=== PATIENT | female | born 1940 | race Caucasian/White ===

== ENCOUNTER → 2017-04-03 | Outpatient (CLI) | payer OTHER ==
[~2017-04-03] MED LIST: ACET10SO3 NEB; ALBUAER19 INH; BRVIN INH; CALC500C70 PO; CHOL1000 PO; ENOX40IN SQ; [UNRECOGNIZED DRUG - OTHER] NEB; prednisone PO
--- NOTE | 2017-04-03 16:32 | ECHOCARDIOGRAM REPORT ---
*NOTICE TO RECEIVING DEMOCRAT AGENCY This information is strictly Confidential and protected under [place] law. [place] law prohibits you from making any further disclosure of this information unless further disclosure is expressly permitted by the written consent of the person to whom it pertains or is authorized by law. A general authorization for the release of medical or other information is not sufficient for this purpose. Hospital accepts no responsibility if the information is made available to any other person, INCLUDING THE PATIENT. Interpretation Summary * Name: PREETHI TRINH Study Date: 04/03/2017 12:36 PM BP: 111/71 mmHg * Patient Location: [facility] HR: 69 * : 1940 (M/d/yyyy) Gender: Female Height: 64 in * Age: 77 yrs Ethnicity: [place] Weight: 144 lb * Ordering Physician: Alejandro Sales * Referring Physician: Alejandro Sales * Performed By: Cindy Edwards RDCS * * Reason For Study: Hypoxemia * BSA: 1.7 m2 * Normal biventricular systolic function. * Normal chamber dimensions. * Class I left ventricular diastolic dysfunction. * Trace pulmonic, mitral, and triscupid regurgitation. * No evidence of elevated right heart pressures. * -- Conclusions -- * Aortic valve sclerosis mild, without significant aortic valvular stenosis. Procedure Details * A complete two-dimensional transthoracic echocardiogram was performed (2D, M-mode, Doppler and color flow Doppler). Left Ventricle * The left ventricle is normal in size. * There is normal left ventricular wall thickness. * Ejection Fraction = 65-70%. * A full diastolic examination was done with clinical findings of Class I diastolic dysfunction. * The left ventricular wall motion is normal. Right Ventricle * The right ventricle is normal in size and function. * The right ventricular systolic function is normal as assessed by tricuspid annular plane systolic excursion (TAPSE) (normal >1.5 cm). Atria * The left atrial size is normal. * Right atrial size is normal. * No ASD detected; PFO is not assessed. Mitral Valve * There is mild mitral annular calcification. * There is no mitral valve stenosis. * There is trace mitral regurgitation. Tricuspid Valve * The tricuspid valve is normal. * There is no tricuspid stenosis. * There is trace tricuspid regurgitation. * Right ventricular systolic pressure is normal. Aortic Valve * The aortic valve is trileaflet. * The aortic valve opens well. * Aortic valve sclerosis mild, without significant aortic valvular stenosis. * No aortic regurgitation is present. Pulmonic Valve * The pulmonic valve is not well visualized. * Pulmonic stenosis is absent. * Trace pulmonic valvular regurgitation. Great Vessels * The aortic root is normal size. Pericardium/Pleural * There is no pericardial effusion. Great Vessels * Normal inferior vena cava diameter and respiratory variation suggests normal central venous pressure. MMode 2D Measurements and Calculations IVSd 0.90 cm IVSs 1.2 cm LVIDd 4.5 cm LVIDs 2.9 cm LVPWd 1.0 cm LVPWs 1.3 cm IVS/LVPW 0.89 FS 34.8 % EDV(Teich) 92.8 ml ESV(Teich) 33.3 ml EF(Teich) 64.1 % EDV(cubed) 91.6 ml ESV(cubed) 25.4 ml EF(cubed) 72.2 % % IVS thick 31.0 % % LVPW thick 26.9 % LV mass(C)d 143.9 grams LV mass(C)dI 84.6 grams/m\S\2 LV mass(C)s 110.2 grams LV mass(C)sI 64.8 grams/m\S\2 SV(Teich) 59.5 ml SI(Teich) 35.0 ml/m\S\2 SV(cubed) 66.2 ml SI(cubed) 38.9 ml/m\S\2 Ao root diam 3.1 cm Ao root area 7.4 cm\S\2 ACS 1.6 cm LA dimension 3.1 cm asc Aorta Diam 3.1 cm LA/Ao 1.0 LVAd ap4 20.7 cm\S\2 LVLd ap4 7.0 cm EDV(MOD-sp4) 53.5 ml EDV(sp4-el) 52.0 ml LVAs ap4 10.5 cm\S\2 LVLs ap4 5.8 cm ESV(MOD-sp4) 16.6 ml ESV(sp4-el) 16.0 ml EF(MOD-sp4) 68.9 % EF(sp4-el) 69.3 % LVAd ap2 22.2 cm\S\2 LVLd ap2 7.3 cm EDV(MOD-sp2) 59.2 ml EDV(sp2-el) 57.5 ml LVAs ap2 13.1 cm\S\2 LVLs ap2 6.7 cm ESV(MOD-sp2) 23.5 ml ESV(sp2-el) 21.8 ml EF(MOD-sp2) 60.3 % EF(sp2-el) 62.1 % LVLd %diff 3.3 % EDV(MOD-bp) 57.3 ml LVLs %diff 12.8 % ESV(MOD-bp) 20.8 ml EF(MOD-bp) 63.7 % SV(MOD-sp4) 36.9 ml SI(MOD-sp4) 21.7 ml/m\S\2 SV(MOD-sp2) 35.7 ml SI(MOD-sp2) 21.0 ml/m\S\2 SV(MOD-bp) 36.5 ml SI(MOD-bp) 21.5 ml/m\S\2 SV(sp4-el) 36.0 ml SI(sp4-el) 21.2 ml/m\S\2 SV(sp2-el) 35.7 ml SI(sp2-el) 21.0 ml/m\S\2 Doppler Measurements and Calculations MV E max marquis 65.0 cm/sec MV A max marquis 68.9 cm/sec MV E/A 0.94 MV dec time 0.30 sec Ao V2 max 120.8 cm/sec Ao max PG 5.8 mmHg Ao max PG (full) 1.8 mmHg LV V1 max PG 4.0 mmHg LV V1 max 100.4 cm/sec PA V2 max 103.2 cm/sec PA max PG 4.3 mmHg PI max marquis 142.5 cm/sec PI max PG 8.1 mmHg PI dec slope 103.0 cm/sec\S\2 PI P1/2t 405.2 msec
== END | disposition home or self-care (01) ==
LOC: C.CPL 12:24
PROVIDERS: ATTEND Internal Medicine Critical Care Medicine
DX: R09.02 Hypoxemia (principal)

== ENCOUNTER → 2017-09-17 | Outpatient (CLI) | payer OTHER ==
--- NOTE | 2017-09-22 15:02 | ECHOCARDIOGRAM REPORT ---
*NOTICE TO RECEIVING REPUBLICAN AGENCY This information is strictly Confidential and protected under [place] law. [place] law prohibits you from making any further disclosure of this information unless further disclosure is expressly permitted by the written consent of the person to whom it pertains or is authorized by law. A general authorization for the release of medical or other information is not sufficient for this purpose. Hospital accepts no responsibility if the information is made available to any other person, INCLUDING THE PATIENT. Interpretation Summary * Name: PREETHI TRINH Study Date: 09/17/2017 01:27 PM BP: 116/62 mmHg * Patient Location: [facility] HR: 77 * : 1940 (M/d/yyyy) Gender: Female Height: 62 in * Age: 77 yrs Ethnicity: [place] Weight: 144 lb * Ordering Physician: Zeus Garcia * Referring Physician: Zeus Garcia. * Performed By: Milli Coello RDCS * * Reason For Study: ENDOMETRIAL CA, METS, PRE-CHEMO * BSA: 1.7 m2 * -- Conclusions -- * 1. Normal LV size, moderate concentric LVH. * 2. LVEF 65-70%. No regional wall motion abnormalities. * 3. Normal RV size and function. * 4. No significant valvular pathology. * 5. Compared with prior study on 04/03/2017: No significant changes. Procedure Details * A complete two-dimensional transthoracic echocardiogram was performed (2D, M-mode, Doppler and color flow Doppler). Left Ventricle * The left ventricle is grossly normal size. * There is moderate concentric left ventricular hypertrophy. * Ejection Fraction = 65-70%. * No regional wall motion abnormalities noted. Right Ventricle * The right ventricle is grossly normal size. * The right ventricular systolic function is qualitatively normal. Atria * The left atrial size is normal. * The right atrium is borderline dilated. * No ASD detected; PFO is not assessed. Mitral Valve * The mitral valve leaflets appear thickened, but open well. * There is mild mitral annular calcification. * Calcified mitral apparatus. * There is borderline mitral valve prolapse. * There is no mitral valve stenosis. * Significant mitral regurgitation is absent. Tricuspid Valve * There is trace tricuspid regurgitation. Aortic Valve * The aortic valve is trileaflet. * No hemodynamically significant valvular aortic stenosis. * Trace aortic regurgitation. Pulmonic Valve * The pulmonary valve is inadequately visualized, but the Doppler data is adequate for interpretation. * There is no pulmonic valvular stenosis. * Trace pulmonic valvular regurgitation. Great Vessels * The aortic root and proximal ascending aorta are normal sized. Pericardium/Pleural * There is no pericardial effusion. Great Vessels * Normal inferior vena cava size and collapsability with sniff indicates a normal right atrial pressure of 3 mmHg MMode 2D Measurements and Calculations IVSd 1.8 cm IVSs 2.1 cm LVIDd 3.1 cm LVIDs 1.9 cm LVPWd 1.2 cm LVPWs 2.2 cm IVS/LVPW 1.4 FS 38.7 % EDV(Teich) 36.9 ml ESV(Teich) 10.9 ml EF(Teich) 70.5 % EDV(cubed) 28.9 ml ESV(cubed) 6.7 ml EF(cubed) 76.9 % % IVS thick 17.7 % % LVPW thick 77.8 % LV mass(C)d 160.8 grams LV mass(C)dI 96.7 grams/m\S\2 LV mass(C)s 186.9 grams LV mass(C)sI 112.4 grams/m\S\2 SV(Teich) 26.1 ml SI(Teich) 15.7 ml/m\S\2 SV(cubed) 22.2 ml SI(cubed) 13.4 ml/m\S\2 ACS 1.0 cm LA dimension 3.3 cm asc Aorta Diam 3.1 cm LVOT diam 1.9 cm LVOT area 2.7 cm\S\2 LVAd ap4 20.3 cm\S\2 LVLd ap4 6.8 cm EDV(MOD-sp4) 49.4 ml EDV(sp4-el) 51.4 ml LVAs ap4 9.4 cm\S\2 LVLs ap4 5.1 cm ESV(MOD-sp4) 14.4 ml ESV(sp4-el) 14.8 ml EF(MOD-sp4) 70.9 % EF(sp4-el) 71.3 % LVAd ap2 19.6 cm\S\2 LVLd ap2 6.8 cm EDV(MOD-sp2) 47.4 ml EDV(sp2-el) 48.1 ml LVAs ap2 10.5 cm\S\2 LVLs ap2 5.8 cm ESV(MOD-sp2) 15.7 ml ESV(sp2-el) 16.0 ml EF(MOD-sp2) 66.8 % EF(sp2-el) 66.8 % LVLd %diff 0.03 % EDV(MOD-bp) 48.4 ml LVLs %diff 12.6 % ESV(MOD-bp) 16.1 ml EF(MOD-bp) 66.7 % SV(MOD-sp4) 35.0 ml SI(MOD-sp4) 21.1 ml/m\S\2 SV(MOD-sp2) 31.7 ml SI(MOD-sp2) 19.1 ml/m\S\2 SV(MOD-bp) 32.3 ml SI(MOD-bp) 19.4 ml/m\S\2 SV(sp4-el) 36.7 ml SI(sp4-el) 22.0 ml/m\S\2 SV(sp2-el) 32.1 ml SI(sp2-el) 19.3 ml/m\S\2 Doppler Measurements and Calculations MV E max marquis 59.9 cm/sec MV A max marquis 83.6 cm/sec MV E/A 0.72 MV dec time 0.37 sec Ao V2 max 114.7 cm/sec Ao max PG 5.3 mmHg Ao max PG (full) 0.71 mmHg MORALES(V,A) 2.5 cm\S\2 MORALES(V,D) 2.5 cm\S\2 LV V1 max PG 4.6 mmHg LV V1 max 106.8 cm/sec PA V2 max 65.8 cm/sec PA max PG 1.7 mmHg PI end-d marquis 92.3 cm/sec
== END | disposition home or self-care (01) ==
LOC: C.CPL 13:23
PROVIDERS: ATTEND Internal Medicine Hematology
DX: Z01.818 Encounter for other preprocedural examination (principal); C54.1 Malignant neoplasm of endometrium; C79.51 Secondary malignant neoplasm of bone

== ENCOUNTER 2020-01-11 21:40 | Inpatient (IN) ==
[2020-01-11] MEDS ORDERED: ONDANSETRON INJ 2 MG/ML 2 ML VIAL IV STA (22:10)
--- NOTE | 2020-01-11 22:14 | Emergency Department Note ---
History of Present Illness General Chief complaint: Abdominal Pain Stated complaint: AB PAIN, GI ASSESSMENT Time Seen by Provider: 01/11/20 21:48 Source: patient, family and RN notes reviewed Mode of arrival: EMS Limitations: altered mental status History of Present Illness Provider complaint: Abdominal pain Onset (ago): day(s) Location: abdomen and left Severity: moderate Pain Consistency: + constant Maximum Pain Intensity: 5 Relieved By: + none Associated symptoms: + nausea/vomiting; no chest pain, no fever/chills and no shortness of breath This is an 79-year-old female who presents with abdominal pain for the past 3 days. She states it is located in the left upper quadrant as well as the right lower quadrant. It does not radiate to the back. She is unable to describe it. No modifying factors. It is associated with loss of appetite as well as vomiting which started today. Her son states that the vomit looks like coffee grounds but there was no bright red blood. She denies any fever, chest pain, shortness of breath or cough or cold symptoms. She did vomit in the ambulance which was said to resemble coffee-ground emesis. She does have a history of uterine cancer with mets to the left hip and has been on oxycodone for the past week. The patient's son states that she has seemed to be slower to respond since starting that medication. Home Medications Medication Instructions Recorded Confirmed Type metformin 850 mg tablet 850 mg PO BIDM 09/22/18 01/12/20 History cholecalciferol (vitamin D3) 25 1,000 units PO BID cap 04/20/19 01/12/20 History mcg (1,000 unit) capsule ondansetron 8 mg disintegrating 8 mg PO TID PRN tab 04/20/19 01/12/20 History tablet prochlorperazine maleate 10 mg 10 mg PO Q6H PRN tab 04/20/19 01/12/20 History tablet prednisone 10 mg tablet 10 mg PO DAILY #90 tab 11/14/19 01/12/20 Rx oxycodone 5 mg capsule 10 mg PO Q6H PRN 11/18/19 01/12/20 History albuterol sulfate 2 puff INHALATION Q4 PRN 01/12/20 01/12/20 History oxycodone [OxyContin] 20 mg PO Q12 01/12/20 01/12/20 History Allergies Allergy/AdvReac Type Severity Reaction Status Date / Time azithromycin Allergy Severe Hives Verified 01/12/20 00:38 mold Allergy Unknown SHORTNESS Verified 01/12/20 00:38 OF BREATH Past Med/Surg History Medical History Colitis COPD (chronic obstructive pulmonary disease) Endometrial cancer H/O chronic ulcerative colitis Left hip pain left hip / Core Needle BX Surgical History H/O elbow surgery Right elbow , surgery many yrs ago S/P KAREEN-BSO surgery 3 - 4 yrs ago Family History Mother , age 49 Heart disease enlarged heart Father , age 75 Stroke Brother , age 84 Prostate cancer Other No pertinent family history Social History Smoking Status: Never smoker Second Hand Exposure: No; Hx Alcohol Use: No Hx Substance Use: No Preferred Language: Mongolian Communication Ability: Effective Visual Impairment: No Limitations Hearing Ability: Normal Dinner Cook Required: No Beliefs That Will Affect Care: None marital status: Current Living Situation: Spouse Current Living Situation Comment: lives with who is a stroke victim / she takes care of him current occupational status: retired 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 and A total of 10 systems reviewed and were otherwise negative Physical Exam Vital Signs Vital Signs - 24 hr 01/11/20 21:53 01/11/20 21:55 01/11/20 22:00 Temperature 36.6 C Temperature Source Oral Pulse Rate 110 H 93 H Pulse Rate from SpO2 Sensor 100 H Respiratory Rate 18 15 Respiratory Effort / Characteristics Non-Labored Spontaneous Respiratory Depth Normal Respiratory Pattern Regular Blood Pressure 120/90 121/86 Blood Pressure Mean 100 96 Blood Pressure Position Lying Pulse Oximetry 92 92 92 Oxygen Delivery Method Room Air Room Air Room Air Sepsis Recent Fever Within 48 Hours No Sepsis New/Unexplained Change in Mental Status No Sepsis Action Taken by Nursing No Action Required 01/11/20 22:46 01/11/20 23:00 01/11/20 23:30 Temperature Temperature Source Pulse Rate 98 H 109 H 117 H Pulse Rate from SpO2 Sensor 97 H 110 H 117 H Respiratory Rate 16 16 16 Respiratory Effort / Characteristics Respiratory Depth Respiratory Pattern Blood Pressure 123/84 118/84 114/81 Blood Pressure Mean 92 91 86 Blood Pressure Position Pulse Oximetry 93 93 91 Oxygen Delivery Method Room Air Room Air Room Air Sepsis Recent Fever Within 48 Hours Sepsis New/Unexplained Change in Mental Status Sepsis Action Taken by Nursing 01/12/20 00:00 01/12/20 00:30 01/12/20 01:00 Temperature Temperature Source Pulse Rate 114 H 124 H 122 H Pulse Rate from SpO2 Sensor 103 H 122 H 122 H Respiratory Rate 16 18 19 Respiratory Effort / Characteristics Respiratory Depth Respiratory Pattern Blood Pressure 126/85 101/70 107/81 Blood Pressure Mean 92 88 88 Blood Pressure Position Pulse Oximetry 91 92 91 Oxygen Delivery Method Room Air Room Air Room Air Sepsis Recent Fever Within 48 Hours Sepsis New/Unexplained Change in Mental Status Sepsis Action Taken by Nursing Constitutional: Vital signs reviewed. Eyes: Pupils are equal round reactive to light. Conjunctiva are noninjected. ENT: Pharynx is clear without erythema or exudate. Mucous membranes are dry. Neck supple without meningeal signs. Respiratory: Clear to auscultation bilaterally. Breath sounds are equal bilaterally. Cardiovascular: Tachycardic. Heart rate 110. GI: Soft, nondistended with diffuse tenderness without guarding. Bowel sounds are present. Rectal: Guaiac negative brown stool. Musculoskeletal: No peripheral edema. No lower extremity tenderness. Integumentary: No cyanosis. or jaundice. Neurological: The patient is awake and alert. Slow to respond to questions. Moves all extremities. Cranial nerves grossly intact. Psychiatric: Normal affect. Not anxious appearing. Course Administered Medications Magnesium Sulfate/Dextrose (Magnesium Sulfate / D5w) 1 gm in 100 mls @ 50 mls/hr IV Q2H REESE Stop: 01/12/20 08:06 Last Admin: 01/12/20 00:43 Dose: 50 mls/hr Documented by: [id number] Discontinued Medications Sodium Chloride (Nss) 500 mls @ 500 mls/hr IV .Q1H ONE Stop: 01/12/20 00:55 Last Admin: 01/12/20 00:53 Dose: 500 mls/hr Documented by: [id number] Pantoprazole Sodium 80 mg/ (Dextrose) 100 mls @ 400 mls/hr IV ONE STA Stop: 01/12/20 00:14 Last Infusion: 01/12/20 00:35 Dose: 0 mls/hr Documented by: [id number] Admin: 01/12/20 00:20 Dose: 400 mls/hr Documented by: [id number] Ondansetron HCl (Ondansetron Inj 2 Mg/Ml 2 Ml Vial) 4 mg IV NOW STA Stop: 01/11/20 22:11 Last Admin: 01/11/20 22:15 Dose: 4 mg Documented by: [id number] Medical Decision Making Differential Diagnosis Upper GI bleed, anemia, SBO, metastatic disease to the abdomen, colitis Medical Records Attestation: I reviewed the patient's medical records. I did perform a limited focused review of portions of the patient's old chart o n the electronic medical record. The patient has had no recent pertinent visits to this hospital. I did obtain records from the [facility] system. The patient did have a ultrasound of the abdomen pelvis earlier today at 10:35 AM. This demonstrated 3 hypoechoic areas within the liver concerning for metastatic disease. She does have cholelithiasis without signs of cholecystitis. There is trace ascites and bilateral renal cysts. Home Medications Current Medication List: was personally reviewed by me Laboratory Data Attestation: I reviewed the patient's lab results. Result diagrams: 01/12/20 00:23 01/11/20 22:13 Lab Results 01/11/20 01/11/20 01/11/20 Range/Units 22:13 22:13 23:20 WBC 8.93 (4.8-10.8) K/uL RBC 4.50 (4.2-5.4) M/uL Hgb 10.5 L (12.0-16.0) g/dL Hct 33.5 L (37-47) % MCV 74.4 L (80-100) fL MCH 23.3 L (25-34) pg MCHC 31.3 L (32-36) g/dL RDW Std Deviation 48.9 H (36.4-46.3) fL RDW Coeff of Gretta 18.3 H (11.5-14.5) % Plt Count 506 H (130-400) K/uL MPV 8.6 (7.4-10.4) fL Immature Gran % (Auto) 0.4 % Neut % (Auto) 83.8 % Lymph % (Auto) 8.1 % [place] % (Auto) 7.7 % Eos % (Auto) 0.0 % Baso % (Auto) 0.0 % Neut # (Auto) 7.48 H (1.4-6.5) K/uL Lymph # (Auto) 0.72 L (1.2-3.4) K/uL [place] # (Auto) 0.69 H (0.11-0.59) K/uL Eos # (Auto) 0.00 (0-0.5) K/uL Baso # (Auto) 0.00 (0-0.2) K/uL Immature Gran # (Auto) 0.04 H (0.00-0.02) K/uL PT (9.0-12.0) Seconds INR (0.9-1.1) Sodium 133 L (136-145) mmol/L Potassium 3.7 (3.5-5.1) mmol/L Chloride 90 L (98-107) mmol/L Carbon Dioxide 32 (21-32) mmol/L Anion Gap 11.0 (3-11) BUN 32 H (7-18) mg/dl Creatinine 0.80 (0.6-1.2) mg/dl Est Cr Clr Drug Dosing 51.4 ml/min Est GFR ( Amer) 80.1 Est GFR (Non-Af Amer) 69.1 BUN/Creatinine Ratio 40.3 H (10-20) Glucose 142 H (70-99) mg/dl Calcium 9.2 (8.5-10.1) mg/dl Magnesium 1.2 L (1.8-2.4) mg/dl Total Bilirubin 0.4 (0.2-1) mg/dl AST 20 (15-37) U/L ALT 25 (12-78) U/L Alkaline Phosphatase 143 H (45-117) U/L Ammonia (11-32) umol/L Total Protein 7.1 (6.4-8.2) gm/dl Albumin 2.7 L (3.4-5.0) gm/dl Globulin 4.4 H (2.5-4.0) gm/dl Albumin/Globulin Ratio 0.6 L (0.9-2) Lipase 51 L (73-393) U/L Urine Color Dark Yellow Urine Appearance Clear (Clear) Urine pH 5.0 (4.5-7.5) Ur Specific [place] 1.030 (1.000-1.030) Urine Protein 1+ H (Negative) Urine Glucose (UA) Negative (Negative) Urine Ketones 1+ H (Negative) Urine Blood Negative (Negative) Urine Nitrite Negative (Negative) Urine Bilirubin 1+ H (Negative) Urine Urobilinogen Negative (Negative) Ur Leukocyte Esterase Trace H (Negative) Urine WBC (Auto) 1-5 (0-5) /hpf Urine RBC (Auto) 0-4 (0-4) /hpf U Hyaline Cast (Auto) 1-5 (0-5) /lpf U Epithel Cells (Auto) 5-10 H (0-5) /lpf Urine Bacteria (Auto) Negative (Negative) Gastric Fluid pH Gastric Occult Blood (Negative) SARS-CoV-2 Ag (Rapid) (Negative) 01/11/20 01/12/20 01/12/20 Range/Units 23:50 00:10 00:23 WBC (4.8-10.8) K/uL RBC (4.2-5.4) M/uL Hgb 10.4 L (12.0-16.0) g/dL Hct 33.3 L (37-47) % MCV (80-100) fL MCH (25-34) pg MCHC (32-36) g/dL RDW Std Deviation (36.4-46.3) fL RDW Coeff of Gretta (11.5-14.5) % Plt Count (130-400) K/uL MPV (7.4-10.4) fL Immature Gran % (Auto) % Neut % (Auto) % Lymph % (Auto) % [place] % (Auto) % Eos % (Auto) % Baso % (Auto) % Neut # (Auto) (1.4-6.5) K/uL Lymph # (Auto) (1.2-3.4) K/uL [place] # (Auto) (0.11-0.59) K/uL Eos # (Auto) (0-0.5) K/uL Baso # (Auto) (0-0.2) K/uL Immature Gran # (Auto) (0.00-0.02) K/uL PT (9.0-12.0) Seconds INR (0.9-1.1) Sodium (136-145) mmol/L Potassium (3.5-5.1) mmol/L Chloride (98-107) mmol/L Carbon Dioxide (21-32) mmol/L Anion Gap (3-11) BUN (7-18) mg/dl Creatinine (0.6-1.2) mg/dl Est Cr Clr Drug Dosing ml/min Est GFR ( Amer) Est GFR (Non-Af Amer) BUN/Creatinine Ratio (10-20) Glucose (70-99) mg/dl Calcium (8.5-10.1) mg/dl Magnesium (1.8-2.4) mg/dl Total Bilirubin (0.2-1) mg/dl AST (15-37) U/L ALT (12-78) U/L Alkaline Phosphatase (45-117) U/L Ammonia (11-32) umol/L Total Protein (6.4-8.2) gm/dl Albumin (3.4-5.0) gm/dl Globulin (2.5-4.0) gm/dl Albumin/Globulin Ratio (0.9-2) Lipase (73-393) U/L Urine Color Urine Appearance (Clear) Urine pH (4.5-7.5) Ur Specific [place] (1.000-1.030) Urine Protein (Negative) Urine Glucose (UA) (Negative) Urine Ketones (Negative) Urine Blood (Negative) Urine Nitrite (Negative) Urine Bilirubin (Negative) Urine Urobilinogen (Negative) Ur Leukocyte Esterase (Negative) Urine WBC (Auto) (0-5) /hpf Urine RBC (Auto) (0-4) /hpf U Hyaline Cast (Auto) (0-5) /lpf U Epithel Cells (Auto) (0-5) /lpf Urine Bacteria (Auto) (Negative) Gastric Fluid pH 3 Gastric Occult Blood Positive A (Negative) SARS-CoV-2 Ag (Rapid) Negative (Negative) 01/12/20 01/12/20 Range/Units 00:23 00:23 WBC (4.8-10.8) K/uL RBC (4.2-5.4) M/uL Hgb (12.0-16.0) g/dL Hct (37-47) % MCV (80-100) fL MCH (25-34) pg MCHC (32-36) g/dL RDW Std Deviation (36.4-46.3) fL RDW Coeff of Gretta (11.5-14.5) % Plt Count (130-400) K/uL MPV (7.4-10.4) fL Immature Gran % (Auto) % Neut % (Auto) % Lymph % (Auto) % [place] % (Auto) % Eos % (Auto) % Baso % (Auto) % Neut # (Auto) (1.4-6.5) K/uL Lymph # (Auto) (1.2-3.4) K/uL [place] # (Auto) (0.11-0.59) K/uL Eos # (Auto) (0-0.5) K/uL Baso # (Auto) (0-0.2) K/uL Immature Gran # (Auto) (0.00-0.02) K/uL PT 12.1 H (9.0-12.0) Seconds INR 1.2 H (0.9-1.1) Sodium (136-145) mmol/L Potassium (3.5-5.1) mmol/L Chloride (98-107) mmol/L Carbon Dioxide (21-32) mmol/L Anion Gap (3-11) BUN (7-18) mg/dl Creatinine (0.6-1.2) mg/dl Est Cr Clr Drug Dosing ml/min Est GFR ( Amer) Est GFR (Non-Af Amer) BUN/Creatinine Ratio (10-20) Glucose (70-99) mg/dl Calcium (8.5-10.1) mg/dl Magnesium (1.8-2.4) mg/dl Total Bilirubin (0.2-1) mg/dl AST (15-37) U/L ALT (12-78) U/L Alkaline Phosphatase (45-117) U/L Ammonia < 10.0 L (11-32) umol/L Total Protein (6.4-8.2) gm/dl Albumin (3.4-5.0) gm/dl Globulin (2.5-4.0) gm/dl Albumin/Globulin Ratio (0.9-2) Lipase (73-393) U/L Urine Color Urine Appearance (Clear) Urine pH (4.5-7.5) Ur Specific [place] (1.000-1.030) Urine Protein (Negative) Urine Glucose (UA) (Negative) Urine Ketones (Negative) Urine Blood (Negative) Urine Nitrite (Negative) Urine Bilirubin (Negative) Urine Urobilinogen (Negative) Ur Leukocyte Esterase (Negative) Urine WBC (Auto) (0-5) /hpf Urine RBC (Auto) (0-4) /hpf U Hyaline Cast (Auto) (0-5) /lpf U Epithel Cells (Auto) (0-5) /lpf Urine Bacteria (Auto) (Negative) Gastric Fluid pH Gastric Occult Blood (Negative) SARS-CoV-2 Ag (Rapid) (Negative) Imaging Data Radiologist's Impression: Preliminary Findings Only See Final Report For Complete Findings CT ABDOMEN & PELVIS Without Contrast: Comparison 11/09/2017. Small pleural effusions. Mild left basilar atelectasis or scarring. Several right basilar lung nodules measuring up to 6 mm. Multiple vague hypodense hepatic masses measuring up to 2.9 cm in the left lobe, suspicious for hepatic metastases. Markedly distended fluid-filled stomach with large air-fluid level. Diffusely dilated small bowel with multiple air-fluid levels. Findings suspicious for sm all bowel obstruction though a discrete transition point is not identified. There is a fecalized small bowel loop in the right pelvis. Right inguinal hernia, as before containing loop of small bowel and fluid. No significant dilatation of the afferent or efferent limbs. No evidence for acute appendicitis. Pancolonic diverticulosis. No CT evidence for diverticulitis. Calcified gallstones, as before. No abdominal aortic aneurysm. 2.6 cm fat-containing periumbilical ventral abdominal wall hernia, as before. Extensive diffuse osteoblastic metastases. Several thoracolumbar compression fracture deformities which may be pathologic. Radiologist: Tesfaye Chávez M.D. Study ready at 22:59 and initial results transmitted at 23:15 Preliminary Findings Only See Final Report For Complete Findings CT HEAD: Comparison 07/24/2012. No acute intracranial hemorrhage, edema or mass. Moderate ventriculomegaly, as before which may be related to central atrophy. Mild periventricular white matter chronic small vessel ischemic changes. No extra-axial fluid collection. No calvarial fracture. Obits, paranasal sinuses and mastoids are unremarkable. Radiologist: Tesfaye Chávez M.D. Study ready at 22:53 and initial results transmitted at 22:59 ECG Data Attestation: I personally reviewed and interpreted this ECG as follows: Indication: + abdominal pain Rate (beats per minute): 93 Rhythm: + normal sinus ECG Intervals/blocks: + Left anterior fascicular block ECG ST segments: no ST elevation ECG Findings: no PVCs MDM Narrative I did evaluate the patient as noted above. I did obtain history from the patient as well her as her son over the telephone. IV access was established. I did place an order for continuous cardiac monitoring. The monitor showed normal sinus rhythm at a rate of 97 bpm. I did order and personally review the patient's 12-lead EKG as described above. She has no acute ischemic changes. I did order a urine analysis. She does not have a UTI. I did order and review the patient's blood work as noted in the electronic medical record. Her white blood cell count is not elevated. Hemoglobin is 10.5 which is improved from her last visit. Sodium is 133. Glucose is slightly elevated. I did order a CT of the head, abdomen and pelvis. I did review the images myself as well as the radiology report as described above. Head CT is unremarkable. There is no evidence of metastatic disease. CT of the abdomen pelvis shows lesions in the liver concerning for metastatic disease as well as a small bowel obstruction. There is no transition point identified. She does have a right inguinal hernia which does not show any signs of bowel dilation or decompression. I did order a rapid Covid testing for admission. I did discuss the test results with the patient as well as her son over the telephone. I did order an NG tube to low continuous suction. The aspirate was sent down for gastric occult testing. She was guaiac-negative from below. The patient was hospitalized. I did discuss the case with the hospitalist and case technician. Impression & Plan SBO (small bowel obstruction), Hernia, inguinal, right, Anemia, Acute hyponatremia, Hematemesis Discharge Plan Visit Data Chief Complaint: Abdominal Pain Stated Complaint: AB PAIN, GI ASSESSMENT ED Provider: Alejandro Love Discharge Problem: SBO (small bowel obstruction), Hernia, inguinal, right, Anemia, Acute hyponatremia, Hematemesis Patient Disposition: Being Evaluated by Hospitalist Forms Stand Alone Forms: [facility] Prescriptions Prescriptions: No Action oxycodone 5 mg capsule 10 mg PO Q6H PRN (Reason: Severe Pain (Scale Score 7-10)) RF: 0 prednisone 10 mg tablet 10 mg PO DAILY Qty: 90 RF: 1 cholecalciferol (vitamin D3) 25 mcg (1,000 unit) capsule 1,000 units PO BID RF: 0 prochlorperazine maleate 10 mg tablet 10 mg PO Q6H PRN (Reason: Nausea) RF: 0 ondansetron 8 mg tablet,disintegrating 8 mg PO TID PRN (Reason: Nausea) RF: 0 oxycodone [OxyContin] 20 mg tablet,oral only,ext.rel.12 hr 20 mg PO Q12 RF: 0 albuterol sulfate 90 mcg/actuation Hfa Aerosol Inhaler 2 puff INHALATION Q4 PRN (Reason: Shortness Of Breath) RF: 0 metformin 850 mg tablet 850 mg PO BIDM RF: 0 Referrals Referrals: Josiah Reddy MD [Primary Care Provider] - Discharge Problem: Anemia Qualifiers: Anemia type: unspecified type Qualified Code(s): D64.9 - Anemia, unspecified Hematemesis Qualifiers: Nausea presence: unspecified Qualified Code(s): K92.0 - Hematemesis
[2020-01-11 22:26] LABS: Hematocrit (blood only) 33.5 % (37-47); Hemoglobin 10.5 g/dL (12.0-16.0); Immature Granulocytes # (auto) 0.04 K/uL (0.00-0.02); Immature Granulocytes % (auto) 0.4 %; Lymphocytes # (auto) 0.72 K/uL (1.2-3.4); Lymphocytes % (auto) 8.1 %; Mean Corpuscular Hemoglobin 23.3 pg (25-34); Mean Corpuscular Hgb Conc 31.3 g/dL (32-36); Mean Corpuscular Volume 74.4 fL (80-100); Mean Platelet Volume 8.6 fL (7.4-10.4); Monocytes # (auto) 0.69 K/uL (0.11-0.59); Monocytes % (auto) 7.7 %; Neutrophils # (auto) 7.48 K/uL (1.4-6.5); Neutrophils % (auto) 83.8 %; Platelet Count 506 K/uL (130-400); RDW Coefficient of Variation 18.3 % (11.5-14.5); RDW Standard Deviation 48.9 fL (36.4-46.3); White Blood Count 8.93 K/uL (4.8-10.8)
[2020-01-11 22:44] LABS: Albumin Level 2.7 gm/dl (3.4-5.0); BUN Creatinine Ratio 40.3 (10-20); Calcium 9.2 mg/dl (8.5-10.1); Creatinine Clr Calc Pharmacy 51.4 ml/min; Est GFR (African American) 80.1; Est GFR (Non-African American) 69.1; Potassium 3.7 mmol/L (3.5-5.1)
[2020-01-11 22:47] LABS: Albumin Globulin Ratio 0.6 (0.9-2); Bilirubin,Total 0.4 mg/dl (0.2-1); Globulin 4.4 gm/dl (2.5-4.0); Total Protein 7.1 gm/dl (6.4-8.2)
[2020-01-11] MEDS ORDERED: SODIUM CHLORIDE 0.9% 500 ML IV ONE (23:56)
[2020-01-12] MEDS ORDERED: PANTOprazole 80 MG in DEXTROSE 5% 100 ML IV STA
[2020-01-12 00:02] LABS: Magnesium 1.2 mg/dl (1.8-2.4)
[2020-01-12 00:04] LABS: Appearance Urine Clear (Clear); Bacteria Urine Automated Negative (Negative); Blood Urine Negative (Negative); Color Urine Dark Yellow; Glucose Urine UA Negative (Negative); Ketones Urine 1+ (Negative); Leukocyte Esterase Urine Trace (Negative); Nitrite Urine Negative (Negative); Protein Urine 1+ (Negative); RBC Urine Automated 0-4 /hpf (0-4); Urobilinogen Urine Negative (Negative)
[2020-01-12 00:06] LABS: Bilirubin Urine 1+ (Negative)
[2020-01-12 00:07] LABS: Ictotest Urine Positive (Negative)
[2020-01-12 00:34] LABS: Hematocrit (blood only) 33.3 % (37-47); Hemoglobin 10.4 g/dL (12.0-16.0)
[2020-01-12 00:43] LABS: INR 1.2 (0.9-1.1); Prothrombin Time 12.1 Seconds (9.0-12.0)
[2020-01-12] MEDS: MAGNESIUM SULFATE / D5W 1 GM/100 ML BAG IV SCH ×4 (00:43→05:37)
--- NOTE | 2020-01-12 01:00 | History & Physical Report ---
Date of Service January 12, 2020 Assessment & Plan (1) UGIB (upper gastrointestinal bleed): Secondary to gastritis from SBO hx colitis with microperforation (2018) hx metastatic endometrial cancer status post surgery/chemotherapy/radiation progressive disease with new liver/possible lung mets on recent imaging [id number] OxyContin contributory to SBO Hemoglobin currently better than baseline chronic anemia likely secondary to hemoconcentration COPD/asthma/chronic bronchiectasis on chronic steroid Rx, stable lung disease prediabetes, outpatient hemoglobin A1c of 5.01 October 2019 Medical telemetry IV PPI Serial H&H, transfuse PRBC if hemoglobin less than 7 and or for symptomatic anemia GI consult RE UGIB Bowel rest, continue NGT decompression Surgery consult RE bowel obstruction Suppository trial Appropriate to hold [id number] OxyContin for now given bowel obstruction. May benefit from inpatient palliative care consultation if patient's [facility] oncologist (Dr. Garcia) agreeable to delineate goals of care given progression of malignancy/metastatic burden. DVT prophylaxis. SCDs RE GI bleed Full code for now as per son/POA, Mr. Jose C Boucher. He requests updates from providers thru [id number]. Text document was generated using [employer] voice recognition software. It may contain grammatical or spelling errors. Kindly contact undersigned for clarification of any documentation item in question. History of Present Illness Chief Complaint: Abdominal pain as per records Primary Care Provider: Josiah Reddy MD History obtained from patient, family, and records. Limited history from patient secondary to chronic disorientation. Medical history significant for COPD/asthma/chronic bronchiectasis on chronic steroid Rx, metastatic endometrial cancer status post surgery/chemotherapy/radiation, chronic anemia (baseline hemoglobin 9), prediabetes. Last confinement October 2017 for sepsis secondary to colitis with microperforation status post conservative management. Patient decided to stop chemotherapy around April 2019. 4 months ago, patient had a mechanical fall which led to incidental discovery of bone mets on imaging. Patient mentation has not been the same after fall as per family. Patient family wondering about a stroke. Patient started by outpatient providers on [id number] OxyContin for uncontrolled hip bone mets pain last month. Patient/family to decide on chemotherapy as per recent outpatient Oncology note from last month. Re-radiation recommendation as per outpatient Radiation Oncology note from 2 months ago. Outpatient G Palliative Medicine recommended DNR/limited treatment after video meeting with patient last month which patient son was not in agreement with. 3 days achy abdominal pain with bilious emesis and constipation symptoms. Patient denies chest pain, shortness of breath, cough symptoms. Patient a little more confused than usual as per family. No fever, no chills. PCP office ordered outpatient abdominal ultrasound yesterday which showed 3 hypoechoic areas within the liver concerning for metastatic disease. Cholelithiasis. Bilateral renal cysts. Trace ascites. Emesis later noted to be coffee-ground. No OTC NSAID intake. Patient brought to the ER for evaluation. NGT inserted at the ER for bowel obstruction. 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 Allergies Allergy/AdvReac Type Severity Reaction Status Date / Time azithromycin Allergy Severe Hives Verified 01/12/20 00:38 mold Allergy Unknown SHORTNESS Verified 01/12/20 00:38 OF BREATH Home Medications Medication Instructions Recorded Confirmed Type metformin 850 mg tablet 850 mg PO BIDM 09/22/18 01/12/20 History cholecalciferol (vitamin D3) 25 1,000 units PO BID cap 04/20/19 01/12/20 History mcg (1,000 unit) capsule ondansetron 8 mg disintegrating 8 mg PO TID PRN tab 04/20/19 01/12/20 History tablet prochlorperazine maleate 10 mg 10 mg PO Q6H PRN tab 04/20/19 01/12/20 History tablet prednisone 10 mg tablet 10 mg PO DAILY #90 tab 11/14/19 01/12/20 Rx oxycodone 5 mg capsule 10 mg PO Q6H PRN 11/18/19 01/12/20 History albuterol sulfate 2 puff INHALATION Q4 PRN 01/12/20 01/12/20 History oxycodone [OxyContin] 20 mg PO Q12 01/12/20 01/12/20 History Past Med/Surg History Medical History Colitis COPD (chronic obstructive pulmonary disease) Endometrial cancer H/O chronic ulcerative colitis Left hip pain left hip / Core Needle BX Surgical History H/O elbow surgery Right elbow , surgery many yrs ago S/P KAREEN-BSO surgery 3 - 4 yrs ago Family History Mother , age 49 Heart disease enlarged heart Father , age 75 Stroke Brother , age 84 Prostate cancer Other No pertinent family history Social History Smoking Status: Never smoker Second Hand Exposure: No; Hx Alcohol Use: No Hx Substance Use: No Preferred Language: Spanish Communication Ability: Effective Visual Impairment: No Limitations Hearing Ability: Normal Music Historian Required: No Beliefs That Will Affect Care: None marital status: Current Living Situation: Spouse Current Living Situation Comment: lives with who is a stroke victim / she takes care of him current occupational status: retired 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 Feels Safe at Home: Yes Childhood Exposure to Second-Hand Smoke: Yes Assistive Devices: Glasses and Walker Review of Systems Review of Systems: Could not be reliably obtained Physical Exam Physical Exam: GENERAL: Comfortable, laconic, mild hearing impairment, no respiratory distress SKIN: Pallor, warm HEENT: Pale palpebral conjunctivae, no ptosis, dry buccal mucosa, NGT in place NECK : Supple, no tenderness CHEST : CTA, no tenderness HEART : Tachycardic, no obvious murmurs ABDOMEN: Some distention, nontender EXTREMITIES : No LE swelling/tenderness, no other conspicuous deformities noted NEUROLOGIC : Coherent, disoriented, no facial asymmetry, no other gross focality Results & Data Results & Data ([facility]) Vital Signs (Past 12 Hours) Vital Signs Temp Pulse Resp BP Pulse Ox 01/12/20 00:00 114 H 16 126/85 91 01/11/20 23:30 117 H 16 114/81 91 01/11/20 23:00 109 H 16 118/84 93 01/11/20 22:46 98 H 16 123/84 93 01/11/20 22:00 93 H 15 121/86 92 01/11/20 21:55 36.6 C 110 H 18 120/90 92 01/11/20 21:53 92 Laboratory Results Laboratory Results WBC 8.93 K/uL (4.8-10.8) 01/11/20 22:13 RBC 4.50 M/uL (4.2-5.4) 01/11/20 22:13 Hgb 10.4 g/dL (12.0-16.0) L 01/12/20 00:23 Hct 33.3 % (37-47) L 01/12/20 00:23 MCV 74.4 fL (80-100) L 01/11/20 22:13 MCH 23.3 pg (25-34) L 01/11/20 22:13 MCHC 31.3 g/dL (32-36) L 01/11/20 22:13 RDW Std Deviation 48.9 fL (36.4-46.3) H 01/11/20 22:13 RDW Coeff of Gretta 18.3 % (11.5-14.5) H 01/11/20 22:13 Plt Count 506 K/uL (130-400) H 01/11/20 22:13 MPV 8.6 fL (7.4-10.4) 01/11/20 22:13 Immature Gran % (Auto) 0.4 % 01/11/20 22:13 Neut % (Auto) 83.8 % 01/11/20 22:13 Lymph % (Auto) 8.1 % 01/11/20 22:13 [place] % (Auto) 7.7 % 01/11/20 22:13 Eos % (Auto) 0.0 % 01/11/20 22:13 Baso % (Auto) 0.0 % 01/11/20 22:13 Neut # (Auto) 7.48 K/uL (1.4-6.5) H 01/11/20 22:13 Lymph # (Auto) 0.72 K/uL (1.2-3.4) L 01/11/20 22:13 [place] # (Auto) 0.69 K/uL (0.11-0.59) H 01/11/20 22:13 Eos # (Auto) 0.00 K/uL (0-0.5) 01/11/20 22:13 Baso # (Auto) 0.00 K/uL (0-0.2) 01/11/20 22:13 Immature Gran # (Auto) 0.04 K/uL (0.00-0.02) H 01/11/20 22:13 PT 12.1 Seconds (9.0-12.0) H 01/12/20 00:23 INR 1.2 (0.9-1.1) H 01/12/20 00:23 Sodium 133 mmol/L (136-145) L 01/11/20 22:13 Potassium 3.7 mmol/L (3.5-5.1) 01/11/20 22:13 Chloride 90 mmol/L (98-107) L 01/11/20 22:13 Carbon Dioxide 32 mmol/L (21-32) 01/11/20 22:13 Anion Gap 11.0 (3-11) 01/11/20 22:13 BUN 32 mg/dl (7-18) H 01/11/20 22:13 Creatinine 0.80 mg/dl (0.6-1.2) 01/11/20 22:13 Est Cr Clr Drug Dosing 51.4 ml/min 01/11/20 22:13 Est GFR ( Amer) 80.1 01/11/20 22:13 Est GFR (Non-Af Amer) 69.1 01/11/20 22:13 BUN/Creatinine Ratio 40.3 (10-20) H 01/11/20 22:13 Glucose 142 mg/dl (70-99) H 01/11/20 22:13 Calcium 9.2 mg/dl (8.5-10.1) 01/11/20 22:13 Magnesium 1.2 mg/dl (1.8-2.4) L 01/11/20 22:13 Total Bilirubin 0.4 mg/dl (0.2-1) 01/11/20 22:13 AST 20 U/L (15-37) 01/11/20 22:13 ALT 25 U/L (12-78) 01/11/20 22:13 Alkaline Phosphatase 143 U/L (45-117) H 01/11/20 22:13 Ammonia < 10.0 umol/L (11-32) L 01/12/20 00:23 Total Protein 7.1 gm/dl (6.4-8.2) 01/11/20 22:13 Albumin 2.7 gm/dl (3.4-5.0) L 01/11/20 22:13 Globulin 4.4 gm/dl (2.5-4.0) H 01/11/20 22:13 Albumin/Globulin Ratio 0.6 (0.9-2) L 01/11/20 22:13 Lipase 51 U/L (73-393) L 01/11/20 22:13 Urine Color Dark Yellow 01/11/20 23:20 Urine Appearance Clear (Clear) 01/11/20 23:20 Urine pH 5.0 (4.5-7.5) 01/11/20 23:20 Ur Specific Magazine 1.030 (1.000-1.030) 01/11/20 23:20 Urine Protein 1+ (Negative) H 01/11/20 23:20 Urine Glucose (UA) Negative (Negative) 01/11/20 23:20 Urine Ketones 1+ (Negative) H 01/11/20 23:20 Urine Blood Negative (Negative) 01/11/20 23:20 Urine Nitrite Negative (Negative) 01/11/20 23:20 Urine Bilirubin 1+ (Negative) H 01/11/20 23:20 Urine Urobilinogen Negative (Negative) 01/11/20 23:20 Ur Leukocyte Esterase Trace (Negative) H 01/11/20 23:20 Urine WBC (Auto) 1-5 /hpf (0-5) 01/11/20 23:20 Urine RBC (Auto) 0-4 /hpf (0-4) 01/11/20 23:20 U Hyaline Cast (Auto) 1-5 /lpf (0-5) 01/11/20 23:20 U Epithel Cells (Auto) 5-10 /lpf (0-5) H 01/11/20 23:20 Urine Bacteria (Auto) Negative (Negative) 01/11/20 23:20 SARS-CoV-2 Ag (Rapid) Negative (Negative) 01/11/20 23:[address] head initial read: No acute intracranial hemorrhage, edema or mass. Moderate ventriculomegaly which may be related to central atrophy. Chronic small vessel ischemic changes. CT abdomen pelvis initial read: Small pleural effusions. Mild left basilar atelectasis or scarring. Several right basilar lung nodules measuring up to 6 mm. Hypodense hepatic masses measuring 2.9 cm left lobe suspicious for hepatic mets. Distended fluid-filled stomach with large air-fluid level. Diffusely dilated small bowel with multiple air-fluid levels suspicious for small bowel obstruction though a discrete transition point is not identified. Fecalized small bowel loops right pelvis. Right inguinal hernia as before containing loop of small bowel and fluid. No significant dilatation of apparent or efferent limbs. No appendicitis. Pancolonic diverticulosis. Calcified gallstones. Extensive diffuse osteoblastic mets. Several thoracolumbar compression fracture deformities which may be pathologic. EKG as per my interpretation: Rate 95, NSR, LAD, LAFB, T wave abnormality septal leads
[2020-01-12 01:05] LABS: Gastric Occult Blood Positive (Negative); pH Gastric Fluid 3
[2020-01-12] MEDS ORDERED: ACETAMINOPHEN 1,000 MG/100 ML VIAL IV PRN (01:06)
[2020-01-12] MEDS ORDERED: LACTATED RINGER'S 1,000 ML IV SCH (01:15)
[2020-01-12] MEDS ORDERED: MoRPHine SULFATE 2 MG/ML CARP IV PRN (01:17)
[2020-01-12] MEDS ORDERED: PROMETHAZINE HCL 6.25 MG in SODIUM CHLORIDE 0.9% 50 ML IV PRN (02:30)
[2020-01-12] MEDS ORDERED: bisacodyL 10 MG SUPP PR STA ×2 (02:30→12:07)
[2020-01-12] MEDS ORDERED: INFLUENZA VIRUS QUAD VACCINE 0.5 ML SYR IM ONE (02:54)
[2020-01-12] MEDS ORDERED: INFLUENZA ADMINISTRATION CHARGE ONE (02:54)
[2020-01-12] MEDS ORDERED: XOPENEX/ATROVENT 1.25mg/0.5MG NEB COMBO NEB PRN (05:56)
[2020-01-12] MEDS ORDERED: LEVALBUTEROL 1.25MG/0.5ML NEB INH PRN (06:00)
[2020-01-12] MEDS ORDERED: IPRATROPIUM BROMIDE NEB SOLN 0.02% 2.5 ML VIAL INH PRN (06:00)
--- NOTE | 2020-01-12 06:39 | CT Scan Report ---
CT head/brain wo con CLINICAL HISTORY: 79 years-old Female with confusion eval for mets. Acutely altered mental status. H istory of reported carcinoma. TECHNIQUE: Multiple axial CT images of the head were obtained without contrast. A dose lowering tech nique was utilized adhering to the principles of ALARA. CT DOSE: 920.69 mGy.cm COMPARISON: Head CT 07/24/2012, PET CT 01/05/2019. FINDINGS: No acute intracranial hemorrhage, midline shift, intracranial mass, hydrocephalus, territorial ischem ia or abnormal extra-axial collection. Age-related involutional changes with ex vacuo ventriculomegal y. Minimal white matter hypodensities suggest a component of chronic microvascular ischemic disease. Cerebral vascular calcifications. Senescent calcifications of the lentiform nuclei. The calvarium is intact. Note is made of a metopic suture. Indeterminate 1.4 cm area of sclerosis inv olves the left frontal calvarium which is new from the 2013 exam. Unchanged mild sclerosis of the rig ht frontal bone superior to the frontal sinus. The paranasal sinuses, mastoid air cells, and middle e ar cavities are clear. IMPRESSION: 1. No acute intracranial abnormality. 2. No evidence of intracranial metastatic disease. 3. 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 ACT 112: Negative or not required by law. The above report was generated using voice recognition software. It may contain grammatical, syntax o r spelling errors. Electronically signed by: Trent Chanel M.D. 01/12/2020 6:37 AM
[2020-01-12 07:33] LABS: Eosinophils # (auto) 0.02 K/uL (0-0.5); Eosinophils % (auto) 0.3 %; Hematocrit (blood only) 30.3 % (37-47); Hemoglobin 9.3 g/dL (12.0-16.0); Immature Granulocytes # (auto) 0.04 K/uL (0.00-0.02); Immature Granulocytes % (auto) 0.6 %; Lymphocytes % (auto) 11.3 %; Mean Corpuscular Hemoglobin 22.9 pg (25-34); Mean Corpuscular Hgb Conc 30.7 g/dL (32-36); Mean Corpuscular Volume 74.6 fL (80-100); Mean Platelet Volume 8.4 fL (7.4-10.4); Monocytes # (auto) 0.63 K/uL (0.11-0.59); Monocytes % (auto) 8.9 %; Neutrophils % (auto) 78.9 %; Platelet Count 394 K/uL (130-400); RDW Coefficient of Variation 18.3 % (11.5-14.5); RDW Standard Deviation 49.6 fL (36.4-46.3); Red Blood Count 4.06 M/uL (4.2-5.4); White Blood Count 7.09 K/uL (4.8-10.8)
[2020-01-12 08:04] LABS: BUN Creatinine Ratio 41.7 (10-20); Calcium 8.7 mg/dl (8.5-10.1); Creatinine Clr Calc Pharmacy 46.2 ml/min; Est GFR (African American) 81.4; Est GFR (Non-African American) 70.2; Magnesium 2.8 mg/dl (1.8-2.4); Potassium 3.4 mmol/L (3.5-5.1)
--- NOTE | 2020-01-12 08:10 | CT Scan Report ---
CT OF THE ABDOMEN AND PELVIS WITHOUT CONTRAST CLINICAL HISTORY: Abdominal pain. Evaluate for small bowel obstruction. History of malignancy. COMPARISON STUDY: PET/CT November 09, 2019. TECHNIQUE: Axial images of the abdomen and pelvis were obtained without IV contrast. Images were revi ewed in the axial, sagittal, and coronal planes. Automated exposure control was utilized for the kaye dy. A dose lowering technique was utilized adhering to the principles of ALARA. FINDINGS: Visualized portions of the lower chest demonstrate a large hiatal hernia. The stomach is fl uid-filled and distended. There are trace bilateral pleural effusions. A few small lower lung pulmona ry nodules measure up to 4 mm. These were not evident on PET/CT of November 09, 2019. No pneumatosis , free air or portal venous gas is present. Evaluation of the abdomen and pelvis is suboptimal on thi s unenhanced examination. Several hypodense hepatic lesions are noted. The largest is a 2.8 cm latera l segment hepatic lesion. These were not evident on the CT portion of the PET/CT of November 08 0. A gallstone is noted within the gallbladder. There is no pericholecystic infiltration. Mild gallbl adder distention is unchanged. There is no biliary ductal dilatation. Unenhanced images of the spleen , adrenal glands and pancreas are unremarkable. Water attenuation bilateral renal lesions reflect cys ts. There is extensive colonic diverticulosis without evidence for acute diverticulitis. Right inguin al hernia contains a loop of small bowel with a small amount of fluid. This does not appear to result in the bowel obstruction. The majority of the small bowel is dilated and fluid-filled. No definite t ransition point is identified however there is stool within small bowel within the right lower quadra nt. These findings suggest a small small bowel dilatation. Mild mesenteric infiltration and trace asc ites is noted. Numerous blastic metastases are similar to PET/CT of November 09, 2019. Several spine compression fractures may be pathologic. IMPRESSION: 1. Moderately dilated fluid-filled small bowel without definitive transition point however stool with in the right lower quadrant small bowel loops. The findings represent a small bowel obstruction. Mild associated mesenteric infiltration and interloop fluid. Fluid-filled distended stomach with hiatal h ernia. Nasogastric tube placement might be considered. 2. Interval development of several hypodense hepatic lesions consistent with metastases. A few small pulmonary nodules which were not present on prior PET/CT and are suspicious for metastases. 3. No significant change in blastic metastases. 4. Cholelithiasis. 5. Extensive colonic diverticulosis without evidence for acute diverticulitis. ACT 112: Negative or not required by law. Electronically signed by: Leonard Reza M.D. 01/12/2020 8:08 AM
[2020-01-12 08:14] LABS: Ovalocytes 1+
[2020-01-12] MEDS ORDERED: METOPROLOL TARTRATE 1 MG/ML VIAL IV ONE ×2 (08:40→15:45)
[2020-01-12] MEDS: POTASSIUM CHLORIDE / WTR 10 MEQ/100 ML PLCT IV SCH ×4 (08:56→11:40)
[2020-01-12] MEDS: PANTOprazole 40 MG in SYRINGE 0 ML IV SCH ×2 (08:56→20:59)
[2020-01-12] MEDS ORDERED: bisacodyL 10 MG SUPP PR SCH (09:00)
[2020-01-12] MEDS ORDERED: predniSONE 10 MG TABLET PO SCH (09:00)
[2020-01-12] MEDS ORDERED: METHYLPREDNISOLONE IV SCH (09:00)
--- NOTE | 2020-01-12 09:19 | Hospitalist Progress Note ---
Date of Service January 12, 2020 Assessment & Plan (1) SBO (small bowel obstruction): 79 year old female with history of COPD/Asthma, Bronchiectasis on Chronic Prednisone, Endometrial CA with Bone Mets s/p Chemo/Radiation/Surgery, and other problems noted below presenting with abdominal pain, coffee ground emesis. SMALL BOWEL OBSTRUCTION LIKELY FROM ADHESIONS, OXYCONTIN CT abd/pelv: 1. Moderately dilated fluid-filled small bowel without definitive transition point however stool within the right lower quadrant small bowel loops. The findings represent a small bowel obstruction. Mild associated mesenteric infiltration and interloop fluid. Fluid-filled distended stomach with hiatal h ernia. Nasogastric tube placement might be considered. 2. Interval development of several hypodense hepatic lesions consistent with metastases. A few small pulmonary nodules which were not present on prior PET/CT and are suspicious for metastases. 3. No significant change in blastic metastases. 4. Cholelithiasis. 5. Extensive colonic diverticulosis without evidence for acute diverticulitis. -- NG tube in place draining bilious output 200cc so far -- NPO, D5NSS + K replace K+ -- convert meds to IV -- General Surgery consulted POSSIBLE UPPER GI BLEED risk factor: chronic Prednisone use Hg at baseline Protonix IV BID GI consulted ATRIAL FIBRILLATION in RVR, NEW ONSET likely from underlying SBO, GI bleed given Metoprolol 5mg IV one dose, HR improved from 160s to 110s, BP 108/60 no symptoms Echo ordered Chair And Couch Maker consulted ENDOMETRIAL CA WITH BONE METS- PELVIS CT abd/pelvis showing new Liver mets and Pulm nodules per last ff up with Oncologist Dr. Garcia last month, family deciding on possible resumption of chemotherapy and initiation of palliative radiation therapy COPD/ASTHMA/BRONCHIECTASIS on chronic Prednisone 10mg po daily changed to Solumedrol 10mg IV daily DVT prophylaxis SCDs only in light of possible GI Bleed Disposition pending Of care discussed with patient's daughter in the morning and son over the phone in the evening All questions were answered She is understanding, agreeable, comfortable with the plan of care Admission and Anticipated Discharge Date Admission Date: January 12, 2020 Subjective ff up for SBO, possible upper GI bleed called by RN to report patient converted to A fib in RVR HR 140s, BP 108/70 EKG confirmed A fib in RVR seen at bedside, resting, comfortable, not in distress, oriented x 2, answers questions appropriately denies chest pain, palpitations, dizziness, dyspnea, nausea, abdominal pain no BM yet, no flatus no other symptoms Review of Systems Review of Systems: All systems reviewed & are unremarkable except as noted in Subjective Physical Exam Physical Exam: General- oriented x 2, not in distress, speaks in sentences with no effort or accessory muscle use Head- atraumatic Eyes- PERRL, EOMI, anicteric ENT- oropharynx clear; (+) dry oral mucosa NG tube in place draining bilious fluid Neck- supple, no JVD, no adenopathy, no thyromegaly; carotids +2/2, no bruits appreciated Lungs- clear to auscultation bilaterally, no rales/wheezes Heart- tachycardic, irregularly irregular rhythm; no murmurs, no gallop, no rub appreciated Abdomen- hypoactive bowel sounds, nondistended, soft, nontender, no masses or hepatosplenomegaly Extremities- no pretibial edema, no calf tenderness; peripheral pulses intact Neuro- alert, oriented x 2; CN 2-12 grossly intact; motor 5/5 bilaterally;sensation 100% on all extremities; no other gross focal neurologic deficits Skin- warm & dry Results & Data Results & Data ([facility]) Vital Signs (Past 12 Hours) Vital Signs Temp Pulse Pulse Resp BP BP Pulse Ox 01/12/20 08:44 155 H 110/60 01/12/20 07:35 36.8 C 113 H 16 108/70 93 01/12/20 02:45 109 H 01/12/20 02:15 37.2 C 111 H 20 102/72 93 01/12/20 02:02 115 H 16 111/92 92 01/12/20 01:30 109 H 17 135/69 94 01/12/20 01:00 122 H 19 107/81 91 01/12/20 00:30 124 H 18 101/70 92 01/12/20 00:00 114 H 16 126/85 91 01/11/20 23:30 117 H 16 114/81 91 01/11/20 23:00 109 H 16 118/84 93 01/11/20 22:46 98 H 16 123/84 93 01/11/20 22:00 93 H 15 121/86 92 01/11/20 21:55 36.6 C 110 H 18 120/90 92 01/11/20 21:53 92 Laboratory Results Laboratory Results - last 24 hr 01/11/20 01/11/20 01/11/20 22:13 22:13 23:20 WBC 8.93 RBC 4.50 Hgb 10.5 L Hct 33.5 L MCV 74.4 L MCH 23.3 L MCHC 31.3 L RDW Std Deviation 48.9 H RDW Coeff of Gretta 18.3 H Plt Count 506 H MPV 8.6 Immature Gran % (Auto) 0.4 Neut % (Auto) 83.8 Lymph % (Auto) 8.1 Stephens % (Auto) 7.7 Eos % (Auto) 0.0 Baso % (Auto) 0.0 Neut # (Auto) 7.48 H Lymph # (Auto) 0.72 L Stephens # (Auto) 0.69 H Eos # (Auto) 0.00 Baso # (Auto) 0.00 Immature Gran # (Auto) 0.04 H Ovalocytes PT INR Sodium 133 L Potassium 3.7 Chloride 90 L Carbon Dioxide 32 Anion Gap 11.0 BUN 32 H Creatinine 0.80 Est Cr Clr Drug Dosing 51.4 Est GFR ( Amer) 80.1 Est GFR (Non-Af Amer) 69.1 BUN/Creatinine Ratio 40.3 H Glucose 142 H Calcium 9.2 Magnesium 1.2 L Total Bilirubin 0.4 AST 20 ALT 25 Alkaline Phosphatase 143 H Ammonia Total Protein 7.1 Albumin 2.7 L Globulin 4.4 H Albumin/Globulin Ratio 0.6 L Lipase 51 L Urine Color Dark Yellow Urine Appearance Clear Urine pH 5.0 Ur Specific [place] 1.030 Urine Protein 1+ H Urine Glucose (UA) Negative Urine Ketones 1+ H Urine Blood Negative Urine Nitrite Negative Urine Bilirubin 1+ H Urine Urobilinogen Negative Ur Leukocyte Esterase Trace H Urine WBC (Auto) 1-5 Urine RBC (Auto) 0-4 U Hyaline Cast (Auto) 1-5 U Epithel Cells (Auto) 5-10 H Urine Bacteria (Auto) Negative Gastric Fluid pH Gastric Occult Blood SARS-CoV-2 Ag (Rapid) Blood Type Antibody Screen 01/11/20 01/12/20 01/12/20 23:50 00:10 00:23 WBC RBC Hgb Hct MCV MCH MCHC RDW Std Deviation RDW Coeff of Gretta Plt Count MPV Immature Gran % (Auto) Neut % (Auto) Lymph % (Auto) Stephens % (Auto) Eos % (Auto) Baso % (Auto) Neut # (Auto) Lymph # (Auto) Stephens # (Auto) Eos # (Auto) Baso # (Auto) Immature Gran # (Auto) Ovalocytes PT INR Sodium Potassium Chloride Carbon Dioxide Anion Gap BUN Creatinine Est Cr Clr Drug Dosing Est GFR ( Amer) Est GFR (Non-Af Amer) BUN/Creatinine Ratio Glucose Calcium Magnesium Total Bilirubin AST ALT Alkaline Phosphatase Ammonia Total Protein Albumin Globulin Albumin/Globulin Ratio Lipase Urine Color Urine Appearance Urine pH Ur Specific [place] Urine Protein Urine Glucose (UA) Urine Ketones Urine Blood Urine Nitrite Urine Bilirubin Urine Urobilinogen Ur Leukocyte Esterase Urine WBC (Auto) Urine RBC (Auto) U Hyaline Cast (Auto) U Epithel Cells (Auto) Urine Bacteria (Auto) Gastric Fluid pH 3 Gastric Occult Blood Positive A SARS-CoV-2 Ag (Rapid) Negative Blood Type A Positive Antibody Screen NEGATIVE 01/12/20 01/12/20 01/12/20 00:23 00:23 00:23 WBC RBC Hgb 10.4 L Hct 33.3 L MCV MCH MCHC RDW Std Deviation RDW Coeff of Gretta Plt Count MPV Immature Gran % (Auto) Neut % (Auto) Lymph % (Auto) Stephens % (Auto) Eos % (Auto) Baso % (Auto) Neut # (Auto) Lymph # (Auto) Stephens # (Auto) Eos # (Auto) Baso # (Auto) Immature Gran # (Auto) Ovalocytes PT 12.1 H INR 1.2 H Sodium Potassium Chloride Carbon Dioxide Anion Gap BUN Creatinine Est Cr Clr Drug Dosing Est GFR ( Amer) Est GFR (Non-Af Amer) BUN/Creatinine Ratio Glucose Calcium Magnesium Total Bilirubin AST ALT Alkaline Phosphatase Ammonia < 10.0 L Total Protein Albumin Globulin Albumin/Globulin Ratio Lipase Urine Color Urine Appearance Urine pH Ur Specific [place] Urine Protein Urine Glucose (UA) Urine Ketones Urine Blood Urine Nitrite Urine Bilirubin Urine Urobilinogen Ur Leukocyte Esterase Urine WBC (Auto) Urine RBC (Auto) U Hyaline Cast (Auto) U Epithel Cells (Auto) Urine Bacteria (Auto) Gastric Fluid pH Gastric Occult Blood SARS-CoV-2 Ag (Rapid) Blood Type Antibody Screen 01/12/20 01/12/20 07:19 07:19 WBC 7.09 RBC 4.06 L Hgb 9.3 L Hct 30.3 L MCV 74.6 L MCH 22.9 L MCHC 30.7 L RDW Std Deviation 49.6 H RDW Coeff of Gretta 18.3 H Plt Count 394 MPV 8.4 Immature Gran % (Auto) 0.6 Neut % (Auto) 78.9 Lymph % (Auto) 11.3 Stephens % (Auto) 8.9 Eos % (Auto) 0.3 Baso % (Auto) 0.0 Neut # (Auto) 5.60 Lymph # (Auto) 0.80 L Stephens # (Auto) 0.63 H Eos # (Auto) 0.02 Baso # (Auto) 0.00 Immature Gran # (Auto) 0.04 H Ovalocytes 1+ PT INR Sodium 131 L Potassium 3.4 L Chloride 92 L Carbon Dioxide 32 Anion Gap 7.0 BUN 33 H Creatinine 0.79 Est Cr Clr Drug Dosing 46.2 Est GFR ( Amer) 81.4 Est GFR (Non-Af Amer) 70.2 BUN/Creatinine Ratio 41.7 H Glucose 127 H Calcium 8.7 Magnesium 2.8 H Total Bilirubin AST ALT Alkaline Phosphatase Ammonia Total Protein Albumin Globulin Albumin/Globulin Ratio Lipase Urine Color Urine Appearance Urine pH Ur Specific [place] Urine Protein Urine Glucose (UA) Urine Ketones Urine Blood Urine Nitrite Urine Bilirubin Urine Urobilinogen Ur Leukocyte Esterase Urine WBC (Auto) Urine RBC (Auto) U Hyaline Cast (Auto) U Epithel Cells (Auto) Urine Bacteria (Auto) Gastric Fluid pH Gastric Occult Blood SARS-CoV-2 Ag (Rapid) Blood Type Antibody Screen
[2020-01-12] MEDS ORDERED: AMIODARONE IV BOLUS & DRIP IV STA (09:53)
[2020-01-12] MEDS ORDERED: STAT IV Infusion **Titration per Protocol STA (09:53)
[2020-01-12] MEDS ORDERED: SODIUM CHLORIDE 0.9% 1000ML 500 ML IV ONE (09:53)
[2020-01-12] MEDS: METHYLPREDNISOLONE IV SCH (10:08)
[2020-01-12] MEDS ORDERED: AMIODARONE / D5W 150 MG/100 ML BAG IV ONE (10:15)
[2020-01-12] MEDS ORDERED: 0.2 MICRON FILTER SET 1 EA IV ONE (10:15)
[2020-01-12] MEDS ORDERED: AMIODARONE / D5W 360 MG/200 ML BAG IV ONE (10:30)
--- NOTE | 2020-01-12 11:02 | Gastrointestinal Consultation ---
Date of Consultation January 12, 2020 Assessment & Plan (1) SBO (small bowel obstruction): Doubt that she has experienced a significant GI bleed. The initial dark gastric contents likely represented bilious fluid or some mild diffuse bleeding from gastritis associated with the gastric distention. Her Hb remains at baseline and BUN is only minimally elevated. Will continue to follow pt. Recommend BID PPI, IV For now, no plans for EGD, will reconsider significant drop in Hb/Hct, if melena or if bloody or coffee grounds through the NG tube. Present on Admission?: Yes Supervising Physician Co-Signing Physician Notes Attending attestation I have seen, examined this patient, and agree with the findings and above by our mid-level provider STEPHANIE Araya, with the following additions: - SBO with bilious fluid - Care and management per surgery - Hb near baseline, no signs or symptoms of acute GI bleeding - Continue PPI - Call with questions History of Present Illness Reason for Consultation: ugib Requesting Physician: Dr. Marvin Attending Physician: Victor Manuel Cowan MD History of Present Illness Ms. Shila Boucher is an 79 yr old female pt of Dr. Gilbert with a hx of COPD/asthma/chronic bronchiectasis on chronic steroid Rx, metastatic endometrial cancer status post surgery/chemotherapy/radiation, chronic anemia (baseline hemoglobin 9), prediabetes. There is recent evidence of progression of her metastatic endometrial cancer with new liver lesions on recent OP US and CT on arrival. She has not been on chemo since May 2019. She is on chronic OxyContin for pain from cancer and m/s pain from a recent fall etc. She was brought to the ED yesterday for abdominal pain, nausea, vomiting. She tells me that she was feeling week. She believes that she passed one BM that looked like coffee grounds, unsure of exactly when this occurred. Imaging on arrival with suggestion of SBO. GI is consulted for UGI bleed. Her NG output appears green/black. Her Hb on arrival was 10.5 ->9.3. Her approximate baseline is 9.5. She has had improvement in pain since the NG was placed, but when asked indicates that she continues to have some diffuse abdominal pain. No BMs or vomiting since prior to arrival. This morning, he was found to be in A- fib with RVR and was transferred to the PCU. Allergies Allergy/AdvReac Type Severity Reaction Status Date / Time azithromycin Allergy Severe Hives Verified 01/12/20 00:38 mold Allergy Unknown SHORTNESS Verified 01/12/20 00:38 OF BREATH Home Medications Medication Instructions Recorded Confirmed Type metformin 850 mg tablet 850 mg PO BIDM 09/22/18 01/12/20 History cholecalciferol (vitamin D3) 25 1,000 units PO BID cap 04/20/19 01/12/20 History mcg (1,000 unit) capsule ondansetron 8 mg disintegrating 8 mg PO TID PRN tab 04/20/19 01/12/20 History tablet prochlorperazine maleate 10 mg 10 mg PO Q6H PRN tab 04/20/19 01/12/20 History tablet prednisone 10 mg tablet 10 mg PO DAILY #90 tab 11/14/19 01/12/20 Rx oxycodone 5 mg capsule 10 mg PO Q6H PRN 11/18/19 01/12/20 History albuterol sulfate 2 puff INHALATION Q4 PRN 01/12/20 01/12/20 History oxycodone [OxyContin] 20 mg PO Q12 01/12/20 01/12/20 History Patient History Medical History Colitis COPD (chronic obstructive pulmonary disease) Endometrial cancer H/O chronic ulcerative colitis Left hip pain left hip / Core Needle BX Surgical History H/O elbow surgery Right elbow , surgery many yrs ago S/P KAREEN-BSO surgery 3 - 4 yrs ago Family History Mother , age 49 Heart disease enlarged heart Father , age 75 Stroke Brother , age 84 Prostate cancer Other No pertinent family history Social History Smoking Status: Never smoker Second Hand Exposure: No; Hx Alcohol Use: No Hx Substance Use: No Preferred Language: [place] Communication Ability: Effective Visual Impairment: No Limitations Hearing Ability: Normal Business Process Expert Required: No Beliefs That Will Affect Care: None marital status: Current Living Situation: Spouse Current Living Situation Comment: lives with who is a stroke victim / she takes care of him current occupational status: retired 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 How many Children do You have: 4 Feels Safe at Home: Yes Childhood Exposure to Second-Hand Smoke: Yes Assistive Devices: Glasses and Walker Review of Systems Review of Systems: ROS: Gen: + weakness, and weight loss Denies fevers Eyes: No eye redness, or pain, no recent vision changes Resp: No SOB, no cough Cardio: + palpitations; no chest pain GI: She HPI, otherwise (-) : Denies pain on urination Skin: No jaundice, itching or new rashes Physical Exam Constitutional: + ill appearing, average body habitus, + frail appearing and cooperative Eyes: PERRL, conjunctivae normal, anicteric sclerae ENMT: external ear and nose normal, oropharynx normal Neck: trachea midline, no thyromegaly Respiratory: normal respiratory effort, lungs clear to auscultation Cardiovascular: Rate/Rhythm: + irregularly irregular Heart Sounds: no murmur Vessels: no JVD Gastrointestinal (Abdomen): Inspection/Auscultation: + abdomen distended (mildly) and + hypoactive bowel sounds Percussion/Palpation: + abdomen tender (mild, diffuse ) Musculoskeletal: no cyanosis or clubbing, extremities motor strength 5/5 Skin: no rashes, warm and dry Neurologic: PERRL, EOMI, accommodation nl, no face palsy, no dysarthria Psychiatric: Orientation: alert, oriented to person and oriented to place Eye Contact: good eye contact Speech: + mute Affect: + flat affect Lymphatic: no cervical or axillary lymphadenopathy Results & Data ([facility]) Vital Signs (Past 12 Hours) Vital Signs Temp Pulse Pulse Resp BP BP Pulse Ox 01/12/20 08:44 155 H 110/60 01/12/20 07:35 36.8 C 113 H 16 108/70 93 01/12/20 02:45 109 H 01/12/20 02:15 37.2 C 111 H 20 102/72 93 01/12/20 02:02 115 H 16 111/92 92 01/12/20 01:30 109 H 17 135/69 94 01/12/20 01:00 122 H 19 107/81 91 01/12/20 00:30 124 H 18 101/70 92 11/19/20 00:00 114 H 16 126/85 91 01/11/20 23:30 117 H 16 114/81 91 01/11/20 23:00 109 H 16 118/84 93 Laboratory Results WBC 7, Hb 9.3, Hct 30, Plts 394, Na 131, K 3.4, BN 33, Cr 0.79, Diagnostic Findings CT abd pelvis 01/10 (non contrast): 1. Moderately dilated fluid-filled small bowel without definitive transition point however stool within the right lower quadrant small bowel loops. The findings represent a small bowel obstruction. Mild associated mesenteric infiltration and interloop fluid. Fluid-filled distended stomach with hiatal hernia. Nasogastric tube placement might be considered. 2. Interval development of several hypodense hepatic lesions consistent with metastases. A few small pulmonary nodules which were not present on prior PET/CT and are suspicious for metastases. 3. No significant change in blastic metastases. 4. Cholelithiasis. 5. Extensive colonic diverticulosis without evidence for acute diverticulitis.
--- NOTE | 2020-01-12 12:02 | Surgery Consultation ---
Date of Consultation January 12, 2020 Assessment & Plan (1) SBO (small bowel obstruction): pt is 79 year-old female who was admitted to hospital for SBO, pt has not passed BM 2 days, no vomiting, IMP: SBO Plan, conservation treatment , no emergent surgery indication now, IV fluid, NPO, NG tube, repeat labs in am, will F/U Present on Admission?: Yes History of Present Illness Attending Physician: Victor Manuel Cowan MD History of Present Illness Chief Complaint: Abdominal pain as per records Primary Care Provider: Josiah Reddy MD History obtained from patient, family, and records. Limited history from patient secondary to chronic disorientation. Medical history significant for COPD/asthma/chronic bronchiectasis on chronic steroid Rx, metastatic endometrial cancer status post surgery/chemotherapy/radiation, chronic anemia (baseline hemoglobin 9), prediabetes. Last confinement October 2017 for sepsis secondary to colitis with microperforation status post conservative management. Patient decided to stop chemotherapy around April 2019. 4 months ago, patient had a mechanical fall which led to incidental discovery of bone mets on imaging. Patient mentation has not been the same after fall as per family. Patient family wondering about a stroke. Patient started by outpatient providers on [id number] OxyContin for uncontrolled hip bone mets pain last month. Patient/family to decide on chemotherapy as per recent outpatient Oncology note from last month. Re-radiation recommendation as per outpatient Radiation Oncology note from 2 months ago. Outpatient [facility] recommended DNR/limited treatment after video meeting with patient last month which patient son was not in agreement with. 3 days achy abdominal pain with bilious emesis and constipation symptoms. Patient denies chest pain, shortness of breath, cough symptoms. Patient a little more confused than usual as per family. No fever, no chills. PCP office ordered outpatient abdominal ultrasound yesterday which showed 3 hypoechoic areas within the liver concerning for metastatic disease. Cholelithiasis. Bilateral renal cysts. Trace ascites. Emesis later noted to be coffee-ground. No OTC NSAID intake. Patient brought to the ER for evaluation. NGT inserted at the ER for bowel obstruction. I ( Fariha Dee mD ) got a call for consult SBO, I reviewed pt's H/P, labs, CT scan with pt, pt has no significant abdominal pain, no nausea, no vomiting, pt had NG tube in clear fluid, no active UGI bleeding, pt developed A-Fib pt was transferred to monitor bed. 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 Allergies Allergy/AdvReac Type Severity Reaction Status Date / Time azithromycin Allergy Severe Hives Verified 01/12/20 00:38 mold Allergy Unknown SHORTNESS Verified 01/12/20 00:38 OF BREATH Home Medications Medication Instructions Recorded Confirmed Type metformin 850 mg tablet 850 mg PO BIDM 09/22/18 01/12/20 History cholecalciferol (vitamin D3) 25 1,000 units PO BID cap 04/20/19 01/12/20 History mcg (1,000 unit) capsule ondansetron 8 mg disintegrating 8 mg PO TID PRN tab 04/20/19 01/12/20 History tablet prochlorperazine maleate 10 mg 10 mg PO Q6H PRN tab 04/20/19 01/12/20 History tablet prednisone 10 mg tablet 10 mg PO DAILY #90 tab 11/14/19 01/12/20 Rx oxycodone 5 mg capsule 10 mg PO Q6H PRN 11/18/19 01/12/20 History albuterol sulfate 2 puff INHALATION Q4 PRN 01/12/20 01/12/20 History oxycodone [OxyContin] 20 mg PO Q12 01/12/20 01/12/20 History Past Med/Surg History Medical History Colitis COPD (chronic obstructive pulmonary disease) Endometrial cancer H/O chronic ulcerative colitis Left hip pain left hip / Core Needle BX Surgical History H/O elbow surgery Right elbow , surgery many yrs ago S/P KAREEN-BSO surgery 3 - 4 yrs ago Family History Mother , age 49 Heart disease enlarged heart Father , age 75 Stroke Brother , age 84 Prostate cancer Other No pertinent family history Social History Smoking Status: Never smoker Second Hand Exposure: No; Hx Alcohol Use: No Hx Substance Use: No Preferred Language: Honduran Communication Ability: Effective Visual Impairment: No Limitations Hearing Ability: Normal Accounts Payable Accountant Required: No Beliefs That Will Affect Care: None marital status: Current Living Situation: Spouse Current Living Situation Comment: lives with who is a stroke victim / she takes care of him current occupational status: retired 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 Feels Safe at Home: Yes Childhood Exposure to Second-Hand Smoke: Yes Assistive Devices: Glasses and Walker Review of Systems Review of Systems: Could not be reliably obtained Allergies Allergy/AdvReac Type Severity Reaction Status Date / Time azithromycin Allergy Severe Hives Verified 01/12/20 00:38 mold Allergy Unknown SHORTNESS Verified 01/12/20 00:38 OF BREATH Home Medications Medication Instructions Recorded Confirmed Type metformin 850 mg tablet 850 mg PO BIDM 09/22/18 01/12/20 History cholecalciferol (vitamin D3) 25 1,000 units PO BID cap 04/20/19 01/12/20 History mcg (1,000 unit) capsule ondansetron 8 mg disintegrating 8 mg PO TID PRN tab 04/20/19 01/12/20 History tablet prochlorperazine maleate 10 mg 10 mg PO Q6H PRN tab 04/20/19 01/12/20 History tablet prednisone 10 mg tablet 10 mg PO DAILY #90 tab 11/14/19 01/12/20 Rx oxycodone 5 mg capsule 10 mg PO Q6H PRN 11/18/19 01/12/20 History albuterol sulfate 2 puff INHALATION Q4 PRN 01/12/20 01/12/20 History oxycodone [OxyContin] 20 mg PO Q12 01/12/20 01/12/20 History Patient History Medical History Colitis COPD (chronic obstructive pulmonary disease) Endometrial cancer H/O chronic ulcerative colitis Left hip pain left hip / Core Needle BX Surgical History H/O elbow surgery Right elbow , surgery many yrs ago S/P KAREEN-BSO surgery 3 - 4 yrs ago Family History Mother , age 49 Heart disease enlarged heart Father , age 75 Stroke Brother , age 84 Prostate cancer Other No pertinent family history Social History Smoking Status: Never smoker Second Hand Exposure: No; Hx Alcohol Use: No Hx Substance Use: No Preferred Language: Honduran Communication Ability: Effective Visual Impairment: No Limitations Hearing Ability: Normal Accounts Payable Accountant Required: No Beliefs That Will Affect Care: None marital status: Current Living Situation: Spouse Current Living Situation Comment: lives with who is a stroke victim / she takes care of him current occupational status: retired 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 How many Children do You have: 4 Feels Safe at Home: Yes Childhood Exposure to Second-Hand Smoke: Yes Assistive Devices: Glasses and Walker Review of Systems Review of Systems: All systems reviewed & are unremarkable except as noted in HPI & below Constitutional: as per Subjective / HPI Eyes: as per Subjective / HPI Ear, Nose, Mouth, Throat: as per Subjective / HPI Respiratory: as per Subjective / HPI COPD, bronchiectasis, acute respiratory failure Cardiovascular: as per Subjective / HPI Additional Comments: A-fib Gastrointestinal: as per Subjective / HPI right inguinal hernia, colitis, bowel perforation Genitourinary: as per Subjective / HPI endometrial cancer, secondary carcinoma of bone Musculoskeletal: as per Subjective / HPI Integumentary: as per Subjective / HPI Neurologic: as per Subjective / HPI Psychiatric: as per Subjective / HPI Endocrine: as per Subjective / HPI Hematologic / Lymphatic: as per Subjective / HPI Allergy / Immunological: as per Subjective / HPI Physical Exam Constitutional: WD/WN, vitals as above well developed and well nourished Eyes: PERRL, conjunctivae normal, anicteric sclerae ENMT: external ear and nose normal, oropharynx normal Neck: trachea midline, no thyromegaly Respiratory: normal respiratory effort, lungs clear to auscultation Cardiovascular: Rate/Rhythm: + irregularly irregular Gastrointestinal (Abdomen): normal bowel sounds, soft, nontender, no hepatosplenomegaly Percussion/Palpation: abdomen soft no significant tende rness at abdomen, no rebound pain, BS + no distend Musculoskeletal: no cyanosis or clubbing, extremities motor strength 5/5 Skin: no rashes, warm and dry Neurologic: awake Psychiatric: Orientation: alert and oriented x 3 Results & Data ([facility]) Vital Signs (Past 12 Hours) Vital Signs Temp Pulse Pulse Resp BP BP Pulse Ox 01/12/20 11:16 37 C 122 H 18 97/60 L 92 01/12/20 08:44 155 H 110/60 01/12/20 07:35 36.8 C 113 H 16 108/70 93 01/12/20 02:45 109 H 01/12/20 02:15 37.2 C 111 H 20 102/72 93 01/12/20 02:02 115 H 16 111/92 92 01/12/20 01:30 109 H 17 135/69 94 01/12/20 01:00 122 H 19 107/81 91 01/12/20 00:30 124 H 18 101/70 92 01/12/20 00:00 114 H 16 126/85 91 Laboratory Results Abnormal lab results 01/11/20 01/11/20 01/11/20 Range/Units 22:13 22:13 23:20 RBC (4.2-5.4) M/uL Hgb 10.5 L (12.0-16.0) g/dL Hct 33.5 L (37-47) % MCV 74.4 L (80-100) fL MCH 23.3 L (25-34) pg MCHC 31.3 L (32-36) g/dL RDW Std Deviation 48.9 H (36.4-46.3) fL RDW Coeff of Gretta 18.3 H (11.5-14.5) % Plt Count 506 H (130-400) K/uL Neut # (Auto) 7.48 H (1.4-6.5) K/uL Lymph # (Auto) 0.72 L (1.2-3.4) K/uL Yates # (Auto) 0.69 H (0.11-0.59) K/uL Immature Gran # (Auto) 0.04 H (0.00-0.02) K/uL PT (9.0-12.0) Seconds INR (0.9-1.1) Sodium 133 L (136-145) mmol/L Potassium (3.5-5.1) mmol/L Chloride 90 L (98-107) mmol/L BUN 32 H (7-18) mg/dl BUN/Creatinine Ratio 40.3 H (10-20) Glucose 142 H (70-99) mg/dl Magnesium 1.2 L (1.8-2.4) mg/dl Alkaline Phosphatase 143 H (45-117) U/L Ammonia (11-32) umol/L Albumin 2.7 L (3.4-5.0) gm/dl Globulin 4.4 H (2.5-4.0) gm/dl Albumin/Globulin Ratio 0.6 L (0.9-2) Lipase 51 L (73-393) U/L Urine Protein 1+ H (Negative) Urine Ketones 1+ H (Negative) Urine Bilirubin 1+ H (Negative) Ur Leukocyte Esterase Trace H (Negative) U Epithel Cells (Auto) 5-10 H (0-5) /lpf Gastric Occult Blood (Negative) 01/12/20 01/12/20 01/12/20 Range/Units 00:10 00:23 00:23 RBC (4.2-5.4) M/uL Hgb 10.4 L (12.0-16.0) g/dL Hct 33.3 L (37-47) % MCV (80-100) fL MCH (25-34) pg MCHC (32-36) g/dL RDW Std Deviation (36.4-46.3) fL RDW Coeff of Gretta (11.5-14.5) % Plt Count (130-400) K/uL Neut # (Auto) (1.4-6.5) K/uL Lymph # (Auto) (1.2-3.4) K/uL Yates # (Auto) (0.11-0.59) K/uL Immature Gran # (Auto) (0.00-0.02) K/uL PT 12.1 H (9.0-12.0) Seconds INR 1.2 H (0.9-1.1) Sodium (136-145) mmol/L Potassium (3.5-5.1) mmol/L Chloride (98-107) mmol/L BUN (7-18) mg/dl BUN/Creatinine Ratio (10-20) Glucose (70-99) mg/dl Magnesium (1.8-2.4) mg/dl Alkaline Phosphatase (45-117) U/L Ammonia (11-32) umol/L Albumin (3.4-5.0) gm/dl Globulin (2.5-4.0) gm/dl Albumin/Globulin Ratio (0.9-2) Lipase (73-393) U/L Urine Protein (Negative) Urine Ketones (Negative) Urine Bilirubin (Negative) Ur Leukocyte Esterase (Negative) U Epithel Cells (Auto) (0-5) /lpf Gastric Occult Blood Positive A (Negative) 01/12/20 01/12/20 01/12/20 Range/Units 00:23 07:19 07:19 RBC 4.06 L (4.2-5.4) M/uL Hgb 9.3 L (12.0-16.0) g/dL Hct 30.3 L (37-47) % MCV 74.6 L (80-100) fL MCH 22.9 L (25-34) pg MCHC 30.7 L (32-36) g/dL RDW Std Deviation 49.6 H (36.4-46.3) fL RDW Coeff of Gretta 18.3 H (11.5-14.5) % Plt Count (130-400) K/uL Neut # (Auto) (1.4-6.5) K/uL Lymph # (Auto) 0.80 L (1.2-3.4) K/uL Yates # (Auto) 0.63 H (0.11-0.59) K/uL Immature Gran # (Auto) 0.04 H (0.00-0.02) K/uL PT (9.0-12.0) Seconds INR (0.9-1.1) Sodium 131 L (136-145) mmol/L Potassium 3.4 L (3.5-5.1) mmol/L Chloride 92 L (98-107) mmol/L BUN 33 H (7-18) mg/dl BUN/Creatinine Ratio 41.7 H (10-20) Glucose 127 H (70-99) mg/dl Magnesium 2.8 H (1.8-2.4) mg/dl Alkaline Phosphatase (45-117) U/L Ammonia < 10.0 L (11-32) umol/L Albumin (3.4-5.0) gm/dl Globulin (2.5-4.0) gm/dl Albumin/Globulin Ratio (0.9-2) Lipase (73-393) U/L Urine Protein (Negative) Urine Ketones (Negative) Urine Bilirubin (Negative) Ur Leukocyte Esterase (Negative) U Epithel Cells (Auto) (0-5) /lpf Gastric Occult Blood (Negative) Diagnostic Findings CT OF THE ABDOMEN AND PELVIS WITHOUT CONTRAST CLINICAL HISTORY: Abdominal pain. Evaluate for small bowel obstruction. History of malignancy. COMPARISON STUDY: PET/CT November 09, 2019. TECHNIQUE: Axial images of the abdomen and pelvis were obtained without IV contrast. Images were reviewed in the axial, sagittal, and coronal planes. Automated exposure control was utilized for the study. A dose lowering technique was utilized adhering to the principles of ALARA. FINDINGS: Visualized portions of the lower chest demonstrate a large hiatal hernia. The stomach is fluid-filled and distended. There are trace bilateral pleural effusions. A few small lower lung pulmonary nodules measure up to 4 mm. These were not evident on PET/CT of November 09, 2019. No pneumatosis, free air or portal venous gas is present. Evaluation of the abdomen and pelvis is suboptimal on this unenhanced examination. Several hypodense hepatic lesions are noted. The largest is a 2.8 cm lateral segment hepatic lesion. These were not evident on the CT portion of the PET/CT of November 09, 2019. A gallstone is noted within the gallbladder. There is no pericholecystic infiltration. Mild gallbladder distention is unchanged. There is no biliary ductal dilatation. Unenhanced images of the spleen, adrenal glands and pancreas are unremarkable. Water attenuation bilateral renal lesions reflect cysts. There is extensive colonic diverticulosis without evidence for acute diverticulitis. Right inguinal hernia contains a loop of small bowel with a small amount of fluid. This does not appear to result in the bowel obstruction. The majority of the small bowel is dilated and fluid-filled. No definite transition point is identified however there is stool within small bowel within the right lower quadrant. These findings suggest a small small bowel dilatation. Mild mesenteric infiltration and trace ascites is noted. Numerous blastic metastases are similar to PET/CT of November 09, 2019. Several spine compression fractures may be pathologic. IMPRESSION: 1. Moderately dilated fluid-filled small bowel without definitive transition point however stool within the right lower quadrant small bowel loops. The findings represent a small bowel obstruction. Mild associated mesenteric infiltration and interloop fluid. Fluid-filled distended stomach with hiatal hernia. Nasogastric tube placement might be considered. 2. Interval development of several hypodense hepatic lesions consistent with metastases. A few small pulmonary nodules which were not present on prior PET/CT and are suspicious for metastases. 3. No significant change in blastic metastases. 4. Cholelithiasis. 5. Extensive colonic diverticulosis without evidence for acute diverticulitis.
[2020-01-12 12:37] LABS: Hematocrit (blood only) 26.8 % (37-47); Hemoglobin 8.5 g/dL (12.0-16.0)
--- NOTE | 2020-01-12 15:25 | Electrocardiogram Report ---
Test Reason : Blood Pressure : / mmHG Vent. Rate : 093 BPM Atrial Rate : 093 BPM P-R Int : 140 ms QRS Dur : 108 ms QT Int : 360 ms P-R-T Axes : 036 -61 098 degrees QTc Int : 447 ms Poor data quality, interpretation may be adversely affected Sinus rhythm with marked sinus arrhythmia Left anterior fascicular block Abnormal ECG When compared with ECG of 20-JUL-2013 15:17, Inverted T waves have replaced nonspecific T wave abnormality in Lateral leads Confirmed by Juaquin Marte ([id number]) on 01/12/2020 3:25:29 PM Referred By: REFERRED SELF Confirmed By:Juaquin Marte
[2020-01-12] MEDS ORDERED: Nursing to Pharmacy Communication SCH (15:30)
[2020-01-12] MEDS: AMIODARONE / D5W 360 MG/200 ML BAG IV SCH (16:22)
[2020-01-12 18:44] LABS: Hematocrit (blood only) 26.5 % (37-47); Hemoglobin 8.2 g/dL (12.0-16.0)
--- NOTE | 2020-01-12 19:28 | Cardiology Consultation ---
Date of Consultation January 12, 2020 Assessment & Plan (1) Atrial fibrillation with rapid ventricular response: (2) UGIB (upper gastrointestinal bleed): (3) SBO (small bowel obstruction): EKG performed this morning at 813 revealed atrial fibrillation with interventricular conduction delay, rapid ventricular response, 160 bpm. Compared to the prior tracing performed on 01/11/2028 2224, atrial fibrillation had replaced sinus rhythm with PACs. GI and general surgery input noted and appreciated. Currently it is felt that her presentation is perhaps suggestive of a small bowel obstruction rather than a cordell upper GI bleed. Given the coffee-ground emesis, and mild anemia, she is not a candidate for anticoagulation in terms of stroke prophylaxis at present. Atrial fibrillation with rapid ventricular response of 240 bpm had been present, IV amiodarone was initiated earlier today, and her rates are down to 100 to 110 bpm at present while she is resting. Her most recent blood pressure of 81/51 precludes the use of other medications such as metoprolol and diltiazem. Echocardiogram reveals normal left atrial chamber size, hyperdynamic left ventricular systolic function. At present, I recommend ongoing IV fluid resuscitation, amiodarone. She is receiving electrolyte replacement intravenously. History of Present Illness Attending Physician: Victor Manuel Cowan MD History of Present Illness Shila Boucher is and 79 year old female seen in cardiology consultation per the request of Dr Cowan for the evaluation of atrial fibrillation with rapid ventricular rate. Beto Garg tells me he has a cat has made thanks bety patient admitted via the emergency room overnight last night with abdominal pain, bilious emesis and constipation. She has developed coffee-ground emesis. Currently she is being treated for gastrointestinal bleed, and nasogastric tube is in place with coffee-ground colored drainage. The patient is lying supine, and states that she is comfortable. She denies ever having had atrial fibrillation before. She denies subjective palpitations or chest discomfort. 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 Allergies Allergy/AdvReac Type Severity Reaction Status Date / Time azithromycin Allergy Severe Hives Verified 01/12/20 00:38 mold Allergy Unknown SHORTNESS Verified 01/12/20 00:38 OF BREATH Home Medications Medication Instructions Recorded Confirmed Type metformin 850 mg tablet 850 mg PO BIDM 09/22/18 01/12/20 History cholecalciferol (vitamin D3) 25 1,000 units PO BID cap 04/20/19 01/12/20 History mcg (1,000 unit) capsule ondansetron 8 mg disintegrating 8 mg PO TID PRN tab 04/20/19 01/12/20 History tablet prochlorperazine maleate 10 mg 10 mg PO Q6H PRN tab 04/20/19 01/12/20 History tablet prednisone 10 mg tablet 10 mg PO DAILY #90 tab 11/14/19 01/12/20 Rx oxycodone 5 mg capsule 10 mg PO Q6H PRN 11/18/19 01/12/20 History albuterol sulfate 2 puff INHALATION Q4 PRN 01/12/20 01/12/20 History oxycodone [OxyContin] 20 mg PO Q12 01/12/20 01/12/20 History Patient History Medical History Colitis COPD (chronic obstructive pulmonary disease) Endometrial cancer H/O chronic ulcerative colitis Left hip pain left hip / Core Needle BX Surgical History H/O elbow surgery Right elbow , surgery many yrs ago S/P KAREEN-BSO surgery 3 - 4 yrs ago Family History Mother , age 49 Heart disease enlarged heart Father , age 75 Stroke Brother , age 84 Prostate cancer Other No pertinent family history Social History Smoking Status: Never smoker Second Hand Exposure: No; Hx Alcohol Use: No Hx Substance Use: No Preferred Language: Chilean Communication Ability: Effective Visual Impairment: No Limitations Hearing Ability: Normal Sketch Artist Required: No Beliefs That Will Affect Care: None marital status: Current Living Situation: Spouse Current Living Situation Comment: lives with who is a stroke victim / she takes care of him current occupational status: retired 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 How many Children do You have: 4 Feels Safe at Home: Yes Childhood Exposure to Second-Hand Smoke: Yes Assistive Devices: Glasses and Walker Physical Exam Physical Exam: Temp Pulse Resp BP Pulse Ox 36.7 C 113 H 16 81/51 L 96 01/12/20 19:16 01/12/20 19:16 01/12/20 19:16 01/12/20 19:16 01/12/20 19:16 Constitutional: No acute distress, frail in appearance Respiratory: normal respiratory effort, lungs clear to auscultation Cardiovascular: Rate/Rhythm: + tachycardic and + irregularly irregular Vessels: no JVD Extremities: no edema Gastrointestinal (Abdomen): Abdomen nontender Neurologic: Follows commands, moves all 4 extremities Results & Data ([facility]) Vital Signs (Past 12 Hours) Vital Signs Temp Pulse Pulse Pulse Resp BP BP 01/12/20 19:16 36.7 C 113 H 16 81/51 L 01/12/20 16:16 96/62 L 01/12/20 16:13 36.9 C 108 H 19 96/62 L 01/12/20 13:44 94/60 L 01/12/20 12:23 126 H 88/56 L 01/12/20 11:16 37 C 122 H 18 97/60 L 01/12/20 08:44 155 H 110/60 01/12/20 07:35 36.8 C 113 H 16 108/70 Pulse Ox 01/12/20 19:16 96 01/12/20 16:16 01/12/20 16:13 98 01/12/20 13:44 01/12/20 12:23 96 01/12/20 11:16 92 01/12/20 08:44 01/12/20 07:35 93 Laboratory Results Cardiac Enzymes 01/11/20 Range/Units 22:13 AST 20 (15-37) U/L Coagulation 01/12/20 Range/Units 00:23 PT 12.1 H (9.0-12.0) Seconds CBC 01/11/20 01/12/20 01/12/20 Range/Units 22:13 00:23 07:19 WBC 8.93 7.09 (4.8-10.8) K/uL RBC 4.50 4.06 L (4.2-5.4) M/uL Hgb 10.5 L 10.4 L 9.3 L (12.0-16.0) g/dL Hct 33.5 L 33.3 L 30.3 L (37-47) % Plt Count 506 H 394 (130-400) K/uL Neut # (Auto) 7.48 H 5.60 (1.4-6.5) K/uL Lymph # (Auto) 0.72 L 0.80 L (1.2-3.4) K/uL Dubois # (Auto) 0.69 H 0.63 H (0.11-0.59) K/uL Eos # (Auto) 0.00 0.02 (0-0.5) K/uL Baso # (Auto) 0.00 0.00 (0-0.2) K/uL 01/12/20 01/12/20 Range/Units 12:09 18:28 WBC (4.8-10.8) K/uL RBC (4.2-5.4) M/uL Hgb 8.5 L 8.2 L (12.0-16.0) g/dL Hct 26.8 L 26.5 L (37-47) % Plt Count (130-400) K/uL Neut # (Auto) (1.4-6.5) K/uL Lymph # (Auto) (1.2-3.4) K/uL Dubois # (Auto) (0.11-0.59) K/uL Eos # (Auto) (0-0.5) K/uL Baso # (Auto) (0-0.2) K/uL Comprehensive Metabolic Panel 01/11/20 01/12/20 Range/Units 22:13 07:19 Sodium 133 L 131 L (136-145) mmol/L Potassium 3.7 3.4 L (3.5-5.1) mmol/L Chloride 90 L 92 L (98-107) mmol/L Carbon Dioxide 32 32 (21-32) mmol/L BUN 32 H 33 H (7-18) mg/dl Creatinine 0.80 0.79 (0.6-1.2) mg/dl Glucose 142 H 127 H (70-99) mg/dl Calcium 9.2 8.7 (8.5-10.1) mg/dl AST 20 (15-37) U/L ALT 25 (12-78) U/L Alkaline Phosphatase 143 H (45-117) U/L Total Protein 7.1 (6.4-8.2) gm/dl Albumin 2.7 L (3.4-5.0) gm/dl Intake and Output 01/12/20 01/12/20 01/12/20 06:59 14:59 22:59 Intake Total 840.833 / 233.001 4922.833 / 1555.833 200 / 1555.833 Output Total 1300 / 1300 Balance -459.167 / -783.372 6992.833 / 1555.833 200 / 1555.833 Intake: IV 840.833 / 599.715 0828.833 / 1555.833 200 / 1555.833 NEXTERONE / D5W 150 mg In 100 100 / 100 ml @ 600 mls/hr IV 1015 ONE Rx# :[id number] NEXTERONE / D5W 360 mg In 200 200 / 200 ml @ 33.333 mls/hr IV ONE ONE Rx#:[id number] Lr 1,000 ml @ 50 mls/hr IV . 352.5 / 352.5 Q20H REESE Rx#:[id number] MAGNESIUM SULFATE / D5W 1 gm In 240.833 / 240.833 100 / 100 100 ml @ 50 mls/hr IV Q2H REESE Rx#:[id number] Protonix 80 mg In D5 100 ml @ 100 / 100 400 mls/hr IV ONE STA Rx#: [id number] K RIDER / WTR 10 meq In 100 ml 303.333 / 303.333 @ 100 mls/hr IV Q1H REESE Rx#: [id number] Nss 1000ML 500 ml @ 999 mls/hr 500 / 500 IV .Q31M ONE Rx#:[id number] Nss 500 ml @ 500 mls/hr IV .Q1H 500 / 500 ONE Rx#:[id number] Output: Gastric Drainage 1300 / 1300 Right Nare 1300 / 1300 Other: Other Intake Source NPO NPO Weight 60.2 kg Weight Measurement Method Built in [facility]
[2020-01-12] MEDS: D5NSS + 20MEQ KCL 20 MEQ/1,000 ML BAG IV SCH (21:52)
[2020-01-13] MEDS: AMIODARONE / D5W 360 MG/200 ML BAG IV SCH ×2 (03:25→14:29)
--- NOTE | 2020-01-13 05:33 | Electrocardiogram Report ---
Test Reason : Blood Pressure : / mmHG Vent. Rate : 160 BPM Atrial Rate : 000 BPM P-R Int : 000 ms QRS Dur : 114 ms QT Int : 316 ms P-R-T Axes : 000 -35 114 degrees QTc Int : 515 ms Atrial fibrillation with rapid ventricular response Left axis deviation Moderate voltage criteria for LVH, may be normal variant Abnormal ECG When compared with ECG of 11-JAN-2020 22:24, Atrial fibrillation has replaced Sinus rhythm Vent. rate has increased BY 67 BPM Confirmed by Juaquin Marte ([id number]) on 01/13/2020 5:32:51 AM Referred By: REFERRED SELF Confirmed By:Juaquin Marte
[2020-01-13] MEDS: METHYLPREDNISOLONE IV SCH (07:58)
[2020-01-13] MEDS: PANTOprazole 40 MG in SYRINGE 0 ML IV SCH ×2 (07:58→20:04)
[2020-01-13 08:31] LABS: Eosinophils # (auto) 0.01 K/uL (0-0.5); Eosinophils % (auto) 0.2 %; Hematocrit (blood only) 27.1 % (37-47); Hemoglobin 8.5 g/dL (12.0-16.0); Immature Granulocytes # (auto) 0.03 K/uL (0.00-0.02); Immature Granulocytes % (auto) 0.5 %; Lymphocytes # (auto) 0.82 K/uL (1.2-3.4); Lymphocytes % (auto) 14.3 %; Mean Corpuscular Hemoglobin 23.3 pg (25-34); Mean Corpuscular Hgb Conc 31.4 g/dL (32-36); Mean Corpuscular Volume 74.2 fL (80-100); Mean Platelet Volume 8.2 fL (7.4-10.4); Monocytes # (auto) 0.54 K/uL (0.11-0.59); Monocytes % (auto) 9.4 %; Neutrophils # (auto) 4.34 K/uL (1.4-6.5); Neutrophils % (auto) 75.6 %; Platelet Count 296 K/uL (130-400); RDW Coefficient of Variation 18.3 % (11.5-14.5); RDW Standard Deviation 49.7 fL (36.4-46.3); Red Blood Count 3.65 M/uL (4.2-5.4); White Blood Count 5.74 K/uL (4.8-10.8)
[2020-01-13 09:05] LABS: BUN Creatinine Ratio 35.7 (10-20); Calcium 8.2 mg/dl (8.5-10.1); Creatinine Clr Calc Pharmacy 63.9 ml/min; Est GFR (Non-African American) 84.6; Magnesium 1.9 mg/dl (1.8-2.4); Potassium 3.5 mmol/L (3.5-5.1)
--- NOTE | 2020-01-13 10:12 | XRay Report ---
KUB HISTORY: Small bowel obstruction. Follow-up. COMPARISON: Abdomen and pelvis CT 01/11/2020. FINDINGS: Multiple dilated gas-filled loops of small bowel are seen throughout the abdomen consistent with a small bowel obstruction. This is not significantly changed. Nasogastric tube terminates in th e large hiatus hernia. The tip is likely just beyond the diaphragmatic hiatus. Large gallstone is pre sent. Surgical clips within the deep pelvis. 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 No renal calculi. No ureteral calculi. No pneumoperitoneum or pneumatosis. IMPRESSION: 1. No significant change in the small bowel obstruction. 2. Nasogastric tube terminates in the large hiatus hernia with the tip just beyond the level of the d iaphragmatic hiatus. Therefore, this is in good position. 3. Cholelithiasis. ACT 112: Negative or not required by law. Electronically signed by: Beto Davenport M.D. 01/13/2020 10:11 AM
--- NOTE | 2020-01-13 10:27 | Cardiology Progress Note ---
Date of Service January 13, 2020 Assessment & Plan (1) Atrial fibrillation with rapid ventricular response: Persistent afib noted. Ventricular rates improved on IV amiodarone. Currently ranging 100-110 bpm. Will continue amiodarone Due to borderline hypotension, she will likely not tolerate metoprolol or diltiazem. Echo reveals normal LV systolic function and normal left atrial size. Hopeful she will convert to NSR No anticoagulation at this time due to UGIB. Per review of outpatient records, patient follows closely with [facility] and palliative care. no cardiovascular history. Case discussed with Dr. Esquivel. (2) UGIB (upper gastrointestinal bleed): (3) SBO (small bowel obstruction): . Admission and Anticipated Discharge Date Admission Date: January 12, 2020 Supervising Physician Co-Signing Physician Notes Supervising Physician Attestation: I have personally performed a history and physical examination on the patient. I agree with the physician assistant professor of chemistry's findings and plan as documented with the following additions. Subjective: Patient resting comfortably Exam: Heart rates down to the 60s to 70s Assessment and Plan: Atrial fibrillation, with rapid ventricular response, earlier this morning her ventricular rates trended down from 110 bpm to the 60s to 70s, heart R interval appears regular on telemetry, but it is difficult to discern P waves. Update EKG in terms of assessing for sinus rhythm. Given the relative low blood pressure, and inability to take oral medications at present given small bowel obstruction, continue IV amiodarone. As noted, not a candidate for stroke prophylaxis. DVT prophylaxis: SCDs ordered for DVT prophylaxis, if hemoglobin remains stable, would have low threshold for starting cautious Lovenox given VTE risk, stasis, underlying cancer. Eric Esquivel, DO Subjective Patient resting comfortably in bed. NG tube in place. Full Review of systems not able to be performed but was able to nod her head to yes or no questions. She denies chest pain, SOB, palpitations or dizziness. She reported abdominal pain but better than admission. Telemetry reviewed - Persistent afib, rates trending down overnight. Currently 100-110 bpm Review of Systems Review of Systems: Other (unobtainable due to NG tube in place, difficult to speak) Physical Exam Constitutional: WD/WN, vitals as above + ill appearing; no acute distress Respiratory: normal respiratory effort, lungs clear to auscultation Cardiovascular: Rate/Rhythm: + tachycardic and + irregularly irregular Heart Sounds: no murmur Vessels: no JVD Extremities: no edema Gastrointestinal (Abdomen): Inspection/Auscultation: + abdomen distended and + hypoactive bowel sounds Percussion/Palpation: + abdomen tender (diffuse) Neurologic: PERRL, EOMI, accommodation nl, no face palsy, no dysarthria Psychiatric: A+Ox3, euthymic affect Results & Data ([facility]) Vital Signs (Past 12 Hours) Vital Signs Temp Pulse Resp BP BP Pulse Ox 01/13/20 07:48 37.0 C 75 19 93/64 L 91 01/13/20 04:06 36.9 C 72 18 100/64 96 01/12/20 23:41 37.1 C 121 H 20 99/65 L 93
--- NOTE | 2020-01-13 10:45 | Electrocardiogram Report ---
Test Reason : Blood Pressure : / mmHG Vent. Rate : 106 BPM Atrial Rate : 000 BPM P-R Int : 000 ms QRS Dur : 114 ms QT Int : 376 ms P-R-T Axes : 000 -43 104 degrees QTc Int : 499 ms Atrial fibrillation with rapid ventricular response Left axis deviation Incomplete left bundle block Nonspecific ST and T wave abnormality Abnormal ECG When compared with ECG of 12-JAN-2020 08:13, Vent. rate has decreased BY 54 BPM Incomplete left bundle block is now Present Confirmed by Jed Guillen ([id number]) on 01/13/2020 10:45:41 AM Referred By: REFERRED SELF Confirmed By:Jed Guillen
--- NOTE | 2020-01-13 12:10 | Surgery Progress Note ---
Date of Service pt said she feels better today, no abdominal pain, NG tube 4900ml, bloody color, no BM yet, VVS, January 13, 2020 Assessment & Plan (1) SBO (small bowel obstruction): pt is 79 year-old female who was admitted to hospital for SBO, pt has not passed BM 2 days, no vomiting, IMP: SBO Plan, conservation treatment , no emergent surgery indication now, IV fluid, NPO, NG tube, repeat labs in am, will F/U 01/13/2020 12:10 PM F/U SBO, pt feels better, KUB- SBO, no BM yet, NG tube out put 490ml, continue conservative treatment, vascular sonographer surgeon cover this weekend, thanks, Admission and Anticipated Discharge Date Admission Date: January 12, 2020 Subjective Patient resting comfortably in bed. NG tube in place. Full Review of systems not able to be performed but was able to nod her head to yes or no questions. She denies chest pain, SOB, palpitations or dizziness. She reported abdominal pain but better than admission. Telemetry reviewed - Persistent afib, rates trending down overnight. Currently 100-110 bpm Physical Exam Constitutional: WD/WN, vitals as above well developed and well nourished Eyes: PERRL, conjunctivae normal, anicteric sclerae ENMT: external ear and nose normal, oropharynx normal Neck: trachea midline, no thyromegaly Respiratory: normal respiratory effort, lungs clear to auscultation Cardiovascular: Rate/Rhythm: + irregularly irregular Gastrointestinal (Abdomen): normal bowel sounds, soft, nontender, no hepatosplenomegaly Percussion/Palpation: abdomen soft Musculoskeletal: no cyanosis or clubbing, extremities motor strength 5/5 Skin: no rashes, warm and dry Neurologic: awake Psychiatric: Orientation: alert and oriented x 3 Results & Data ([facility]) Vital Signs (Past 12 Hours) Vital Signs Temp Pulse Pulse Resp BP Pulse Ox 01/13/20 11:07 36.7 C 77 18 95/57 L 95 01/13/20 10:38 72 01/13/20 07:48 37.0 C 75 19 93/64 L 91 01/13/20 04:06 36.9 C 72 18 100/64 96 Laboratory Results Abnormal lab results 11/19/20 11/19/20 11/19/20 Range/Units 11:57 12:09 16:29 RBC (4.2-5.4) M/uL Hgb 8.5 L (12.0-16.0) g/dL Hct 26.8 L (37-47) % MCV (80-100) fL MCH (25-34) pg MCHC (32-36) g/dL RDW Std Deviation (36.4-46.3) fL RDW Coeff of Gretta (11.5-14.5) % Lymph # (Auto) (1.2-3.4) K/uL Immature Gran # (Auto) (0.00-0.02) K/uL BUN (7-18) mg/dl BUN/Creatinine Ratio (10-20) Glucose (70-99) mg/dl POC Glucose 147 H 161 H (70-99) mg/dl Calcium (8.5-10.1) mg/dl 01/12/20 01/13/20 01/13/20 Range/Units 18:28 08:23 08:23 RBC 3.65 L (4.2-5.4) M/uL Hgb 8.2 L 8.5 L (12.0-16.0) g/dL Hct 26.5 L 27.1 L (37-47) % MCV 74.2 L (80-100) fL MCH 23.3 L (25-34) pg MCHC 31.4 L (32-36) g/dL RDW Std Deviation 49.7 H (36.4-46.3) fL RDW Coeff of Gretta 18.3 H (11.5-14.5) % Lymph # (Auto) 0.82 L (1.2-3.4) K/uL Immature Gran # (Auto) 0.03 H (0.00-0.02) K/uL BUN 22 H (7-18) mg/dl BUN/Creatinine Ratio 35.7 H (10-20) Glucose 118 H (70-99) mg/dl POC Glucose (70-99) mg/dl Calcium 8.2 L (8.5-10.1) mg/dl KUB HISTORY: Small bowel obstruction. Follow-up. COMPARISON: Abdomen and pelvis CT 01/11/2020. FINDINGS: Multiple dilated gas-filled loops of small bowel are seen throughout the abdomen consistent with a small bowel obstruction. This is not significantly changed. Nasogastric tube terminates in the large hiatus hernia. The tip is likely just beyond the diaphragmatic hiatus. Large gallstone is present. Surgical clips within the deep pelvis. 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 No renal calculi. No ureteral calculi. No pneumoperitoneum or pneumatosis. IMPRESSION: 1. No significant change in the small bowel obstruction. 2. Nasogastric tube terminates in the large hiatus hernia with the tip just beyond the level of the diaphragmatic hiatus. Therefore, this is in good position. 3. Cholelithiasis.
[2020-01-13] MEDS: D5NSS + 20MEQ KCL 20 MEQ/1,000 ML BAG IV SCH (13:32)
--- NOTE | 2020-01-13 18:58 | Hospitalist Progress Note ---
Date of Service January 13, 2020 Assessment & Plan (1) SBO (small bowel obstruction): 79 year old female with history of COPD/Asthma, Bronchiectasis on Chronic Prednisone, Endometrial CA with Bone Mets s/p Chemo/Radiation/Surgery, and other problems noted below presenting with abdominal pain, coffee ground emesis. SMALL BOWEL OBSTRUCTION LIKELY FROM ADHESIONS, OXYCONTIN CT abd/pelv: 1. Moderately dilated fluid-filled small bowel without definitive transition point however stool within the right lower quadrant small bowel loops. The findings represent a small bowel obstruction. Mild associated mesenteric infiltration and interloop fluid. Fluid-filled distended stomach with hiatal h ernia. Nasogastric tube placement might be considered. 2. Interval development of several hypodense hepatic lesions consistent with metastases. A few small pulmonary nodules which were not present on prior PET/CT and are suspicious for metastases. 3. No significant change in blastic metastases. 4. Cholelithiasis. 5. Extensive colonic diverticulosis without evidence for acute diverticulitis. -- NG tube in place draining bilious output -1.7 cc so far -- NPO, D5NSS + K replace K+ -- convert meds to IV -- General Surgery consulted: Continue conservative management for now Monitor very closely POSSIBLE UPPER GI BLEED risk factor: chronic Prednisone use Hg at baseline Protonix IV BID GI consulted: EGD not recommended at this point unless with significant decrease in hemoglobin Monitor closely ATRIAL FIBRILLATION in RVR, NEW ONSET likely from underlying SBO, GI bleed given Metoprolol 5mg IV one dose, HR improved from 160s to 110s, BP 108/60 Neurologist consulted Placed currently on amiodarone, heart rate under control Anticoagulation indicated secondary to possible GI bleed ENDOMETRIAL CA WITH BONE METS- PELVIS CT abd/pelvis showing new Liver mets and Pulm nodules per last ff up with Oncologist Dr. Garcia last month, family deciding on possible resumption of chemotherapy and initiation of palliative radiation therapy COPD/ASTHMA/BRONCHIECTASIS on chronic Prednisone 10mg po daily changed to Solumedrol 10mg IV daily DVT prophylaxis SCDs only in light of possible GI Bleed Disposition pending Plan of care discussed with patient's son over the phone All questions were answered She is understanding, agreeable, comfortable with the plan of care Admission and Anticipated Discharge Date Admission Date: January 12, 2020 Subjective Follow-up for small bowel obstruction, atrial fibrillation Seen resting in bed, comfortable, sleeping but easily awakened Not in distress, answers most questions appropriately States she feels fine overall No abdominal pain, no nausea or vomiting, no fevers or chills No flatus or bowel movements yet No chest pain, palpitations, dizziness, shortness of breath Review of Systems Review of Systems: All systems reviewed & are unremarkable except as noted in Subjective Physical Exam Physical Exam: General- oriented x2, not in distress, speaks in sentences with no effort or accessory muscle use Eyes- anicteric Neck- no JVD Lungs- clear breath sounds bilaterally, no rales/wheezes Heart- normal rate, irregularly irregular rhythm; no murmurs Abdomen- normal bowel sounds, nondistended, soft, nontender Extremities- no pretibial edema, no calf tenderness Neuro- alert, oriented x 3; no gross focal neurologic deficits Skin- warm & dry Results & Data Results & Data ([facility]) Vital Signs (Past 12 Hours) Vital Signs Temp Pulse Pulse Resp BP Pulse Ox 01/13/20 15:36 36.4 C L 72 18 103/66 91 01/13/20 11:07 36.7 C 77 18 95/57 L 95 01/13/20 10:38 72 01/13/20 07:48 37.0 C 75 19 93/64 L 91 Laboratory Results Laboratory Results - last 24 hr 01/13/20 01/13/20 08:23 08:23 WBC 5.74 RBC 3.65 L Hgb 8.5 L Hct 27.1 L MCV 74.2 L MCH 23.3 L MCHC 31.4 L RDW Std Deviation 49.7 H RDW Coeff of Gretta 18.3 H Plt Count 296 MPV 8.2 Immature Gran % (Auto) 0.5 Neut % (Auto) 75.6 Lymph % (Auto) 14.3 [place] % (Auto) 9.4 Eos % (Auto) 0.2 Baso % (Auto) 0.0 Neut # (Auto) 4.34 Lymph # (Auto) 0.82 L [place] # (Auto) 0.54 Eos # (Auto) 0.01 Baso # (Auto) 0.00 Immature Gran # (Auto) 0.03 H Sodium 136 Potassium 3.5 Chloride 101 Carbon Dioxide 30 Anion Gap 5.0 BUN 22 H Creatinine 0.62 Est Cr Clr Drug Dosing 63.9 Est GFR ( Amer) 98.0 Est GFR (Non-Af Amer) 84.6 BUN/Creatinine Ratio 35.7 H Glucose 118 H Calcium 8.2 L Magnesium 1.9
--- NOTE | 2020-01-14 02:32 | Communication Note ---
Date of Service: January 14, 2020 Made aware by RN of Gonsalo barnes conversion to normal sinus rhythm. Episodic cardiac rate of 40s as per RN. AP PAF Hold amiodarone for now. Will relay to AM provider.
[2020-01-14] MEDS ORDERED: MAGNESIUM SULFATE / D5W 1 GM/100 ML BAG IV ONE (02:45)
[2020-01-14] MEDS: POTASSIUM CHLORIDE / WTR 10 MEQ/100 ML PLCT IV SCH ×4 (03:38→06:48)
[2020-01-14] MEDS: D5NSS + 20MEQ KCL 20 MEQ/1,000 ML BAG IV SCH ×2 (05:29→21:40)
[2020-01-14 07:56] LABS: Eosinophils # (auto) 0.03 K/uL (0-0.5); Eosinophils % (auto) 0.4 %; Hematocrit (blood only) 26.5 % (37-47); Hemoglobin 8.4 g/dL (12.0-16.0); Immature Granulocytes # (auto) 0.04 K/uL (0.00-0.02); Immature Granulocytes % (auto) 0.6 %; Lymphocytes % (auto) 11.4 %; Mean Corpuscular Hemoglobin 23.7 pg (25-34); Mean Corpuscular Hgb Conc 31.7 g/dL (32-36); Mean Corpuscular Volume 74.6 fL (80-100); Mean Platelet Volume 8.5 fL (7.4-10.4); Monocytes # (auto) 0.54 K/uL (0.11-0.59); Monocytes % (auto) 7.7 %; Neutrophils # (auto) 5.61 K/uL (1.4-6.5); Neutrophils % (auto) 79.9 %; Platelet Count 280 K/uL (130-400); RDW Coefficient of Variation 18.4 % (11.5-14.5); RDW Standard Deviation 50.3 fL (36.4-46.3); Red Blood Count 3.55 M/uL (4.2-5.4); White Blood Count 7.02 K/uL (4.8-10.8)
[2020-01-14] MEDS: METHYLPREDNISOLONE IV SCH (08:17)
[2020-01-14] MEDS: PANTOprazole 40 MG in SYRINGE 0 ML IV SCH ×2 (08:17→20:06)
[2020-01-14 08:29] LABS: BUN Creatinine Ratio 34.1 (10-20); Calcium 8.6 mg/dl (8.5-10.1); Creatinine Clr Calc Pharmacy 65.2 ml/min; Est GFR (African American) 101.3; Est GFR (Non-African American) 87.4; Magnesium 1.7 mg/dl (1.8-2.4)
--- NOTE | 2020-01-14 08:53 | Surgery Progress Note ---
Date of Service January 14, 2020 Assessment & Plan (1) SBO (small bowel obstruction): +BM NGT clamping trial May remove later today No plans for surgical intervention Admission and Anticipated Discharge Date Admission Date: January 12, 2020 Subjective Pt seen and examined. Feeling better without abdominal pain. Had BM per nursing. NGT with lower output. NO N/V. Physical Exam Constitutional: WD/WN, vitals as above well developed and well nourished Eyes: PERRL, conjunctivae normal, anicteric sclerae ENMT: external ear and nose normal, oropharynx normal Neck: trachea midline, no thyromegaly Respiratory: normal respiratory effort, lungs clear to auscultation Cardiovascular: Rate/Rhythm: + irregularly irregular Gastrointestinal (Abdomen): normal bowel sounds, soft, nontender, no hepatosplenomegaly Percussion/Palpation: abdomen soft Musculoskeletal: no cyanosis or clubbing, extremities motor strength 5/5 Skin: no rashes, warm and dry Neurologic: awake Psychiatric: Orientation: alert and oriented x 3 Results & Data ([facility]) Vital Signs (Past 12 Hours) Vital Signs Temp Pulse Pulse Resp BP Pulse Ox 01/14/20 08:09 36.9 C 77 18 106/68 93 01/14/20 03:11 37.2 C 74 18 103/64 92 01/13/20 23:19 37.1 C 78 18 103/62 91 PG Care Time/CCT Total # of Minutes Spent Total Time Spent with Patient: Total time spent is greater than 50% in coordination of care (as documented) at patient's floor/unit and/or counseling patient: Coding Level of Care Code 84576 Subseq Hosp Care Lvl 1 Diagnoses SBO (small bowel obstruction) K56.609
[2020-01-14] MEDS: MAGNESIUM SULFATE / D5W 1 GM/100 ML BAG IV SCH ×2 (11:18→13:01)
--- NOTE | 2020-01-14 12:38 | Cardiology Progress Note ---
Date of Service January 14, 2020 Assessment & Plan (1) SBO (small bowel obstruction): (2) Atrial fibrillation with rapid ventricular response: (3) Endometrial cancer: Surgery input noted and appreciated. I think she will feel more comfortable once the nasogastric tube is removed. Ongoing anemia, hemoglobin 8.4 today, microcytic. EKG performed per my request yesterday at 1424 documents patient had reverted to sinus rhythm. Amiodarone infusion had been continued for rhythm control strategy. She remained in sinus rhythm overnight last night, while on amiodarone infusion, and was bradycardic down to the 40s, prompting discontinuation of IV amiodarone which I think is reasonable. Magnesium was 1.7 today and for placement has already been ordered by the primary team. She remains n.p.o. from a medication standpoint, I think it is reasonable to observe her, and if she has recurrence of atrial fibrillation , can administer low-dose IV metoprolol, or reinitiate IV amiodarone as needed. Given concerns of heme positive gastric output and anemia she is not a candidate for systemic anticoagulation. She has been followed as an outpatient by palliative care for her metastatic endometrial carcinoma. DVT prophylaxis: Continue SCDs. Admission and Anticipated Discharge Date Admission Date: January 12, 2020 Subjective Patient seen in cardiology follow-up. She is lying supine and is comfortable. Physical Exam Physical Exam: Temp Pulse Resp BP Pulse Ox 36.9 C 78 18 111/68 92 01/14/20 11:50 01/14/20 11:50 01/14/20 11:50 01/14/20 11:50 01/14/20 11:50 Constitutional: WD/WN, vitals as above Respiratory: normal respiratory effort, lungs clear to auscultation Gastrointestinal (Abdomen): Nontender to palpitation Nasogastric tube in place Neurologic: No focal deficits Results & Data ([facility]) Vital Signs (Past 12 Hours) Vital Signs Temp Pulse Pulse Pulse Resp BP Pulse Ox 01/14/20 11:50 36.9 C 78 18 111/68 92 01/14/20 08:09 36.9 C 77 18 106/68 93 01/14/20 08:00 72 01/14/20 03:11 37.2 C 74 18 103/64 92 Laboratory Results CBC 01/14/20 Range/Units 07:35 WBC 7.02 (4.8-10.8) K/uL RBC 3.55 L (4.2-5.4) M/uL Hgb 8.4 L (12.0-16.0) g/dL Hct 26.5 L (37-47) % Plt Count 280 (130-400) K/uL Neut # (Auto) 5.61 (1.4-6.5) K/uL Lymph # (Auto) 0.80 L (1.2-3.4) K/uL [place] # (Auto) 0.54 (0.11-0.59) K/uL Eos # (Auto) 0.03 (0-0.5) K/uL Baso # (Auto) 0.00 (0-0.2) K/uL Comprehensive Metabolic Panel 01/14/20 Range/Units 07:35 Sodium 136 (136-145) mmol/L Potassium 4.0 (3.5-5.1) mmol/L Chloride 104 (98-107) mmol/L Carbon Dioxide 28 (21-32) mmol/L BUN 19 H (7-18) mg/dl Creatinine 0.56 L (0.6-1.2) mg/dl Glucose 98 (70-99) mg/dl Calcium 8.6 (8.5-10.1) mg/dl Intake and Output 01/13/20 01/14/20 01/14/20 22:59 06:59 14:59 Intake Total 1342.000 / 2466.813 Output Total 400 / 625 0 / 625 Balance -400 / 1303.675 6112.000 / 1841.813 Intake: IV 1342.000 / 2466.813 D5NSS + 20MEQ KCL 20 meq In 1, 957 / 1897 000 ml @ 60 mls/hr IV .[id number] REESE Rx#:[id number] MAGNESIUM SULFATE / D5W 1 gm In 100 / 100 100 ml @ 50 mls/hr IV ONE ONE Rx#:[id number] K RIDER / WTR 10 meq In 100 ml 285.000 / 285.000 @ 100 mls/hr IV Q1H REESE Rx#: [id number] Output: Gastric Drainage 400 / 625 0 / 625 Right Nare 400 / 625 0 / 625 Other: Other Intake Source NPO # Unmeasured Voids 1 Weight 62 kg Weight Measurement Method Built in Bedscale
--- NOTE | 2020-01-14 17:22 | Hospitalist Progress Note ---
Date of Service January 14, 2020 Assessment & Plan (1) SBO (small bowel obstruction): 79 year old female with history of COPD/Asthma, Bronchiectasis on Chronic Prednisone, Endometrial CA with Bone Mets s/p Chemo/Radiation/Surgery, and other problems noted below presenting with abdominal pain, coffee ground emesis. SMALL BOWEL OBSTRUCTION LIKELY FROM ADHESIONS, OXYCONTIN CT abd/pelv: 1. Moderately dilated fluid-filled small bowel without definitive transition point however stool within the right lower quadrant small bowel loops. The findings represent a small bowel obstruction. Mild associated mesenteric infiltration and interloop fluid. Fluid-filled distended stomach with hiatal h ernia. Nasogastric tube placement might be considered. 2. Interval development of several hypodense hepatic lesions consistent with metastases. A few small pulmonary nodules which were not present on prior PET/CT and are suspicious for metastases. 3. No significant change in blastic metastases. 4. Cholelithiasis. 5. Extensive colonic diverticulosis without evidence for acute diverticulitis. -- NG tube in place draining bilious output -- Positive BM --NG tube clamped, if with no significant residuals, will advance her to clear liquids tonight per general surgery --Continue to monitor POSSIBLE UPPER GI BLEED risk factor: chronic Prednisone use Hg remains at 8.4 Protonix IV BID GI consulted: EGD not recommended at this point unless with significant decrease in hemoglobin Monitor closely ATRIAL FIBRILLATION in RVR, NEW ONSET likely from underlying SBO, GI bleed given Metoprolol 5mg IV one dose, HR improved from 160s to 110s, BP 108/60 Rubber Roller Grinder Operator consulted Placed on amiodarone Converted to sinus rhythm morning of 01/14/2020 Amiodarone discontinued Anticoagulation indicated secondary to possible GI bleed ENDOMETRIAL CA WITH BONE METS- PELVIS CT abd/pelvis showing new Liver mets and Pulm nodules per last ff up with Oncologist Dr. Garcia last month, family deciding on possible resumption of chemotherapy and initiation of palliative radiation therapy COPD/ASTHMA/BRONCHIECTASIS on chronic Prednisone 10mg po daily changed to Solumedrol 10mg IV daily DVT prophylaxis SCDs only in light of possible GI Bleed Disposition pending will need PT/OT eval Admission and Anticipated Discharge Date Admission Date: January 12, 2020 Subjective ff up for small bowel obstruction, possible upper GI bleed, atrial fibrillation Converted to sinus rhythm earlier in the morning Seen resting bed, comfortable, not in distress States she feels fine overall No abdominal pain, nausea vomiting, fevers or chills Denies chest pain, palpitations, dizziness, headache Denies other symptoms Review of Systems Review of Systems: All systems reviewed & are unremarkable except as noted in Subjective Physical Exam Physical Exam: General- oriented x 2, not in distress, speaks in sentences with no effort or accessory muscle use Eyes- anicteric Neck- no JVD NG tube in place, bilious fluid noted Lungs- clear breath sounds bilaterally, no rales/wheezes Heart- normal rate, regular rhythm; no murmurs Abdomen- normal bowel sounds, nondistended, soft, nontender Extremities- no pretibial edema, no calf tenderness Neuro- alert, oriented x 3; no gross focal neurologic deficits Skin- warm & dry Results & Data Results & Data ([facility]) Vital Signs (Past 12 Hours) Vital Signs Temp Pulse Pulse Resp BP Pulse Ox 01/14/20 15:18 36.5 C 98 H 18 126/74 91 01/14/20 15:00 84 01/14/20 11:50 36.9 C 78 18 111/68 92 01/14/20 08:09 36.9 C 77 18 106/68 93 01/14/20 08:00 72 Laboratory Results Laboratory Results - last 24 hr 01/14/20 01/14/20 07:35 07:35 WBC 7.02 RBC 3.55 L Hgb 8.4 L Hct 26.5 L MCV 74.6 L MCH 23.7 L MCHC 31.7 L RDW Std Deviation 50.3 H RDW Coeff of Gretta 18.4 H Plt Count 280 MPV 8.5 Immature Gran % (Auto) 0.6 Neut % (Auto) 79.9 Lymph % (Auto) 11.4 [place] % (Auto) 7.7 Eos % (Auto) 0.4 Baso % (Auto) 0.0 Neut # (Auto) 5.61 Lymph # (Auto) 0.80 L [place] # (Auto) 0.54 Eos # (Auto) 0.03 Baso # (Auto) 0.00 Immature Gran # (Auto) 0.04 H Sodium 136 Potassium 4.0 Chloride 104 Carbon Dioxide 28 Anion Gap 4.0 BUN 19 H Creatinine 0.56 L Est Cr Clr Drug Dosing 65.2 Est GFR ( Amer) 101.3 Est GFR (Non-Af Amer) 87.4 BUN/Creatinine Ratio 34.1 H Glucose 98 Calcium 8.6 Magnesium 1.7 L
--- NOTE | 2020-01-14 22:55 | Electrocardiogram Report ---
Test Reason : Blood Pressure : / mmHG Vent. Rate : 073 BPM Atrial Rate : 073 BPM P-R Int : 158 ms QRS Dur : 114 ms QT Int : 450 ms P-R-T Axes : 043 -51 019 degrees QTc Int : 495 ms Normal sinus rhythm Low voltage QRS Left anterior fascicular block Nonspecific T wave abnormality Prolonged QT Abnormal ECG When compared with ECG of 13-JAN-2020 07:21, Sinus rhythm has replaced Atrial fibrillation Nonspecific T wave abnormality now evident in Inferior leads Nonspecific T wave abnormality, improved in Lateral leads Confirmed by Juaquin Marte ([id number]) on 01/14/2020 10:55:17 PM Referred By: REFERRED SELF Confirmed By:Juaquin Marte
--- NOTE | 2020-01-15 05:06 | Surgery Progress Note ---
Date of Service January 15, 2020 Assessment & Plan (1) SBO (small bowel obstruction): -clinically improving -as bowel function is returning will advance to clears this morning Admission and Anticipated Discharge Date Admission Date: January 12, 2020 Supervising Physician Co-Signing Physician Notes I personally saw and evaluated the patient with Nael Patel PA-C and agree with the assessment and plan. 79 yo with resolving SBO -Clears today, may advance later if tolerates diet -Will follow Subjective Pt. notes she has no abdominal pain. Since NGT removed, she has been passing flatus and has had a few BMs--this was confromed with RN. Physical Exam Constitutional: well developed and well nourished; no acute distress Gastrointestinal (Abdomen): Percussion/Palpation: abdomen soft; abdomen nontender Results & Data ([facility]) Vital Signs (Past 12 Hours) Vital Signs Temp Pulse Resp BP BP Pulse Ox 01/15/20 03:32 37.1 C 81 17 128/70 96 01/14/20 23:54 36.8 C 83 17 117/73 97 01/14/20 18:59 36.8 C 95 H 18 120/79 96 PG Care Time/CCT Total # of Minutes Spent Total Time Spent with Patient: Total time spent is greater than 50% in coordination of care (as documented) at patient's floor/unit and/or counseling patient: Coding Level of Care Code 10177 Subseq Hosp Care Lvl 1 Diagnoses SBO (small bowel obstruction) K56.609
[2020-01-15 06:15] LABS: Eosinophils # (auto) 0.05 K/uL (0-0.5); Eosinophils % (auto) 0.8 %; Hematocrit (blood only) 25.3 % (37-47); Hemoglobin 7.9 g/dL (12.0-16.0); Immature Granulocytes # (auto) 0.05 K/uL (0.00-0.02); Immature Granulocytes % (auto) 0.8 %; Lymphocytes # (auto) 0.73 K/uL (1.2-3.4); Lymphocytes % (auto) 11.2 %; Mean Corpuscular Hemoglobin 23.2 pg (25-34); Mean Corpuscular Hgb Conc 31.2 g/dL (32-36); Mean Corpuscular Volume 74.4 fL (80-100); Mean Platelet Volume 8.6 fL (7.4-10.4); Monocytes # (auto) 0.58 K/uL (0.11-0.59); Monocytes % (auto) 8.9 %; Neutrophils # (auto) 5.13 K/uL (1.4-6.5); Neutrophils % (auto) 78.3 %; Platelet Count 278 K/uL (130-400); RDW Coefficient of Variation 18.4 % (11.5-14.5); White Blood Count 6.54 K/uL (4.8-10.8)
[2020-01-15 06:42] LABS: Ovalocytes 1+
[2020-01-15 06:43] LABS: BUN Creatinine Ratio 29.2 (10-20); Calcium 8.2 mg/dl (8.5-10.1); Creatinine Clr Calc Pharmacy 65.2 ml/min; Est GFR (African American) 101.3; Est GFR (Non-African American) 87.4; Magnesium 1.6 mg/dl (1.8-2.4); Potassium 3.9 mmol/L (3.5-5.1)
[2020-01-15] MEDS: METHYLPREDNISOLONE IV SCH (08:16)
[2020-01-15] MEDS: PANTOprazole 40 MG in SYRINGE 0 ML IV SCH ×2 (08:16→21:02)
[2020-01-15] MEDS: MAGNESIUM SULFATE / D5W 1 GM/100 ML BAG IV SCH ×2 (08:57→10:41)
[2020-01-15 11:46] LABS: Hematocrit (blood only) 26.3 % (37-47); Hemoglobin 8.1 g/dL (12.0-16.0)
--- NOTE | 2020-01-15 14:16 | Hospitalist Progress Note ---
Date of Service January 15, 2020 Assessment & Plan (1) SBO (small bowel obstruction): 79 year old female with history of COPD/Asthma, Bronchiectasis on Chronic Prednisone, Endometrial CA with Bone Mets s/p Chemo/Radiation/Surgery, and other problems noted below presenting with abdominal pain, coffee ground emesis. SMALL BOWEL OBSTRUCTION LIKELY FROM ADHESIONS, OXYCONTIN CT abd/pelv: 1. Moderately dilated fluid-filled small bowel without definitive transition point however stool within the right lower quadrant small bowel loops. The findings represent a small bowel obstruction. Mild associated mesenteric infiltration and interloop fluid. Fluid-filled distended stomach with hiatal h ernia. Nasogastric tube placement might be considered. 2. Interval development of several hypodense hepatic lesions consistent with metastases. A few small pulmonary nodules which were not present on prior PET/CT and are suspicious for metastases. 3. No significant change in blastic metastases. 4. Cholelithiasis. 5. Extensive colonic diverticulosis without evidence for acute diverticulitis. -- Positive BM -- NG tube discontinued -- started on clears, tolerating so far --Continue to monitor POSSIBLE UPPER GI BLEED risk factor: chronic Prednisone use Hg remains at 8.1 Protonix IV BID GI consulted: EGD not recommended at this point unless with significant decrease in hemoglobin Monitor closely ATRIAL FIBRILLATION in RVR, NEW ONSET likely from underlying SBO, GI bleed given Metoprolol 5mg IV one dose, HR improved from 160s to 110s, BP 108/60 Sweatband Separator consulted Placed on amiodarone Converted to sinus rhythm morning of 01/14/2020 Amiodarone discontinued Anticoagulation indicated secondary to possible GI bleed ENDOMETRIAL CA WITH BONE METS- PELVIS CT abd/pelvis showing new Liver mets and Pulm nodules per last ff up with Oncologist Dr. Garcia last month, family deciding on possible resumption of chemotherapy and initiation of palliative radiation therapy COPD/ASTHMA/BRONCHIECTASIS on chronic Prednisone 10mg po daily changed to Solumedrol 10mg IV daily DVT prophylaxis SCDs only in light of possible GI Bleed Disposition pending will need PT/OT eval Admission and Anticipated Discharge Date Admission Date: January 12, 2020 Subjective ff up for SBO, possible upper GI bleed, a fib, etc seen resting in bed, comfortable states she feels fine overall had BM yesterday and this AM tolerated clears this AM, no nausea denies SOB, chest pain, fever/chills no other symptoms Review of Systems Review of Systems: All systems reviewed & are unremarkable except as noted in Subjective Physical Exam Physical Exam: General- oriented x 2, not in distress, speaks in sentences with no effort or accessory muscle use Eyes- anicteric Neck- no JVD Lungs- clear BS bilaterally Heart- normal rate, regular rhythm; no murmurs Abdomen- normal bowel sounds, nondistended, soft, nontender Extremities- no pretibial edema, no calf tenderness Neuro- alert, oriented x 2; no gross focal neurologic deficits Skin- warm & dry Results & Data Results & Data ([facility]) Vital Signs (Past 12 Hours) Vital Signs Temp Pulse Pulse Resp BP BP Pulse Ox 01/15/20 11:50 37.2 C 82 19 103/66 93 01/15/20 08:01 36.8 C 81 19 112/70 96 01/15/20 08:00 80 01/15/20 03:32 37.1 C 81 17 128/70 96 Laboratory Results Laboratory Results - last 24 hr 01/15/20 01/15/20 01/15/20 05:56 05:56 11:35 WBC 6.54 RBC 3.40 L Hgb 7.9 L 8.1 L Hct 25.3 L 26.3 L MCV 74.4 L MCH 23.2 L MCHC 31.2 L RDW Std Deviation 50.0 H RDW Coeff of Gretta 18.4 H Plt Count 278 MPV 8.6 Immature Gran % (Auto) 0.8 Neut % (Auto) 78.3 Lymph % (Auto) 11.2 Graham % (Auto) 8.9 Eos % (Auto) 0.8 Baso % (Auto) 0.0 Neut # (Auto) 5.13 Lymph # (Auto) 0.73 L Graham # (Auto) 0.58 Eos # (Auto) 0.05 Baso # (Auto) 0.00 Immature Gran # (Auto) 0.05 H Ovalocytes 1+ Sodium 136 Potassium 3.9 Chloride 105 Carbon Dioxide 29 Anion Gap 2.0 L BUN 16 Creatinine 0.56 L Est Cr Clr Drug Dosing 65.2 Est GFR ( Amer) 101.3 Est GFR (Non-Af Amer) 87.4 BUN/Creatinine Ratio 29.2 H Glucose 99 Calcium 8.2 L Magnesium 1.6 L
[2020-01-15] MEDS: D5NSS + 20MEQ KCL 20 MEQ/1,000 ML BAG IV SCH (14:31)
--- NOTE | 2020-01-15 15:01 | Cardiology Progress Note ---
Date of Service January 15, 2020 Assessment & Plan (1) Atrial fibrillation with rapid ventricular response: (2) SBO (small bowel obstruction): (3) Endometrial cancer: Ongoing hypomagnesemia noted on laboratories, supplemented by the primary service earlier today. Patient still taking minimum in terms of oral input. Blood pressure still on the lower side, just about 100 mmHg. At present, we will continue to observe the patient off of rate control medication. If she has recurrence, consider low-dose IV metoprolol, or reinitiating amiodarone infusion. As previously noted, she converted back to sinus rhythm while on IV amiodarone earlier this hospital stay. She is not a candidate for anticoagulation due to anemia, bleeding concerns. SCDs for DVT prophylaxis. Admission and Anticipated Discharge Date Admission Date: January 12, 2020 Subjective Patient seen in follow-up. Nasogastric tube has been removed. She is comfortable. No complaints. On telemetry, sinus rhythm noted, however heart rates are trending up in the 70s to the 90s. Physical Exam Physical Exam: Temp Pulse Resp BP Pulse Ox 37.2 C 82 19 103/66 93 01/15/20 11:50 01/15/20 11:50 01/15/20 11:50 01/15/20 11:50 01/15/20 14:41 Respiratory: normal respiratory effort, lungs clear to auscultation Cardiovascular: RRR, no murmur, no edema Neurologic: PERRL, EOMI, accommodation nl, no face palsy, no dysarthria Results & Data ([facility]) Vital Signs (Past 12 Hours) Vital Signs Temp Pulse Pulse Resp BP BP Pulse Ox 01/15/20 14:41 93 01/15/20 14:37 94 01/15/20 11:50 37.2 C 82 19 103/66 93 01/15/20 08:01 36.8 C 81 19 112/70 96 01/15/20 08:00 80 01/15/20 03:32 37.1 C 81 17 128/70 96
[2020-01-16] MEDS: oxyCODONE HCL IR 5 MG TAB (IMMEDIATE RELEASE) PO PRN ×2 (01:26→20:44)
[2020-01-16] MEDS: D5NSS + 20MEQ KCL 20 MEQ/1,000 ML BAG IV SCH (06:16)
[2020-01-16 06:54] LABS: Eosinophils # (auto) 0.05 K/uL (0-0.5); Eosinophils % (auto) 0.8 %; Hematocrit (blood only) 24.8 % (37-47); Hemoglobin 7.5 g/dL (12.0-16.0); Immature Granulocytes # (auto) 0.12 K/uL (0.00-0.02); Lymphocytes # (auto) 0.95 K/uL (1.2-3.4); Lymphocytes % (auto) 15.8 %; Mean Corpuscular Hemoglobin 22.8 pg (25-34); Mean Corpuscular Hgb Conc 30.2 g/dL (32-36); Mean Corpuscular Volume 75.4 fL (80-100); Mean Platelet Volume 8.7 fL (7.4-10.4); Monocytes # (auto) 0.64 K/uL (0.11-0.59); Monocytes % (auto) 10.7 %; Neutrophils # (auto) 4.24 K/uL (1.4-6.5); Neutrophils % (auto) 70.7 %; Platelet Count 299 K/uL (130-400); RDW Coefficient of Variation 18.5 % (11.5-14.5); RDW Standard Deviation 51.3 fL (36.4-46.3); Red Blood Count 3.29 M/uL (4.2-5.4)
[2020-01-16 07:22] LABS: Ovalocytes 1+
[2020-01-16 07:25] LABS: BUN Creatinine Ratio 23.4 (10-20); Calcium 8.4 mg/dl (8.5-10.1); Est GFR (African American) 99.6; Magnesium 1.2 mg/dl (1.8-2.4); Potassium 3.7 mmol/L (3.5-5.1)
[2020-01-16] MEDS: PANTOprazole 40 MG in SYRINGE 0 ML IV SCH ×2 (08:11→20:42)
[2020-01-16] MEDS: METHYLPREDNISOLONE IV SCH (08:11)
--- NOTE | 2020-01-16 09:37 | Surgery Progress Note ---
Date of Service doing fine, passed BM, tolerated clear diet, no abdominal pain, no nausea, no vomiting, January 16, 2020 Assessment & Plan (1) SBO (small bowel obstruction): pt is 79 year-old female who was admitted to hospital for SBO, pt has not passed BM 2 days, no vomiting, IMP: SBO Plan, conservation treatment , no emergent surgery indication now, IV fluid, NPO, NG tube, repeat labs in am, will F/U 01/13/2020 12:10 PM F/U SBO, pt feels better, KUB- SBO, no BM yet, NG tube out put 490ml, continue conservative treatment, health information director surgeon cover this weekend, thanks, 01/16/2020 9:35AM SBO resolved full liquid diet, will F/U Admission and Anticipated Discharge Date Admission Date: January 12, 2020 Supervising Physician Co-Signing Physician Notes I personally saw and evaluated the patient with Nael Patel PA-C and agree with the assessment and plan. 79 yo with resolving SBO -Clears today, may advance later if tolerates diet -Will follow Subjective Patient seen in follow-up. Nasogastric tube has been removed. She is comfortable. No complaints. On telemetry, sinus rhythm noted, however heart rates are trending up in the 70s to the 90s. Review of Systems Constitutional: as per Subjective / HPI Eyes: as per Subjective / HPI Ear, Nose, Mouth, Throat: as per Subjective / HPI Respiratory: as per Subjective / HPI COPD, bronchiectasis, acute respiratory failure Cardiovascular: as per Subjective / HPI Additional Comments: A-fib Gastrointestinal: as per Subjective / HPI right inguinal hernia, colitis, bowel perforation Genitourinary: as per Subjective / HPI endometrial cancer, secondary carcinoma of bone Musculoskeletal: as per Subjective / HPI Integumentary: as per Subjective / HPI Neurologic: as per Subjective / HPI Psychiatric: as per Subjective / HPI Endocrine: as per Subjective / HPI Hematologic / Lymphatic: as per Subjective / HPI Allergy / Immunological: as per Subjective / HPI Physical Exam Constitutional: WD/WN, vitals as above well developed and well nourished Eyes: PERRL, conjunctivae normal, anicteric sclerae ENMT: external ear and nose normal, oropharynx normal Neck: trachea midline, no thyromegaly Respiratory: normal respiratory effort, lungs clear to auscultation Cardiovascular: Rate/Rhythm: + irregularly irregular Gastrointestinal (Abdomen): normal bowel sounds, soft, nontender, no hepatosplenomegaly Percussion/Palpation: abdomen soft Musculoskeletal: no cyanosis or clubbing, extremities motor strength 5/5 Skin: no rashes, warm and dry Neurologic: awake Psychiatric: Orientation: alert and oriented x 3 Results & Data ([facility]) Vital Signs (Past 12 Hours) Vital Signs Temp Pulse Pulse Resp BP Pulse Ox Pulse Ox 01/16/20 08:12 36.8 C 83 18 111/70 93 01/16/20 03:57 36.5 C 84 18 115/69 94 01/16/20 02:00 93 01/16/20 00:11 80 01/15/20 23:31 36.8 C 84 17 114/70 93 Laboratory Results Abnormal lab results 01/15/20 01/16/20 01/16/20 Range/Units 11:35 06:38 06:38 RBC 3.29 L (4.2-5.4) M/uL Hgb 8.1 L 7.5 L (12.0-16.0) g/dL Hct 26.3 L 24.8 L (37-47) % MCV 75.4 L (80-100) fL MCH 22.8 L (25-34) pg MCHC 30.2 L (32-36) g/dL RDW Std Deviation 51.3 H (36.4-46.3) fL RDW Coeff of Gretta 18.5 H (11.5-14.5) % Lymph # (Auto) 0.95 L (1.2-3.4) K/uL Campbell # (Auto) 0.64 H (0.11-0.59) K/uL Immature Gran # (Auto) 0.12 H (0.00-0.02) K/uL Creatinine 0.59 L (0.6-1.2) mg/dl BUN/Creatinine Ratio 23.4 H (10-20) Calcium 8.4 L (8.5-10.1) mg/dl Magnesium 1.2 L (1.8-2.4) mg/dl
[2020-01-16] MEDS: ACETAMINOPHEN 325 MG TAB PO PRN (10:47)
[2020-01-16] MEDS: MAGNESIUM OXIDE 400 MG TAB PO SCH ×2 (10:49→20:42)
[2020-01-16] MEDS: MAGNESIUM SULFATE / D5W 1 GM/100 ML BAG IV SCH ×2 (10:49→13:03)
[2020-01-16 12:19] LABS: Hematocrit (blood only) 26.5 % (37-47); Hemoglobin 8.1 g/dL (12.0-16.0)
--- NOTE | 2020-01-16 21:10 | Hospitalist Progress Note ---
Date of Service January 16, 2020 Assessment & Plan (1) SBO (small bowel obstruction): 79 year old female with history of COPD/Asthma, Bronchiectasis on Chronic Prednisone, Endometrial CA with Bone Mets s/p Chemo/Radiation/Surgery, and other problems noted below presenting with abdominal pain, coffee ground emesis. SMALL BOWEL OBSTRUCTION LIKELY FROM ADHESIONS, OXYCONTIN CT abd/pelv: 1. Moderately dilated fluid-filled small bowel without definitive transition point however stool within the right lower quadrant small bowel loops. The findings represent a small bowel obstruction. Mild associated mesenteric infiltration and interloop fluid. Fluid-filled distended stomach with hiatal h ernia. Nasogastric tube placement might be considered. 2. Interval development of several hypodense hepatic lesions consistent with metastases. A few small pulmonary nodules which were not present on prior PET/CT and are suspicious for metastases. 3. No significant change in blastic metastases. 4. Cholelithiasis. 5. Extensive colonic diverticulosis without evidence for acute diverticulitis. -- Positive BMs -- NG tube discontinued --Transition to full liquid diet --Continue to monitor POSSIBLE UPPER GI BLEED risk factor: chronic Prednisone use Hg remains at 8.1 Protonix IV BID GI consulted: EGD not recommended at this point unless with significant decrease in hemoglobin Monitor closely ATRIAL FIBRILLATION in RVR, NEW ONSET likely from underlying SBO, GI bleed given Metoprolol 5mg IV one dose, HR improved from 160s to 110s, BP 108/60 Salesperson Driver consulted Placed on amiodarone Converted to sinus rhythm morning of 01/14/2020 Amiodarone discontinued Anticoagulation indicated secondary to possible GI bleed ENDOMETRIAL CA WITH BONE METS- PELVIS CT abd/pelvis showing new Liver mets and Pulm nodules per last ff up with Oncologist Dr. Garcia last month, family deciding on possible resumption of chemotherapy and initiation of palliative radiation therapy COPD/ASTHMA/BRONCHIECTASIS on chronic Prednisone 10mg po daily changed to Solumedrol 10mg IV daily Back to prednisone 10 mg p.o. daily DVT prophylaxis SCDs only in light of possible GI Bleed Disposition pending will need PT/OT eval Admission and Anticipated Discharge Date Admission Date: January 12, 2020 Subjective Follow-up for small bowel obstruction, possible upper GI bleed, atrial fibrillation Seen resting in bed, comfortable, not in distress Tolerated full liquid diet for breakfast Denies abdominal pain, positive BMs No nausea vomiting Denies shortness of breath, chest pain, palpitations, dizziness No other symptoms Review of Systems Review of Systems: All systems reviewed & are unremarkable except as noted in Subjective Physical Exam Physical Exam: General- oriented x 2, not in distress, speaks in sentences with no effort or accessory muscle use Eyes- anicteric Neck- no JVD Lungs- clear BS bilaterally, no crackles, no wheezing Heart- normal rate, regular rhythm; no murmurs Abdomen- normal bowel sounds, nondistended, soft, nontender Extremities- no pretibial edema, no calf tenderness Neuro- alert, oriented x 2; no gross focal neurologic deficits Skin- warm & dry Results & Data Results & Data ([facility]) Vital Signs (Past 12 Hours) Vital Signs Temp Pulse Resp BP Pulse Ox 01/16/20 19:13 36.4 C L 88 16 116/72 95 01/16/20 15:57 36.6 C 86 18 112/70 93 01/16/20 12:07 36.8 C 89 17 97/61 L 92
[2020-01-17 07:05] LABS: Basophils # (auto) 0.01 K/uL (0-0.2); Basophils % (auto) 0.1 %; Eosinophils # (auto) 0.04 K/uL (0-0.5); Eosinophils % (auto) 0.5 %; Hematocrit (blood only) 25.4 % (37-47); Hemoglobin 7.8 g/dL (12.0-16.0); Immature Granulocytes # (auto) 0.21 K/uL (0.00-0.02); Immature Granulocytes % (auto) 2.8 %; Lymphocytes # (auto) 1.22 K/uL (1.2-3.4); Lymphocytes % (auto) 16.4 %; Mean Corpuscular Hemoglobin 22.7 pg (25-34); Mean Corpuscular Hgb Conc 30.7 g/dL (32-36); Mean Corpuscular Volume 74.1 fL (80-100); Mean Platelet Volume 8.5 fL (7.4-10.4); Monocytes # (auto) 0.74 K/uL (0.11-0.59); Neutrophils # (auto) 5.21 K/uL (1.4-6.5); Neutrophils % (auto) 70.2 %; Platelet Count 312 K/uL (130-400); RDW Coefficient of Variation 18.3 % (11.5-14.5); RDW Standard Deviation 49.5 fL (36.4-46.3); Red Blood Count 3.43 M/uL (4.2-5.4); White Blood Count 7.43 K/uL (4.8-10.8)
[2020-01-17 07:34] LABS: Ovalocytes 1+
[2020-01-17 07:44] LABS: BUN Creatinine Ratio 22.5 (10-20); Calcium 8.2 mg/dl (8.5-10.1); Creatinine Clr Calc Pharmacy 82.2 ml/min; Est GFR (African American) 106.6; Magnesium 1.3 mg/dl (1.8-2.4); Potassium 3.1 mmol/L (3.5-5.1)
[2020-01-17] MEDS: MAGNESIUM OXIDE 400 MG TAB PO SCH (09:01)
[2020-01-17] MEDS: ACETAMINOPHEN 325 MG TAB PO PRN ×2 (09:01→19:05)
[2020-01-17] MEDS: PANTOprazole 40 MG in SYRINGE 0 ML IV SCH ×2 (09:02→21:54)
[2020-01-17] MEDS: MAGNESIUM SULFATE / D5W 1 GM/100 ML BAG IV SCH ×2 (11:22→13:35)
[2020-01-17] MEDS: POTASSIUM CHLORIDE CRTAB 20 MEQ TABCR PO SCH ×2 (11:22→21:55)
--- NOTE | 2020-01-17 14:52 | Surgery Progress Note ---
Date of Service doing better, no abdominal pain, no nausea, no vomiting, tolerated diet. January 17, 2020 Assessment & Plan (1) SBO (small bowel obstruction): pt is 79 year-old female who was admitted to hospital for SBO, pt has not passed BM 2 days, no vomiting, IMP: SBO Plan, conservation treatment , no emergent surgery indication now, IV fluid, NPO, NG tube, repeat labs in am, will F/U 01/13/2020 12:10 PM F/U SBO, pt feels better, KUB- SBO, no BM yet, NG tube out put 490ml, continue conservative treatment, finance and administration manager surgeon cover this weekend, thanks, 01/16/2020 9:35AM SBO resolved full liquid diet, will F/U 01/17/2020 2:53PM SBO resolved regular diet, pt can be discharged from surgical point sign off today, please call with questions, thanks, Admission and Anticipated Discharge Date Admission Date: January 12, 2020 Supervising Physician Co-Signing Physician Notes I personally saw and evaluated the patient with Nael Patel PA-C and agree with the assessment and plan. 79 yo with resolving SBO -Clears today, may advance later if tolerates diet -Will follow Subjective Patient seen in follow-up. Nasogastric tube has been removed. She is comfortable. No complaints. On telemetry, sinus rhythm noted, however heart rates are trending up in the 70s to the 90s. Review of Systems Constitutional: as per Subjective / HPI Eyes: as per Subjective / HPI Ear, Nose, Mouth, Throat: as per Subjective / HPI Respiratory: as per Subjective / HPI COPD, bronchiectasis, acute respira tory failure Cardiovascular: as per Subjective / HPI Additional Comments: A-fib Gastrointestinal: as per Subjective / HPI right inguinal hernia, colitis, bowel perforation Genitourinary: as per Subjective / HPI endometrial cancer, secondary carcinoma of bone Musculoskeletal: as per Subjective / HPI Integumentary: as per Subjective / HPI Neurologic: as per Subjective / HPI Psychiatric: as per Subjective / HPI Endocrine: as per Subjective / HPI Hematologic / Lymphatic: as per Subjective / HPI Allergy / Immunological: as per Subjective / HPI Physical Exam Constitutional: WD/WN, vitals as above well developed and well nourished Eyes: PERRL, conjunctivae normal, anicteric sclerae ENMT: external ear and nose normal, oropharynx normal Neck: trachea midline, no thyromegaly Respiratory: normal respiratory effort, lungs clear to auscultation Cardiovascular: Rate/Rhythm: + irregularly irregular Gastrointestinal (Abdomen): normal bowel sounds, soft, nontender, no hepatosplenomegaly Percussion/Palpation: abdomen soft Musculoskeletal: no cyanosis or clubbing, extremities motor strength 5/5 Skin: no rashes, warm and dry Neurologic: awake Psychiatric: Orientation: alert and oriented x 3 Results & Data ([facility]) Vital Signs (Past 12 Hours) Vital Signs Temp Pulse Pulse Resp BP Pulse Ox 01/17/20 11:59 36.7 C 92 H 17 95/61 L 95 01/17/20 08:01 36.9 C 89 17 104/71 92 01/17/20 07:00 88 01/17/20 04:38 36.7 C 86 18 128/76 92
[2020-01-17] MEDS: HEPARIN 100 UNIT/ML 5ML FLUSH FLUSH PRN (16:00)
--- NOTE | 2020-01-17 20:32 | Hospitalist Progress Note ---
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 SMALL BOWEL OBSTRUCTION LIKELY FROM ADHESIONS, OXYCONTIN CT abd/pelv: 1. Moderately dilated fluid-filled small bowel without definitive transition point however stool within the right lower quadrant small bowel loops. The findings represent a small bowel obstruction. Mild associated mesenteric infiltration and interloop fluid. Fluid-filled distended stomach with hiatal h ernia. Nasogastric tube placement might be considered. 2. Interval development of several hypodense hepatic lesions consistent with metastases. A few small pulmonary nodules which were not present on prior PET/CT and are suspicious for metastases. 3. No significant change in blastic metastases. 4. Cholelithiasis. 5. Extensive colonic diverticulosis without evidence for acute diverticulitis. --Treated conservatively with bowel rest, NG tube placement, IV fluids --Patient had BMs after 2 to 3 days -- NG tube discontinued --Advanced gradually, tolerating well, now on soft diet --Continue to monitor POSSIBLE UPPER GI BLEED Return of coffee-ground emesis during admission risk factor: chronic Prednisone use Hg remains stable around 8 Protonix IV BID given GI consulted: EGD not recommended at this point unless with significant decrease in hemoglobin Monitor closely ATRIAL FIBRILLATION in RVR, NEW ONSET likely from underlying SBO, GI bleed Developed hospital day #2 Coin Machine Operator consulted Placed on amiodarone Converted to sinus rhythm morning of 01/14/2020 Amiodarone discontinued Anticoagulation indicated secondary to possible GI bleed ENDOMETRIAL CA WITH BONE METS- PELVIS CT abd/pelvis showing new Liver mets and Pulm nodules per last ff up with Oncologist Dr. Garcia last month, family deciding on possible resumption of chemotherapy and initiation of palliative radiation therapy As per patient's son, patient already has been referred to outpatient palliative care service COPD/ASTHMA/BRONCHIECTASIS on chronic Prednisone 10mg po daily DVT prophylaxis SCDs only in light of possible GI Bleed Disposition pending will need PT/OT eval May need to be transitioned to rehab or nursing home facility Plan of care discussed with patient's son Casey Boucher over the phone daily in detail at length All questions answered He is understanding, agreeable, comfortable plan of care Protocol patient's son Casey again today, no answer Signed out to Dr. Michaels Admission and Anticipated Discharge Date Admission Date: January 12, 2020 Subjective Follow-up for small bowel obstruction, possible upper GI bleed, atrial fibrillation, etc. Seen resting in bed, comfortable, not in distress States she feels fine overall Tolerating diet well Positive BMs No abdominal pain, nausea or vomiting, fevers or chills, chest pain, palpitations, dizziness Has minimal left hip pain worse with movement No other symptom Review of Systems Review of Systems: All systems reviewed & are unremarkable except as noted in Subjective Physical Exam Physical Exam: General- oriented x 2, not in distress, speaks in sentences with no effort or accessory muscle use Eyes- anicteric Neck- no JVD Lungs- clear breath sounds bilaterally, no wheezing, no crackles Heart- normal rate, regular rhythm; no murmurs Abdomen- normal bowel sounds, nondistended, soft, nontender Extremities- no pretibial edema, no calf tenderness Neuro- alert, oriented x 2; no gross focal neurologic deficits Skin- warm & dry Results & Data Results & Data ([facility]) Vital Signs (Past 12 Hours) Vital Signs Temp Pulse Pulse Resp BP BP Pulse Ox 01/17/20 19:32 36.4 C L 86 18 115/71 95 01/17/20 16:30 98 H 01/17/20 16:00 36.4 C L 89 18 93/53 L 94 01/17/20 11:59 36.7 C 92 H 17 95/61 L 95 Laboratory Results Laboratory Results - last 24 hr 01/17/20 01/17/20 06:26 06:26 WBC 7.43 RBC 3.43 L Hgb 7.8 L Hct 25.4 L MCV 74.1 L MCH 22.7 L MCHC 30.7 L RDW Std Deviation 49.5 H RDW Coeff of Gretta 18.3 H Plt Count 312 MPV 8.5 Immature Gran % (Auto) 2.8 Neut % (Auto) 70.2 Lymph % (Auto) 16.4 [place] % (Auto) 10.0 Eos % (Auto) 0.5 Baso % (Auto) 0.1 Neut # (Auto) 5.21 Lymph # (Auto) 1.22 [place] # (Auto) 0.74 H Eos # (Auto) 0.04 Baso # (Auto) 0.01 Immature Gran # (Auto) 0.21 H Ovalocytes 1+ Sodium 136 Potassium 3.1 L D Chloride 103 Carbon Dioxide 29 Anion Gap 4.0 BUN 11 Creatinine 0.48 L Est Cr Clr Drug Dosing 82.2 Est GFR ( Amer) 106.6 Est GFR (Non-Af Amer) 92.0 BUN/Creatinine Ratio 22.5 H Glucose 85 Calcium 8.2 L Magnesium 1.3 L
[2020-01-17] MEDS: predniSONE 10 MG TABLET PO SCH (21:54)
[2020-01-17] MEDS: MAGNESIUM CHLORIDE 64MG DELAYED REL TAB PO SCH (21:54)
[2020-01-18 06:23] LABS: Basophils # (auto) 0.01 K/uL (0-0.2); Basophils % (auto) 0.1 %; Eosinophils # (auto) 0.04 K/uL (0-0.5); Eosinophils % (auto) 0.5 %; Hematocrit (blood only) 26.9 % (37-47); Immature Granulocytes # (auto) 0.18 K/uL (0.00-0.02); Immature Granulocytes % (auto) 2.1 %; Lymphocytes # (auto) 0.96 K/uL (1.2-3.4); Mean Corpuscular Hemoglobin 22.1 pg (25-34); Mean Corpuscular Hgb Conc 29.7 g/dL (32-36); Mean Corpuscular Volume 74.3 fL (80-100); Mean Platelet Volume 8.6 fL (7.4-10.4); Monocytes # (auto) 0.63 K/uL (0.11-0.59); Monocytes % (auto) 7.2 %; Neutrophils # (auto) 6.87 K/uL (1.4-6.5); Neutrophils % (auto) 79.1 %; Platelet Count 325 K/uL (130-400); RDW Coefficient of Variation 18.1 % (11.5-14.5); RDW Standard Deviation 49.2 fL (36.4-46.3); Red Blood Count 3.62 M/uL (4.2-5.4); White Blood Count 8.69 K/uL (4.8-10.8)
[2020-01-18 06:41] LABS: Ovalocytes 1+
[2020-01-18 07:01] LABS: BUN Creatinine Ratio 21.2 (10-20); Calcium 8.6 mg/dl (8.5-10.1); Creatinine Clr Calc Pharmacy 67.6 ml/min; Est GFR (African American) 102.6; Est GFR (Non-African American) 88.5; Magnesium 1.2 mg/dl (1.8-2.4); Potassium 3.8 mmol/L (3.5-5.1)
[2020-01-18] MEDS: POTASSIUM CHLORIDE CRTAB 20 MEQ TABCR PO SCH ×2 (08:24→20:27)
[2020-01-18] MEDS: MAGNESIUM CHLORIDE 64MG DELAYED REL TAB PO SCH ×2 (08:25→20:25)
[2020-01-18] MEDS: predniSONE 10 MG TABLET PO SCH (08:26)
[2020-01-18] MEDS: PANTOprazole 40 MG in SYRINGE 0 ML IV SCH (09:28)
[2020-01-18] MEDS: oxyCODONE HCL IR 5 MG TAB (IMMEDIATE RELEASE) PO PRN ×3 (09:53→23:40)
--- NOTE | 2020-01-18 12:20 | Hospitalist Progress Note ---
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 (1) Small Bowel obstruction Likely related to adhesions, oxycontin CT abd/pelv showed moderately dilated fluid-filled small bowel without definitive transition point however stool within the right lower quadrant small bowel loops. The findings represent a small bowel obstruction. It also showed interval development of several hypodense hepatic lesions consistent with metastases, a few small pulmonary nodules which were not present on prior PET/CT and are suspicious for metastases. Treated conservatively NGT discontinued Tolerating diet well (2) Possible Upper GI bleed Report of coffee-ground emesis during admission Risk factor: chronic Prednisone use Hg remains stable around 8 Protonix IV BID given Change to po pantoprazole GI consulted: EGD not recommended at this point unless with significant decrease in hemoglobin Monitor closely (3) Paroxysmal Atrial Fibrillation with RVR, New onset Developed hospital day #2 Loan Workout Officer consulted Placed on amiodarone Converted to sinus rhythm morning of 01/14/2020 Amiodarone discontinued Anticoagulation contraindicated secondary to possible GI bleed (4) Endometrial carcinoma with bone mets CT abd/per last follow up with Oncologist Dr. Garcia last month, family deciding on possible resumption of chemotherapy and initiation of palliative radiation therapy As per patient's son, patient already has been referred to outpatient palliative care service Resumed home oxycontin at 10mg q12h Bowel regimen (5) COPD/ASTHMA/BRONCHIECTASIS on chronic Prednisone 10mg po daily DVT prophylaxis SCDs only in light of possible GI Bleed Awaiting PT/OT eval May need SNF/rehab Son called and updated Admission and Anticipated Discharge Date Admission Date: January 12, 2020 Subjective Patient seen and examined Reports feeling better Tolerating diet well. No nausea, vomiting No abdominal pain Has been passing flatus. Per RN, yet to have BM today Patient reports chronic left hip pain worse with movement Denied fevers, chills Denied chest pain, SOB, cough Denied dysuria, freq, urgency Physical Exam Constitutional: + well hydrated; no acute distress Elderly woman sitting in chair Eyes: PERRL, conjunctivae normal, anicteric sclerae ENMT: external ear and nose normal, oropharynx normal Respiratory: normal respiratory effort, lungs clear to auscultation Cardiovascular: Rate/Rhythm: regular rate and regular rhythm S1 S2 Chest (Breasts): Additional Comments: Left ant chest wall port Gastrointestinal (Abdomen): normal bowel sounds, soft, nontender, no hepatosplenomegaly Musculoskeletal: No pedal edema No tenderness on palpation of left hip Neurologic: AOx3, no focal deficits Psychiatric: A+Ox3, euthymic affect Results & Data Results & Data ([facility]) Vital Signs (Past 12 Hours) Vital Signs Temp Pulse Pulse Resp BP BP Pulse Ox 01/18/20 08:31 36.6 C 88 18 105/73 93 01/18/20 08:00 88 01/18/20 03:01 36.3 C L 89 17 117/72 96 Laboratory Results Laboratory Results - last 24 hr 01/18/20 01/18/20 06:05 06:05 WBC 8.69 RBC 3.62 L Hgb 8.0 L Hct 26.9 L MCV 74.3 L MCH 22.1 L MCHC 29.7 L RDW Std Deviation 49.2 H RDW Coeff of Gretta 18.1 H Plt Count 325 MPV 8.6 Immature Gran % (Auto) 2.1 Neut % (Auto) 79.1 Lymph % (Auto) 11.0 Toombs % (Auto) 7.2 Eos % (Auto) 0.5 Baso % (Auto) 0.1 Neut # (Auto) 6.87 H Lymph # (Auto) 0.96 L [place]ombs # (Auto) 0.63 H Eos # (Auto) 0.04 Baso # (Auto) 0.01 Immature Gran # (Auto) 0.18 H Ovalocytes 1+ Sodium 136 Potassium 3.8 D Chloride 104 Carbon Dioxide 29 Anion Gap 3.0 BUN 11 Creatinine 0.54 L Est Cr Clr Drug Dosing 67.6 Est GFR ( Amer) 102.6 Est GFR (Non-Af Amer) 88.5 BUN/Creatinine Ratio 21.2 H Glucose 94 Calcium 8.6 Magnesium 1.2 L
[2020-01-18] MEDS: MAGNESIUM SULFATE / D5W 1 GM/100 ML BAG IV SCH ×2 (18:41→20:07)
[2020-01-18] MEDS: PANTOprazole 40 MG TAB PO SCH (20:24)
[2020-01-18] MEDS: oxyCODONE HCL 10 MG TABCR (OxyCONTIN) PO SCH (20:30)
[2020-01-19 07:33] LABS: BUN Creatinine Ratio 21.9 (10-20); Calcium 8.4 mg/dl (8.5-10.1); Creatinine Clr Calc Pharmacy 61.9 ml/min; Est GFR (African American) 99.6; Magnesium 1.5 mg/dl (1.8-2.4); Phosphorus 2.6 mg/dl (2.5-4.9)
[2020-01-19] MEDS: oxyCODONE HCL 10 MG TABCR (OxyCONTIN) PO SCH ×2 (08:34→20:49)
[2020-01-19] MEDS: POLYETHYLENE (MIRALAX) 17 GM PACK PO SCH (08:34)
[2020-01-19] MEDS: MAGNESIUM SULFATE / D5W 1 GM/100 ML BAG IV SCH ×2 (08:35→10:52)
[2020-01-19] MEDS: MAGNESIUM CHLORIDE 64MG DELAYED REL TAB PO SCH ×2 (08:37→20:47)
[2020-01-19] MEDS: predniSONE 10 MG TABLET PO SCH (08:37)
[2020-01-19] MEDS: PANTOprazole 40 MG TAB PO SCH ×2 (08:37→20:46)
[2020-01-19] MEDS: POTASSIUM CHLORIDE CRTAB 20 MEQ TABCR PO SCH ×2 (08:37→20:46)
--- NOTE | 2020-01-19 13:49 | Hospitalist Progress Note ---
Date of Service January 19, 2020 Assessment & Plan (1) SBO (small bowel obstruction): 79 year old female with history of COPD/Asthma, Bronchiectasis on Chronic Prednisone, Endometrial CA with Bone Mets s/p Chemo/Radiation/Surgery, and other problems who presented with abdominal pain, coffee ground emesis. (1) Small Bowel obstruction Likely related to adhesions, oxycontin CT abd/pelv showed moderately dilated fluid-filled small bowel without definitive transition point however stool within the right lower quadrant small bowel loops. The findings represent a small bowel obstruction. It also showed interval development of several hypodense hepatic lesions consistent with metastases, a few small pulmonary nodules which were not present on prior PET/CT and are suspicious for metastases. Treated conservatively NGT discontinued SBO now resolved Hypomagnesemic. Being repleted (2) Possible Upper GI bleed Report of coffee-ground emesis during admission Risk factor: chronic Prednisone use Hg remains stable around 8 Continue po PPI GI consulted: EGD not recommended at this point unless with significant decrease in hemoglobin Monitor closely (3) Paroxysmal Atrial Fibrillation with RVR, New onset Developed hospital day #2 Press Operator Heavy Duty consulted Placed on amiodarone Converted to sinus rhythm morning of 01/14/2020 Amiodarone discontinued Anticoagulation contraindicated secondary to possible GI bleed (4) Endometrial carcinoma with bone mets CT abd/per last follow up with Oncologist Dr. Garcia last month, family deciding on possible resumption of chemotherapy and initiation of palliative radiation therapy As per patient's son, patient already has been referred to outpatient palliative care service Continue oxycontin pain regimen. Bowel regimen (5) COPD/ASTHMA/BRONCHIECTASIS on chronic Prednisone 10mg po daily DVT prophylaxis SCDs only in light of possible GI Bleed PT/OT eval noted CM working on placement Son called and updated Admission and Anticipated Discharge Date Admission Date: January 12, 2020 Subjective Patient seen and examined Denied any new complaints Reports hip pain is well controlled Last BM was yesterday Tolerating diet well. No nausea/vomiting Physical Exam Constitutional: + well hydrated; no acute distress Eyes: PERRL, conjunctivae normal, anicteric sclerae ENMT: external ear and nose normal, oropharynx normal Respiratory: normal respiratory effort, lungs clear to auscultation Cardiovascular: Rate/Rhythm: regular rate and regular rhythm Chest (Breasts): Additional Comments: Left anterior chest wall port Gastrointestinal (Abdomen): normal bowel sounds, soft, nontender, no hepatosplenomegaly Musculoskeletal: No pedal edema Neurologic: AOx3, no focal deficits Psychiatric: A+Ox3, euthymic affect Results & Data Results & Data ([facility]) Vital Signs (Past 12 Hours) Vital Signs Temp Pulse Pulse Resp BP BP Pulse Ox 01/19/20 11:48 37.3 C 86 18 103/65 91 01/19/20 07:46 89 01/19/20 07:20 36.8 C 87 17 110/70 93 01/19/20 04:22 37.5 C 93 H 18 100/66 94 Laboratory Results Laboratory Results - last 24 hr 01/19/20 06:48 Sodium 133 L Potassium 4.0 Chloride 100 Carbon Dioxide 29 Anion Gap 4.0 BUN 13 Creatinine 0.59 L Est Cr Clr Drug Dosing 61.9 Est GFR ( Amer) 99.6 Est GFR (Non-Af Amer) 86.0 BUN/Creatinine Ratio 21.9 H Glucose 91 Calcium 8.4 L Phosphorus 2.6 Magnesium 1.5 L
[2020-01-19] MEDS: oxyCODONE HCL IR 5 MG TAB (IMMEDIATE RELEASE) PO PRN (17:45)
[2020-01-20] MEDS: PANTOprazole 40 MG TAB PO SCH ×2 (09:17→21:54)
[2020-01-20] MEDS: MAGNESIUM CHLORIDE 64MG DELAYED REL TAB PO SCH ×2 (09:17→21:54)
[2020-01-20] MEDS: POLYETHYLENE (MIRALAX) 17 GM PACK PO SCH (09:17)
[2020-01-20] MEDS: predniSONE 10 MG TABLET PO SCH (09:17)
[2020-01-20] MEDS: POTASSIUM CHLORIDE CRTAB 20 MEQ TABCR PO SCH ×2 (09:17→09:28)
[2020-01-20] MEDS: oxyCODONE HCL 10 MG TABCR (OxyCONTIN) PO SCH ×2 (09:19→21:53)
[2020-01-20 09:45] LABS: BUN Creatinine Ratio 23.3 (10-20); Calcium 8.6 mg/dl (8.5-10.1); Est GFR (African American) 100.8; Est GFR (Non-African American) 86.9; Magnesium 1.4 mg/dl (1.8-2.4); Potassium 4.4 mmol/L (3.5-5.1)
[2020-01-20] MEDS ORDERED: MAGNESIUM SULFATE / D5W 1 GM/100 ML BAG IV STA (09:46)
--- NOTE | 2020-01-20 09:48 | Hospitalist Progress Note ---
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 (1) Small Bowel obstruction Likely related to adhesions, oxycontin CT abd/pelv showed moderately dilated fluid-filled small bowel without definitive transition point however stool within the right lower quadrant small bowel loops. The findings represent a small bowel obstruction. It also showed interval development of several hypodense hepatic lesions consistent with metastases, a few small pulmonary nodules which were not present on prior PET/CT and are suspicious for metastases. Treated conservatively NGT discontinued SBO now resolved Still hypomagnesemic. Give IV repletion. Continue po mag (2) Possible Upper GI bleed Report of coffee-ground emesis during admission that has resolved Risk factor: chronic Prednisone use Hg remains stable around 8 Continue po PPI GI consulted: EGD not recommended at this point unless with significant decrease in hemoglobin Monitor closely (3) Paroxysmal Atrial Fibrillation with RVR, New onset Developed hospital day #2 Orthopedic Rn consulted Placed on amiodarone Converted to sinus rhythm morning of 01/14/2020 Amiodarone discontinued Anticoagulation contraindicated secondary to possible GI bleed (4) Endometrial carcinoma with bone mets CT abd/per last follow up with Oncologist Dr. Garcia last month, family deciding on possible resumption of chemotherapy and initiation of palliative radiation therapy As per patient's son, patient already has been referred to outpatient palliative care service Continue oxycontin pain regimen. Bowel regimen (5) COPD/ASTHMA/BRONCHIECTASIS on chronic Prednisone 10mg po daily DVT prophylaxis SCDs only in light of possible GI Bleed PT/OT eval noted Awaiting placement Admission and Anticipated Discharge Date Admission Date: January 12, 2020 Subjective Patient seen and examined. Patient has no complaints today Chronic hip pain is well controlled Physical Exam Constitutional: + well hydrated; no acute distress Eyes: PERRL, conjunctivae normal, anicteric sclerae ENMT: external ear and nose normal, oropharynx normal Respiratory: normal respiratory effort, lungs clear to auscultation Cardiovascular: Rate/Rhythm: regular rate and regular rhythm Gastrointestinal (Abdomen): normal bowel sounds, soft, nontender, no hepatosplenomegaly Musculoskeletal: No pedal edema Neurologic: PERRL, EOMI, accommodation nl, no face palsy, no dysarthria Psychiatric: A+Ox3, euthymic affect Results & Data Results & Data ([facility]) Vital Signs (Past 12 Hours) Vital Signs Temp Pulse Pulse Resp BP Pulse Ox 01/20/20 07:46 37.5 C 93 H 18 95/69 L 92 01/20/20 05:59 37.1 C 86 18 107/70 91 01/20/20 03:01 85 Laboratory Results Laboratory Results - last 24 hr 01/20/20 07:42 Sodium 131 L Potassium 4.4 Chloride 100 Carbon Dioxide 28 Anion Gap 3.0 BUN 13 Creatinine 0.57 L Est Cr Clr Drug Dosing 64.0 Est GFR ( Amer) 100.8 Est GFR (Non-Af Amer) 86.9 BUN/Creatinine Ratio 23.3 H Glucose 84 Calcium 8.6 Magnesium 1.4 L
[2020-01-20] MEDS: POTASSIUM CHLORIDE PWD 20 MEQ PACK PO SCH ×2 (10:29→21:53)
[2020-01-20] MEDS: MAGNESIUM SULFATE / D5W 1 GM/100 ML BAG IV SCH ×2 (10:32→11:58)
[2020-01-21 06:46] LABS: Hematocrit (blood only) 25.7 % (37-47); Hemoglobin 7.7 g/dL (12.0-16.0); Mean Corpuscular Hemoglobin 22.4 pg (25-34); Mean Corpuscular Volume 74.7 fL (80-100); Mean Platelet Volume 9.2 fL (7.4-10.4); Platelet Count 330 K/uL (130-400); RDW Coefficient of Variation 18.4 % (11.5-14.5); Red Blood Count 3.44 M/uL (4.2-5.4); White Blood Count 7.43 K/uL (4.8-10.8)
[2020-01-21 07:16] LABS: BUN Creatinine Ratio 26.4 (10-20); Calcium 8.5 mg/dl (8.5-10.1); Creatinine Clr Calc Pharmacy 74.9 ml/min; Est GFR (African American) 103.2; Magnesium 1.4 mg/dl (1.8-2.4); Phosphorus 2.8 mg/dl (2.5-4.9); Potassium 4.1 mmol/L (3.5-5.1)
[2020-01-21] MEDS: MAGNESIUM CHLORIDE 64MG DELAYED REL TAB PO SCH ×2 (08:39→21:52)
[2020-01-21] MEDS: PANTOprazole 40 MG TAB PO SCH ×2 (08:39→21:52)
[2020-01-21] MEDS: oxyCODONE HCL 10 MG TABCR (OxyCONTIN) PO SCH ×2 (08:39→21:52)
[2020-01-21] MEDS: POLYETHYLENE (MIRALAX) 17 GM PACK PO SCH (08:40)
[2020-01-21] MEDS: POTASSIUM CHLORIDE PWD 20 MEQ PACK PO SCH ×2 (08:40→21:52)
[2020-01-21] MEDS: predniSONE 10 MG TABLET PO SCH (08:40)
[2020-01-21] MEDS: MAGNESIUM SULFATE / D5W 1 GM/100 ML BAG IV SCH ×3 (08:40→12:10)
[2020-01-21 09:44] LABS: Ferritin 823.3 ng/ml (8-388)
--- NOTE | 2020-01-21 11:07 | Hospitalist Progress Note ---
Date of Service January 21, 2020 Assessment & Plan (1) SBO (small bowel obstruction): 79 year old female with history of COPD/Asthma, Bronchiectasis on Chronic Prednisone, Endometrial CA with Bone Mets s/p Chemo/Radiation/Surgery, and other problems who presented with abdominal pain, coffee ground emesis. (1) Small Bowel obstruction Likely related to adhesions, oxycontin CT abd/pelv showed moderately dilated fluid-filled small bowel without definitive transition point however stool within the right lower quadrant small bowel loops. The findings represent a small bowel obstruction. It also showed interval development of several hypodense hepatic lesions consistent with metastases, a few small pulmonary nodules which were not present on prior PET/CT and are suspicious for metastases. Treated conservatively NGT discontinued SBO now resolved Still hypomagnesemic. Continue IV and po repletion Will plan to discharge on po mag Continue bowel regimen to ensure continued BM now that oxycontin is resumed (2) Possible Upper GI bleed Report of coffee-ground emesis during admission that has resolved Risk factor: chronic Prednisone use Hg has been stable in 8s. It is 7.7 today. Last BM yesterday was brown per RN Continue po PPI GI consulted: EGD not recommended at this point unless with significant decrease in hemoglobin Monitor closely Has microcytic anemia Anemia workup show anemia of chronic disease (3) Paroxysmal Atrial Fibrillation with RVR, New onset Developed hospital day #2 Inspector Bicycle consulted Placed on amiodarone Converted to sinus rhythm morning of 01/14/2020 Amiodarone discontinued Anticoagulation contraindicated secondary to possible GI bleed (4) Endometrial carcinoma with bone mets CT abd/per last follow up with Oncologist Dr. Garcia last month, family deciding on possible resumption of chemotherapy and initiation of palliative radiation therapy As per patient's son, patient already has been referred to outpatient palliative care service Continue oxycontin pain regimen. Bowel regimen (5) COPD/ASTHMA/BRONCHIECTASIS on chronic Prednisone 10mg po daily DVT prophylaxis SCDs only in light of possible GI Bleed PT/OT eval noted Awaiting placement Transfer to med/surg Admission and Anticipated Discharge Date Admission Date: January 12, 2020 Subjective Patient seen and examined Denied any complaints today Physical Exam Constitutional: + well hydrated; no acute distress Eyes: PERRL, conjunctivae normal, anicteric sclerae ENMT: external ear and nose normal, oropharynx normal Respiratory: normal respiratory effort, lungs clear to auscultation Cardiovascular: Rate/Rhythm: regular rate and regular rhythm S1 S2 Gastrointestinal (Abdomen): normal bowel sounds, soft, nontender, no hepatosplenomegaly Musculoskeletal: No pedal edema Neurologic: PERRL, EOMI, accommodation nl, no face palsy, no dysarthria Psychiatric: A+Ox3, euthymic affect Results & Data Results & Data ([facility]) Vital Signs (Past 12 Hours) Vital Signs Temp Pulse Pulse Pulse Resp BP BP 01/21/20 10:53 36.8 C 92 H 16 109/71 01/21/20 08:00 90 01/21/20 07:26 36.7 C 89 18 101/68 01/21/20 04:00 36.5 C 87 16 111/70 01/21/20 00:29 37.1 C 91 H 18 116/72 Pulse Ox 01/21/20 10:53 95 01/21/20 08:00 01/21/20 07:26 94 01/21/20 04:00 95 01/21/20 00:29 95 Laboratory Results Laboratory Results - last 24 hr 01/21/20 01/21/20 01/21/20 06:19 06:19 08:51 WBC 7.43 RBC 3.44 L Hgb 7.7 L Hct 25.7 L MCV 74.7 L MCH 22.4 L MCHC 30.0 L RDW Std Deviation 50.0 H RDW Coeff of Gretta 18.4 H Plt Count 330 MPV 9.2 Haptoglobin Sodium 133 L Potassium 4.1 Chloride 99 Carbon Dioxide 29 Anion Gap 5.0 BUN 14 Creatinine 0.53 L Est Cr Clr Drug Dosing 74.9 Est GFR ( Amer) 103.2 Est GFR (Non-Af Amer) 89.0 BUN/Creatinine Ratio 26.4 H Glucose 102 H Calcium 8.5 Phosphorus 2.8 Magnesium 1.4 L Iron 21 L TIBC 146 L Ferritin 823.3 H Lactate Dehydrogenase Vitamin B12 Folate 01/21/20 01/21/20 01/21/20 08:51 08:51 08:51 WBC RBC Hgb Hct MCV MCH MCHC RDW Std Deviation RDW Coeff of Gretta Plt Count MPV Haptoglobin Pending Sodium Potassium Chloride Carbon Dioxide Anion Gap BUN Creatinine Est Cr Clr Drug Dosing Est GFR ( Amer) Est GFR (Non-Af Amer) BUN/Creatinine Ratio Glucose Calcium Phosphorus Magnesium Iron TIBC Ferritin Lactate Dehydrogenase 214 Vitamin B12 Pending Folate Pending
[2020-01-21 11:44] LABS: Vitamin B12 > 2000 pg/ml (193-986)
[2020-01-21] MEDS: HEPARIN 100 UNIT/ML 5ML FLUSH FLUSH PRN (18:42)
[2020-01-21] MEDS: DOCUSATE SODIUM 100 MG CAP PO SCH (22:01)
[2020-01-22 06:32] LABS: Potassium 4.3 mmol/L (3.5-5.1)
[2020-01-22 06:34] LABS: Magnesium 1.5 mg/dl (1.8-2.4)
[2020-01-22] MEDS: HEPARIN 100 UNIT/ML 5ML FLUSH FLUSH PRN ×2 (07:31→16:40)
--- NOTE | 2020-01-22 09:16 | Hospitalist Progress Note ---
Date of Service January 22, 2020 Assessment & Plan (1) SBO (small bowel obstruction): 79 year old female with history of COPD/Asthma, Bronchiectasis on Chronic Prednisone, Endometrial CA with Bone Mets s/p Chemo/Radiation/Surgery, and other problems who presented with abdominal pain, coffee ground emesis. (1) Small Bowel obstruction Likely related to adhesions, oxycontin CT abd/pelv showed moderately dilated fluid-filled small bowel without definitive transition point however stool within the right lower quadrant small bowel loops. The findings represent a small bowel obstruction. It also showed interval development of several hypodense hepatic lesions consistent with metastases, a few small pulmonary nodules which were not present on prior PET/CT and are suspicious for metastases. Treated conservatively NGT discontinued SBO now resolved Still hypomagnesemic despite aggressive repletion Give 3g IV mag. Increase po to 128mg bid. Check mag in afternoon after repletion Will plan to discharge on po mag Continue bowel regimen to ensure continued BM (2) Possible Upper GI bleed Report of coffee-ground emesis during admission that has resolved Risk factor: chronic Prednisone use Hg has been stable in 8s. Hb was 7.7 yesterday. Continue po PPI GI consulted: EGD not recommended at this point unless with significant decrease in hemoglobin Monitor closely Has microcytic anemia Anemia workup show anemia of chronic disease Minimize blood draws (3) Paroxysmal Atrial Fibrillation with RVR, New onset Developed hospital day #2 Gear Machine Operator consulted Placed on amiodarone Converted to sinus rhythm morning of 01/14/2020 Amiodarone discontinued Anticoagulation contraindicated secondary to possible GI bleed (4) Endometrial carcinoma with bone mets CT abd/per last follow up with Oncologist Dr. Garcia last month, family deciding on possible resumption of chemotherapy and initiation of palliative radiation therapy As per patient's son, patient already has been referred to outpatient palliative care service Continue oxycontin pain regimen. Bowel regimen (5) COPD/ASTHMA/BRONCHIECTASIS on chronic Prednisone 10mg po daily DVT prophylaxis SCDs only in light of possible GI Bleed PT/OT eval noted Awaiting placement Admission and Anticipated Discharge Date Admission Date: January 12, 2020 Subjective Patient seen and examined Patient reports only pain with activity. Denied any chest pain, palpitations, cough, SOB Denied any abd pain, nausea, vomiting Tolerating diet wel. Has been passing flatus. She is not sure if she moved her bowels yesterday Physical Exam Constitutional: + well hydrated; no acute distress Eyes: PERRL, conjunctivae normal, anicteric sclerae ENMT: external ear and nose normal, oropharynx normal Respiratory: normal respiratory effort, lungs clear to auscultation Cardiovascular: Rate/Rhythm: regular rate and regular rhythm Gastrointestinal (Abdomen): normal bowel sounds, soft, nontender, no hepatosplenomegaly Musculoskeletal: No pedal edema Neurologic: PERRL, EOMI, accommodation nl, no face palsy, no dysarthria Psychiatric: A+Ox3, euthymic affect Results & Data Results & Data ([facility]) Vital Signs (Past 12 Hours) Vital Signs Temp Pulse Pulse Resp BP Pulse Ox 01/22/20 07:25 37 C 90 16 99/61 L 97 01/21/20 23:15 36.9 C 96 H 16 108/72 96 Laboratory Results Laboratory Results - last 24 hr 01/21/20 01/21/20 01/21/20 08:51 08:51 08:51 Potassium Magnesium Iron 21 L TIBC 146 L Ferritin 823.3 H Lactate Dehydrogenase 214 Vitamin B12 > 2000 H Folate 9.00 01/22/20 05:56 Potassium 4.3 Magnesium 1.5 L Iron TIBC Ferritin Lactate Dehydrogenase Vitamin B12 Folate
[2020-01-22] MEDS: PANTOprazole 40 MG TAB PO SCH ×2 (10:19→21:24)
[2020-01-22] MEDS: POTASSIUM CHLORIDE PWD 20 MEQ PACK PO SCH ×2 (10:19→21:24)
[2020-01-22] MEDS: DOCUSATE SODIUM 100 MG CAP PO SCH ×2 (10:19→22:27)
[2020-01-22] MEDS: predniSONE 10 MG TABLET PO SCH (10:19)
[2020-01-22] MEDS: oxyCODONE HCL 10 MG TABCR (OxyCONTIN) PO SCH ×2 (10:19→21:24)
[2020-01-22] MEDS: POLYETHYLENE (MIRALAX) 17 GM PACK PO SCH (10:24)
[2020-01-22] MEDS: MAGNESIUM SULFATE / D5W 1 GM/100 ML BAG IV SCH ×3 (10:27→14:30)
[2020-01-22] MEDS: MAGNESIUM CHLORIDE 64MG DELAYED REL TAB PO SCH ×2 (19:25→21:26)
[2020-01-23 04:08] LABS: Potassium 4.2 mmol/L (3.5-5.1)
[2020-01-23 04:10] LABS: Magnesium 1.6 mg/dl (1.8-2.4)
[2020-01-23] MEDS: oxyCODONE HCL IR 5 MG TAB (IMMEDIATE RELEASE) PO PRN ×2 (05:44→13:39)
[2020-01-23 07:11] VITALS: PULSE 83; TEMP 97.3; O2SAT 96
[2020-01-23] MEDS: PANTOprazole 40 MG TAB PO SCH (09:54)
[2020-01-23] MEDS: MAGNESIUM CHLORIDE 64MG DELAYED REL TAB PO SCH (09:54)
[2020-01-23] MEDS: DOCUSATE SODIUM 100 MG CAP PO SCH (09:55)
[2020-01-23] MEDS: POTASSIUM CHLORIDE PWD 20 MEQ PACK PO SCH (09:55)
[2020-01-23] MEDS: predniSONE 10 MG TABLET PO SCH (09:55)
[2020-01-23] MEDS: POLYETHYLENE (MIRALAX) 17 GM PACK PO SCH (10:01)
[2020-01-23] MEDS: oxyCODONE HCL 10 MG TABCR (OxyCONTIN) PO SCH (10:02)
[2020-01-23] MEDS: MAGNESIUM SULFATE / D5W 1 GM/100 ML BAG IV SCH ×2 (10:09→11:54)
--- NOTE | 2020-01-23 14:01 | Discharge Summary ---
Date of Service January 23, 2020 Admission HPI Per Admitting Provider History obtained from patient, family, and records. Limited history from patient secondary to chronic disorientation. Medical history significant for COPD/asthma/chronic bronchiectasis on chronic steroid Rx, metastatic endometrial cancer status post surgery/chemotherapy/radiation, chronic anemia (baseline hemoglobin 9), prediabetes. Last confinement October 2017 for sepsis secondary to colitis with microperfo ration status post conservative management. Patient decided to stop chemotherapy around April 2019. 4 months ago, patient had a mechanical fall which led to incidental discovery of bone mets on imaging. Patient mentation has not been the same after fall as per family. Patient family wondering about a stroke. Patient started by outpatient providers on [id number] OxyContin for uncontrolled hip bone mets pain last month. Patient/family to decide on chemotherapy as per recent outpatient Oncology note from last month. Re-radiation recommendation as per outpatient Radiation Oncology note from 2 months ago. Outpatient [facility]iative [facility] recommended DNR/limited treatment after video meeting with patient last month which patient son was not in agreement with. 3 days achy abdominal pain with bilious emesis and constipation symptoms. Patient denies chest pain, shortness of breath, cough symptoms. Patient a little more confused than usual as per family. No fever, no chills. PCP office ordered outpatient abdominal ultrasound yesterday which showed 3 hypoechoic areas within the liver concerning for metastatic disease. Cholelithiasis. Bilateral renal cysts. Trace ascites. Emesis later noted to be coffee-ground. No OTC NSAID intake. Patient brought to the ER for evaluation. NGT inserted at the ER for bowel obstruction. 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 Admission Exam Per Admitting Provider GENERAL: Comfortable, laconic, mild hearing impairment, no respiratory distress SKIN: Pallor, warm HEENT: Pale palpebral conjunctivae, no ptosis, dry buccal mucosa, NGT in place NECK : Supple, no tenderness CHEST : CTA, no tenderness HEART : Tachycardic, no obvious murmurs ABDOMEN: Some distention, nontender EXTREMITIES : No LE swelling/tenderness, no other conspicuous deformities noted NEUROLOGIC : Coherent, disoriented, no facial asymmetry, no other gross focality Principal Diagnosis Small bowel obstruction Possible upper GI bleed Paroxysmal Atrial fibrillation Discharge Exam Constitutional + well hydrated; no acute distress Eyes PERRL, conjunctivae normal, anicteric sclerae ENMT external ear and nose normal, oropharynx normal Respiratory normal respiratory effort, lungs clear to auscultation Cardiovascular Rate/Rhythm: regular rate and regular rhythm S1 S2 Chest (Breasts) Additional Comments: Anterior chest wall port Gastrointestinal (Abdomen) normal bowel sounds, soft, nontender, no hepatosplenomegaly Musculoskeletal No pedal edema Neurologic PERRL, EOMI, accommodation nl, no face palsy, no dysarthria Psychiatric A+Ox3, euthymic affect Discharge Data Allergies Allergy/AdvReac Type Severity Reaction Status Date / Time azithromycin Allergy Severe Hives Verified 01/12/20 00:38 mold Allergy Unknown SHORTNESS Verified 01/12/20 00:38 OF BREATH Consultations 01/11/20 23:32 ED Decision to Admit Stat 01/12/20 02:30 Consult Case Management - Discharge Planning Routine Consult Gastroenterology Routine Consult General Surgery Routine 01/12/20 08:48 Consult Cardiology Routine Ordered Studies 01/11/20 22:10 CT abd pelvis wo con Urgent Visualized portions of the lower chest demonstrate a large hiatal hernia. The stomach is fluid-filled and distended. There are trace bilateral pleural effusions. A few small lower lung pulmonary nodules measure up to 4 mm. These were not evident on PET/CT of November 09, 2019. No pneumatosis, free air or portal venous gas is present. Evaluation of the abdomen and pelvis is suboptimal on this unenhanced examination. Several hypodense hepatic lesions are noted. The largest is a 2.8 cm lateral segment hepatic lesion. These were not evident on the CT portion of the PET/CT of November 09, 2019. A gallstone is noted within the gallbladder. There is no pericholecystic infiltration. Mild gallbladder distention is unchanged. There is no biliary ductal dilatation. Unenhanced images of the spleen, adrenal glands and pancreas are unremarkable. Water attenuation bilateral renal lesions reflect cysts. There is extensive colonic diverticulosis without evidence for acute diverticulitis. Right inguinal hernia contains a loop of small bowel with a small amount of fluid. This does not appear to result in the bowel obstruction. The majority of the small bowel is dilated and fluid-filled. No definite transition point is identified however there is stool within small bowel within the right lower quadrant. These findings suggest a small small bowel dilatation. Mild mesenteric infiltration and trace ascites is noted. Numerous blastic metastases are similar to PET/CT of November 09, 2019. Several spine compression fractures may be pathologic. IMPRESSION: 1. Moderately dilated fluid-filled small bowel without definitive transition point however stool within the right lower quadrant small bowel loops. The findings represent a small bowel obstruction. Mild associated mesenteric infiltration and interloop fluid. Fluid-filled distended stomach with hiatal her lana. Nasogastric tube placement might be considered. 2. Interval development of several hypodense hepatic lesions consistent with metastases. A few small pulmonary nodules which were not present on prior PET/CT and are suspicious for metastases. 3. No significant change in blastic metastases. 4. Cholelithiasis. 5. Extensive colonic diverticulosis without evidence for acute diverticulitis. CT head/brain wo con Urgent No acute intracranial hemorrhage, midline shift, intracranial mass, hydrocephalus, territorial ischemia or abnormal extra-axial collection. Age- related involutional changes with ex vacuo ventriculomegaly. Minimal white matter hypodensities suggest a component of chronic microvascular ischemic disease. Cerebral vascular calcifications. Senescent calcifications of the lentiform nuclei. The calvarium is intact. Note is made of a metopic suture. Indeterminate 1.4 cm area of sclerosis involves the left frontal calvarium which is new from the 2013 exam. Unchanged mild sclerosis of the right frontal bone superior to the frontal sinus. The paranasal sinuses, mastoid air cells, and middle ear cavities are clear. IMPRESSION: 1. No acute intracranial abnormality. 2. No evidence of intracranial metastatic disease. 3. 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 Hospital Course (1) SBO (small bowel obstruction): 79 year old female with history of COPD/Asthma, Bronchiectasis on Chronic Prednisone, Endometrial CA with Bone Mets s/p Chemo/Radiation/Surgery, and other problems who presented with abdominal pain, coffee ground emesis. (1) Small Bowel obstruction Likely related to adhesions, oxycontin CT abd/pelv showed moderately dilated fluid-filled small bowel without definitive transition point however stool within the right lower quadrant small bowel loops. The findings represent a small bowel obstruction. It also showed interval development of several hypodense hepatic lesions consistent with metastases, a few small pulmonary nodules which were not present on prior PET/CT and are suspicious for metastases. Treated conservatively NGT discontinued SBO now resolved Still hypomagnesemic despite aggressive repletion Mag was 1.6 today. Got IV repletion Discharged on po mag and potassium Check Mag and potassium in 3 days (2) Possible Upper GI bleed Report of coffee-ground emesis during admission that has resolved Risk factor: chronic Prednisone use Hg has been stable in 8s. Last Hb was 7.7 Continue po PPI GI consulted: EGD not recommended at this point unless with significant decrease in hemoglobin Monitor closely Has microcytic anemia Anemia workup show anemia of chronic disease (3) Paroxysmal Atrial Fibrillation with RVR, New onset Developed hospital day #2 Stra[employer] [employer] Aligner consulted Placed on amiodarone Converted to sinus rhythm morning of 01/14/2020 Amiodarone discontinued Anticoagulation contraindicated secondary to possible GI bleed (4) Endometrial carcinoma with bone mets CT abd/per last follow up with Oncologist Dr. Garcia last month, family deciding on possible resumption of chemotherapy and initiation of palliative radiation therapy As per patient's son, patient already has been referred to outpatient palliative care service Continue oxycontin pain regimen. Oxycontin reduced to 10mg q12h while inpatient with good pain control Oxycodone now 5mg q6h prn for pain Bowel regimen (5) COPD/ASTHMA/BRONCHIECTASIS on chronic Prednisone 10mg po daily Discharged to SNF Total Time Total Time Spent Total Time Spent (In Minutes): 40 Total Time Includes: Examination of the Patient, Discharge Planning and Medication Reconciliation Discharge Plan Discharge Items Patient Disposition: Transfer [facility] Fac Reason For Visit: Abdominal pain and vomiting Discharge Diagnosis: Small bowel obstruction Possible upper GI bleed Paroxysmal Atrial fibrillation Activity: As commented below Activity Comment: Per Physical therapist instruction Non-emergency contact: Primary Care Provider Call non-emergency contact if: you have any medication questions and your symptoms worsen Follow-up/Referrals: Josiah Reddy MD [Primary Care Provider] - Diet: Heart Healthy Ambulatory Orders: Potassium (Routine) Timeframe: 3 Days Location: Determined by Patient Ordered By: Madyson Michaels Magnesium (Routine) Timeframe: 3 Days Location: Determined by Patient Ordered By: Madyson Holman Attending Provider Instructions: Ms Boucher. You came to the hospital complaining of abdominal pain and vomiting. You were evaluated and found to have small bowel obstruction. This was managed conservatively without surgery and has resolved. There was concern for upper GI bleed for which you were evaluated by [employer] and started on pantoprazole. You also had abnormal heart rhythm called Afib or Atrial fibrillation which was managed with medications and with aid of Straightener [employer] Aligner. Your heart rhythm reverted to normal. You were not started on blood thinners due to the possible bleed. Your magnesium has been low. You were started on tablet magnesium and potassium. Please do blood work (potassium and magnesium level) in 3 days to monitor levels. Your opioid medications were reduced to oxycontin 10mg twice a day from 20mg twice a day to minimize constipation effects and your pain has been controlled on this. You can use tylenol as needed for mild pain and oxycodone 5mg short acting as needed for severe pain as we have been doing the past week with good control. Please follow up with your Primary Doctor. It was a pleasure taking care of you. Pending Studies at Discharge: No Stand-Alone Forms: My [facility] Skilled Items Patient informed of condition?: Yes DNR: No Discharge Level of Care: Skilled Communicable Disease: No Discharge Prognosis: Stable Lines: PICC Urinary Catheter: No Medications and DC Order Prescriptions: New acetaminophen 325 mg Tablet 650 mg PO Q4H PRN (Reason: mild pain (scale score 1-4)) Qty: 50 RF: 0 polyethylene glycol 3350 [Miralax] 17 gram Powder In Packet 17 g PO DAILY 30 Days Qty: 30 RF: 0 potassium chloride 20 mEq Packet 20 meq PO DAILY 30 Days Qty: 30 RF: 0 pantoprazole 40 mg Tablet,Delayed Release (Dr/Ec) 40 mg PO BID 30 Days Qty: 60 RF: 0 docusate sodium 100 mg Capsule 100 mg PO BID 30 Days Qty: 60 RF: 0 magnesium chloride [Mag 64] 64 mg Tablet,Delayed Release (Dr/Ec) 128 mg PO BID 30 Days Qty: 120 RF: 0 oxycodone [OxyContin] 10 mg tablet,oral only,ext.rel.12 hr 10 mg PO BID Qty: 14 RF: 0 Continued prochlorperazine maleate 10 mg tablet 10 mg PO Q6H PRN (Reason: Nausea) RF: 0 prednisone 10 mg tablet 10 mg PO DAILY 30 Days Qty: 90 RF: 1 metformin 850 mg tablet 850 mg PO BIDM 30 Days Qty: 60 RF: 0 ondansetron 8 mg tablet,disintegrating 8 mg PO TID PRN (Reason: Nausea) Qty: 9 RF: 0 albuterol sulfate 90 mcg/actuation Hfa Aerosol Inhaler 2 puff INHALATION Q4 PRN (Reason: Shortness Of Breath) 30 Days Qty: 18 RF: 0 cholecalciferol (vitamin D3) 25 mcg (1,000 unit) capsule 1,000 units PO BID 30 Days Qty: 60 RF: 0 Changed oxycodone 5 mg capsule 5 mg PO Q6H PRN (Reason: Severe Pain (Scale Score 7-10)) Qty: 15 RF: 0 Discontinued oxycodone [OxyContin] 20 mg tablet,oral only,ext.rel.12 hr 20 mg PO Q12 RF: 0 Discharge Orders: Discharge Order (Routine); Ordered 01/23/20 Ordered By: Madyson Michaels Admission Data Admit Date/Time: 01/12/20 01:03 Attending Provider: Madyson Michaels I. Admit Provider: Horacio Marvin Primary Care Provider: Josiah Reddy Other Providers: [facility] ; [facility] ; Victor Manuel Cowan ; Horacio Marvin ; Veronique Allen ; Marylu Do ; Lana Cooney ; Annamarie Frank ; Teofilo Garay ; Gordy Pinto ; Casandra Elias ; Jed Pereira ; Leonardo Diamond ; Barb Bob ; Milli Cruz ; Nuvia Balbuena ; Tatum Morgan ; Kevin Mattson ; Fariha Dee ; Eric Esquivel Other Interventions: Discharge Summary Assessment (RN) Last Done: 01/23/20 14:29
[2020-01-23] MEDS: HEPARIN 100 UNIT/ML 5ML FLUSH FLUSH PRN ×2 (14:04→14:38)
[2020-01-23 14:33] VITALS: BP 99/61
== END 2020-01-23 15:26 | DRG 388 ==
LOC: ED 21:40 → 2W 01-12 01:03 → SUATTDRO 01-12 01:03 → 2W 01-12 02:02 → 2S 01-12 09:54 → 3N 01-21 12:38